=== PATIENT | female | born 1970 | race Caucasian/White ===

== ENCOUNTER 2023-09-24 12:16 | Inpatient (IN) | payer OTHER, SELFPAY ==
[2023-09-24] VITALS (39 sets, daily range): BP systolic 107–126; BP diastolic 52–81; PULSE 95–120; RESP 12–24; TEMP 36.4–36.8; O2SAT 95–100; BMI 33.3
--- NOTE | ~2023-09-24 | XR_ITS ---
EXAM: XR abdomen/kub 1V DATE: 10/03/2023 15:13 HISTORY: abdominal distention . COMPARISON: CT cap 09/25/2023. FINDINGS: Partially visualized posterior lumbar fusion hardware with interbody device. Bilateral tub al ligation. Left lower quadrant drainage catheter, tip terminating over the midline. Incompletely vi sualized shunt tubing terminating over the midline. Normal bowel gas pattern. Enlarged liver. Pelvic phleboliths. Degenerative changes in the spine and bilateral hips. IMPRESSION: No graphic evidence of obstruction or ileus. Reviewed, dictated and finalized at location K. CTOR OF RESERVATIONS
--- NOTE | ~2023-09-24 | CT_ITS ---
EXAMINATION: CT chest abdomen pelvis wo con DATE: 09/25/2023 20:42 CUSTOMER OPERATIONS INTERN INDICATION: Anemia. TECHNIQUE: Computed tomography (CT) of the chest, abdomen, and pelvis was performed without intraveno us contrast. The dose-length product was 1581.39 mGy-cm. Automated exposure control and iterative rec onstruction technique were employed. COMPARISON: None FINDINGS: CHEST CT: Elevated right diaphragm. Tracheostomy tube is present. There is fusiform ascending thoracic aortic a neurysm measuring 4.2 cm. Borderline heart size. No significant pleural or pericardial effusion. Ther e is bilateral lower lobe consolidation which may represent atelectasis or pneumonia. There are patch y groundglass opacities of the left upper lobe. ABDOMEN/PELVIS CT: There are changes of gastric bypass surgery. The liver, spleen, pancreas, adrenal glands are unremark able. Bladder wall is thickened. There is Neville catheter in the bladder. There is perivesical fatty i nfiltration. Findings suspicious for cystitis. There is bilateral hydronephrosis. Nonobstructive anna l pattern. There is a right ventriculoperitoneal shunt. There is a jejunal tube. Surgical spinal feng ges consistent with L4-5 fusion and discectomy. Moderate thoracic and lumbar spondylosis. IMPRESSION: 1. Bilateral airspace disease which may represent atelectasis and/or pneumonia. 2: Ascending thoracic fusiform aneurysm measuring 4.2 cm. 3: Moderate diffuse bladder wall thickening with perivesical fatty infiltration, consistent with cys titis. Moderate bilateral hydronephrosis. Reviewed, dictated and finalized at location A. OMER OPERATIONS INTERN IMPRESSION: 1. Bilateral airspace disease which may represent atelectasis and/or pneumonia. 2: Ascending thoracic fusiform aneurysm measuring 4.2 cm. 3: Moderate diffuse bladder wall thickening with perivesical fatty infiltratio n, consistent with cystitis. Moderate bilateral hydronephrosis.
--- NOTE | ~2023-09-24 | XR_ITS ---
EXAMINATION: XR chest 1V portable Exam Date/Time: 10/03/2023 15:05 FINANCIAL PLANNING ADVISER HISTORY: sob Comparison: 09/25/2023. RESULT: Lines, tubes, and devices: Tracheostomy tube in place. Shunt tubing traverses the right chest. Lungs and pleura: Low volumes with crowding. Streaky bibasilar opacities. Patchy increasing retrocar diac opacity. Cardiomediastinal silhouette: Stable. Other: No acute osseous or upper abdominal finding. IMPRESSION: Low volumes crowding and bibasilar atelectasis. Increased retrocardiac opacity may represent atelecta sis or infection, aspiration could also be considered. Reviewed, dictated and finalized at location K. NCIAL PLANNING ADVISER IMPRESSION: Low volumes crowding and bibasilar atelectasis. Increased retrocardiac opacity may represent atelectasis or infection, aspiration could also be considered.
--- NOTE | ~2023-09-24 | XR_ITS ---
EXAMINATION: XR abdomen gastric tube rechec DATE: 10/11/2023 13:58 INDICATION: Jejunostomy tube placement. TECHNIQUE: A semierect view of the abdomen was obtained. COMPARISON: CT abdomen and pelvis 09/25/2023 FINDINGS: The right lateral aspect of the abdomen is excluded. There are no dilated loops of bowel. T here is a jejunostomy tube in expected position. There is contrast in the tube and in bowel. There ar e changes of posterior fusion procedure in lumbar spine. There are inserts in the fallopian tubes. IMPRESSION: 1. Jejunostomy tube in expected position. Reviewed, dictated and finalized at location A. CIATE PASTOR
--- NOTE | ~2023-09-24 | US_ITS ---
US renal BI 09/26/2023 11:35 Procedure: Realtime transabdominal ultrasound of the kidneys and bladder. Indication: Elevated creatinine. Comparison: No prior studies for comparison. Findings: Renal echotexture is normal bilaterally without hydronephrosis, contour deforming mass or r enal calculus. The right kidney measures 11.6 cm and left kidney measures 12 cm. Bladder is decompre ssed by Neville catheter. Impression: 1: Unremarkable renal ultrasound. No stones, masses or hydronephrosis. Reviewed, dictated and finalized at location A. IC HEALTH TECHNICIAN Impression: 1: Unremarkable renal ultrasound. No stones, masses or hydronephrosis.
--- NOTE | ~2023-09-24 | XR_ITS ---
EXAMINATION: XR chest 1V portable INDICATION: Hypoxia TECHNIQUE: Portable AP chest at 1809 hours COMPARISON: 10/07/2023 FINDINGS: A tracheostomy is in place. There is mild atelectasis of the lung bases. No pleural effusio n or pneumothorax. The cardiomediastinal silhouette is stable. BUCKLE STRAP PUNCHER shunt catheter tubing courses over the right thorax. IMPRESSION: 1. Mild atelectasis of the lung bases. Reviewed, dictated and finalized at location F. OUND SALES CONSULTANT
--- NOTE | ~2023-09-24 | XR_ITS ---
Portable chest x-ray Comparison: 10/03/2023 Clinical History: Fever Findings: Tracheostomy cannula and PHOTOGRAPHIC ARTIST shunt are present. Lungs are clear, without focal consolidatio n or pleural effusion. Stable elevation right hemidiaphragm. Cardiomediastinal silhouette is stable. Bones and soft tissues are unremarkable. Impression: Clear lungs. Support tubes, as above. Reviewed, dictated and finalized at location . TER HELPER Impression: Clear lungs. Support tubes, as above.
--- NOTE | ~2023-09-24 | XR_ITS ---
XR chest 1V portable DATE: 09/25/2023 05:48 INDICATION: Tracheostomy secretions TECHNIQUE: Portable upright AP chest on 09/25/2023 at 0536 hours COMPARISON: None FINDINGS: Tracheostomy tube appears in satisfactory position. There are bibasilar pulmonary infiltrates and/or atelectasis. There is mild elevation of the right le af of the diaphragm. Heart size appears normal. No hilar or mediastinal enlargement is evident. No pneumothorax is detecte d. Right ventriculoperitoneal shunt catheter tubing is noted. IMPRESSION: Bibasilar infiltrate and/or atelectasis Tracheostomy tube Ventriculoperitoneal shunt catheter Reviewed, dictated and finalized at location A. NSED LAND SURVEYOR
--- NOTE | 2023-09-24 12:14 | ED.GENADULT ---
HPI - General Adult General Chief complaint: Recheck/Abnormal Lab/Rx Stated complaint: abn labs Source: family and EMS Mode of arrival: EMS History of Present Illness HPI narrative: 53 years old white female came from rehab by ambulance because of abnormal blood workup indicating does kidney is not working well. Patient got discharged from [facility] September 13, 2023 to rehab. Status post brain tumor resection with a lot of complication, currently patient have tracheostomy and feeding tube. Feeding tube probably clogged Sister at the bedside who is telling me that the last time so the patient was 3 days ago and was more lethargic and tired than today. Today looks much better. sister telling me that patient is bed ridden, Axel lift Related Data Allergies Allergy/AdvReac Type Severity Reaction Status Date / Time No Known Allergies Allergy Verified 09/24/23 12:27 Review of Systems Review of Systems: ROS unobtainable: Yes unobtainable due to medical condition Exam Narrative: General appearance: Well-developed, well-nourished , nonverbal, follow verbal commands Skin: Normal color Head: right cerebral shunt, status post surgery surgical scar dry and clean Eyes: Clear conjunctiva ENT: tracheostomy tube in place Chest and respiratory: Airway patent, no respiratory distress, no accessory muscle use Heart: Regular rate/rhythm Abdomen: Soft, nontender, no organomegaly, quiet bowel sounds, feeding tube in place Musculoskeletal: patient can wiggle his toes bilaterally, ankle and feet support cushion in place Neurologic: Alert , following verbal commands, nonverbal Course Consultations Consultation #1: Dr. Santizo Time: 19:27 Vital Signs Vital signs: Vital Signs Temperature 36.8 C 09/24/23 12:15 Pulse Rate 116 H 09/24/23 12:15 Respiratory Rate 24 H 09/24/23 12:15 Blood Pressure 112/70 09/24/23 12:15 Pulse Oximetry 99 09/24/23 12:15 Oxygen Delivery Trach Collar 09/24/23 12:15 Oxygen Flow Rate 3 09/24/23 12:15 Temperature 36.8 C 09/24/23 12:15 Pulse Rate 111 H 09/24/23 15:47 Respiratory Rate 20 09/24/23 15:47 Blood Pressure 119/79 09/24/23 15:46 Pulse Oximetry 99 09/24/23 15:47 Oxygen Delivery Trach Collar 09/24/23 12:15 Oxygen Flow Rate 3 09/24/23 12:15 Medical Decision Making MDM Narrative Medical decision making narrative: patient came from rehab in for elevated creatinine. Vital signs are stable, physical examination as above a, Differential diagnosis dehydration, electrolyte imbalance Blood workup showed hemoglobin of 6.8, according to the was 8.310 days ago. Creatinine today is 2.9, according to was 1.1 10 days ago. 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 Patient used to be on dialysis for few months, last 1 was 3 weeks ago . dialysis was stopped by her customer engagement analyst who requested to check blood test every week to monitor her creatinine. According to the that patient had brain tumor, surgery with a lot of complication including tracheostomy, feeding tube placement and kidney failure / on hemodialysis. Patient to be admitted to the hospitalist, Dr. alberts was notified, 2 units of packed RBCs ordered, 2 L of normal saline IV ordered Differential Diagnosis Differential Diagnosis: as above Medical Records Medical records reviewed: Yes I reviewed the external patient's medical records. Vital Signs Vital Signs: Vital Signs Temperature 36.8 C 09/24/23 12:15 Pulse Rate 116 H 09/24/23 12:15 Respiratory Rate 24 H 09/24/23 12:15 Blood Pressur
[2023-09-24 13:47] LABS: Basophils Percent Auto 0.2 % (0.2-1.2); Eosinophils Absolute Auto 0.3 K/mm3 (0-0.3); Eosinophils Percent Auto 2.5 % (0-4.4); Immature Granulocyte Absolute 0.08 K/mm3 (0.00-0.031); Immature Granulocyte Percent A 0.7 % (0-0.5); Lymphocytes Absolute Auto 2.02 K/mm3 (0.9-3.2); Lymphocytes Percent Auto 18.5 % (18.3-44.2); Mean Corpuscular HGB Conc 27.2 g/dl (32-36); Mean Corpuscular Hemoglobin 31.1 pg (26-34); Mean Corpuscular Volume 114.2 fl (80-100); Mean Platelet Volume 12.2 fl (7.4-10.4); Monocytes Absolute Auto 0.7 K/mm3 (0.1-0.6); Monocytes Percent Auto 6.4 % (2.6-8.5); Neutrophils Absolute Auto 7.8 K/mm3 (1.3-6.7); Neutrophils Percent Auto 71.7 % (45.5-73.1); Platelet Count Result 353 k/mm3 (150-375); Red Blood Count 2.19 M/mm3 (4.2-5.4); Red Cell Distribution Width 17.3 % (11.5-14.5); White Blood Count 10.9 K/mm3 (4.5-10.0)
[2023-09-24] MEDS: SODIUM CHLORIDE 0.9% IV 1,000 ML 999 ML IV CONT ×2 (13:48→19:16)
[2023-09-24 13:53] LABS: Alanine Aminotransferase 25 U/L (6-35); Albumin Level 3.4 g/dL (3.5-5.1); Alkaline Phosphatase 91 U/L (38-126); Anion Gap 8 mmol/L (8-16); Aspartate Amino Transferase 25 U/L (14-36); Bilirubin,Total 0.4 mg/dL (0.2-1.3); Blood Urea Nitrogen 103 mg/dL (7-17); Calcium 9.6 mg/dL (8.4-10.2); Carbon Dioxide 28 mmol/L (22-30); Chloride 123 mmol/L (98-107); Estimated CRCL calculation 22 ml/min; Estimated Glomerular Filt Rate 17; Glucose 102 mg/dL (65-110); Potassium 5.4 mmol/L (3.4-5.0); Sodium 159 mmol/L (137-145)
[2023-09-24 14:01] LABS: Hemoglobin 6.8 g/dL (12.0-15.0)
--- NOTE | 2023-09-24 20:32 | PM.IMHP ---
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 In emergency room patient was found to have a sodium to be 159, BUN of 103, creatinine of 2.9, potassium of 5.4, hemoglobin of 6.8 MCV of 114, patient tested negative for RSV, influenza type a, influenza type B and COVID-19. History has been obtained from who is at bedside. Review of Systems Review of Systems: ROS unobtainable: Yes unobtainable due to mental status (Encephalopathy, unresponsive) PMFSH Social History Social History Smoking status: Never smoker Alcohol intake: never Substance use: never Substance use type: does not use Spiritual care concerns: No Meds Home Medications and Allergies Home Medications Medication Instructions Recorded Confirmed Type Dakin's Solution 1 dose topical BID 09/24/23 09/24/23 History Jevity 1.2 Redd 75 ml feeding tube Q1H 09/24/23 09/24/23 History Miralax 17 g feeding tube Q12H PRN 09/24/23 09/24/23 History constipation. albuterol sulfate 2.5 mg/3 mL 2.5 mg inhalation Q4H PRN SOB 09/24/23 09/24/23 History (0.083 %) solution for nebulization amlodipine 5 tablet J-tube DAILY 09/24/23 09/24/23 History armodafinil 150 mg J-tube DAILY 09/24/23 09/24/23 History ascorbate calcium (vitamin C) 500 mg feeding tube DAILY 09/24/23 09/24/23 History famotidine 2.5 ml J-tube DAILY 09/24/23 09/24/23 History magnesium hydroxide 30 ml feeding tube Q24H PRN 09/24/23 09/24/23 History gastric secretions. scopolamine base 1 mg over 3 days 1 patch transdermal Q72H 09/24/23 09/24/23 History transdermal patch senna 5 ml J-tube QHS 09/24/23 09/24/23 History thiamine HCl (vitamin B1) 100 mg J-tube DAILY 09/24/23 09/24/23 History Allergies Allergy/AdvReac Type Severity Reaction Status Date / Time No Known Allergies Allergy Verified 09/24/23 12:27 Vital Signs Vital Signs - 24 hr 09/24/23 12:15 09/24/23 12:40 09/24/23 12:46 Temperature 98.2 F Pulse Rate 116 H 120 H 117 H Respiratory Rate 24 H 24 H 22 H Blood Pressure 112/70 122/79 Pulse Oximetry 99 99 95 Oxygen Delivery Trach Collar Oxygen Flow Rate 3 09/24/23 12:47 09/24/23 13:26 09/24/23 13:30 Temperature Pulse Rate 118 H 120 H 115 H Respiratory Rate 17 20 13 Blood Pressure Pulse Oximetry 98 99 Oxygen Delivery Oxygen Flow Rate 09/24/23 13:48 09/24/23 14:00 09/24/23 14:15 Temperature Pulse Rate 118 H 111 H 110 H Respiratory Rate 22 H 12 16 Blood Pressure Pulse Oximetry 97 97 99 Oxygen Delivery Oxygen Flow Rate 09/24/23 14:16 09/24/23 14:30 09/24/23 14:31 Temperature Pulse Rate 109 H 110 H 110 H Respiratory Rate 15 18 19 Blood Pressure 111/70 108/70 Pulse Oximetry 100 96 97 Oxygen Delivery Oxygen Flow Rate 09/24/23 14:47 09/24/23 15:00 09/24/23 15:01 Temperature Pulse Rate 111 H 111 H 114 H Respiratory Rate 20 15 20 Blood Pressure 124/80 Pulse Oximetry 100 99 100 Oxygen Delivery Oxygen Flow Rate 09/24/23 15:15 09/24/23 15:16 09/24/23 15:32 Temperature Pulse Rate 104 H 112 H 113 H Respiratory Rate 17 20 20 Blood Pressure 119/81 Pulse Oximetry 100 100 99 Oxygen Delivery Oxygen Flow Rate 09/24/23 15:46 09/24/23 15:47 09/24/23 16:15 Temperature Pulse Rate 115 H 111 H 113 H Respiratory Rate 22 H 20 18 Blood Pressure 119/79 Pulse Oximetry 96 99 98 Oxygen Delivery Oxygen Flow Rate 09/24/23 16:16 09/24/23 16:38 09/24/23 16:46 Temperature Pulse Rate 110 H 110 H Respiratory Rate 14 17 20 Blood Pressure 110/66 125/69 Pulse
[2023-09-24] MEDS: SODIUM CHLORIDE 0.9% IV 250 ML 30 ML IV CONT (20:58)
[2023-09-24] MEDS: TUBING, BLOOD SET 1 EACH XX (20:59)
--- NOTE | 2023-09-24 23:26 | PC.NURSE ---
This patient, Veronica Barragan, was admitted to 3 [facility] Surg Room 301-01. Patient/family oriented to hospital policies and general routines including ID bracelet, bed and alarms, visiting hours, pain management, procedures, bathroom and other care routines, personal items, smoking policy, room service/diet, and visiting hours. Information on how to activate the Rapid Response Team has been discussed. Patient/Family are encouraged to report perceived risks to care and to ask questions if they do not understand what they are told or what they should do.
[2023-09-25] VITALS (9 sets, daily range): BP systolic 107–136; BP diastolic 65–76; PULSE 92–108; RESP 18–20; TEMP 36.2–36.6; O2SAT 94–99; BMI 33.3
[2023-09-25] MEDS: SODIUM CHLORIDE 0.9% IV 1,000 ML 125 ML IV CONT (02:43)
[2023-09-25] MEDS: TUBING, BLOOD PLUM PUMP TUBING 1 EACH XX (03:45)
[2023-09-25 04:30] LABS: Influenza A QL RT-PCR Negative (Negative); Influenza B QL RT-PCR Negative (Negative); RSV RNA, RT-PCR Negative (Negative); SARS-CoV-2 RNA PCR Negative (Negative)
[2023-09-25 06:15] LABS: Hematocrit 31.2 % (37.0-47.0); Hemoglobin 8.9 g/dL (12.0-15.0); Mean Corpuscular HGB Conc 28.5 g/dl (32-36); Mean Corpuscular Hemoglobin 30.6 pg (26-34); Mean Corpuscular Volume 107.2 fl (80-100); Mean Platelet Volume 12.1 fl (7.4-10.4); Platelet Count Result 259 k/mm3 (150-375); Red Blood Count 2.91 M/mm3 (4.2-5.4); White Blood Count 8.6 K/mm3 (4.5-10.0)
[2023-09-25 06:34] LABS: Anion Gap 5 mmol/L (8-16); Blood Urea Nitrogen 98 mg/dL (7-17); Calcium 8.9 mg/dL (8.4-10.2); Carbon Dioxide 22 mmol/L (22-30); Chloride 130 mmol/L (98-107); Estimated CRCL calculation 25 ml/min; Estimated Glomerular Filt Rate 20; Glucose 77 mg/dL (65-110); Magnesium 2.9 mg/dL (1.6-2.3); Phosphorus 7.5 mg/dL (2.5-4.5); Potassium 5.1 mmol/L (3.4-5.0); Sodium 157 mmol/L (137-145)
[2023-09-25 10:14] LABS: Amorphous Sediment Urine Present; Appearance Urine Turbid (Clear); Bacteria Urine 4+ /hpf; Bilirubin Urine Negative (Negative); Blood Urine 3+ (Negative); Color Urine Yellow (Yellow); Glucose Urine UA Negative (Negative); Ketones Urine Negative (Negative); Leukocyte Esterase Ur 3+ LEU/UL (NEGATIVE); Mucus Urine Present /lpf; Need Manual Microscopic Reviewed; Nitrate Urine Negative (Negative); Non Pathogenic Casts >20; Protein Urine 3+ mg/dL (Negative); RBC Urine >100 /hpf (0-2); Specific Grav Ur 1.015 (1.001-1.035); Squamous Epithelial Cell Urine Moderate /hpf (Few); Urobilinogen Urine 0.2 mg/dL (<2.0); WBC Urine >100 /hpf (0-3); pH Urine 7.5 (5.0-9.0)
[2023-09-25 10:15] LABS: Add Urine Microscopic? YES
[2023-09-25] MEDS: amLODIPine BESYLATE 5 MG TABLET FEED TUBE (10:16)
[2023-09-25] MEDS: THIAMINE HCL 100 MG TABLET FEED TUBE (10:16)
[2023-09-25] MEDS: FAMOTIDINE 20 MG TABLET FEED TUBE (10:16)
[2023-09-25] MEDS: ASCORBIC ACID 500 MG TABLET FEED TUBE (10:16)
[2023-09-25] MEDS: DEXTROSE 5%/0.45% SOD CHL 1,000 ML 100 ML IV CONT (10:24)
[2023-09-25 10:25] LABS: Creatinine Urine 23.5 mg/dL
[2023-09-25 10:38] LABS: Sodium Urine Random 78 meq/L
--- NOTE | 2023-09-25 10:55 | PM.IMPN ---
Progress Note: A&P Assessment and Plan (1) Respiratory failure with hypoxia: Code(s): J96.91 - Respiratory failure, unspecified with hypoxia Status: Acute Assessment and Plan: Patient with chronic respiratory failure requiring trach. She normally on 5L O2 via trach collar. CXR showing bibasilar infiltrates and/or atelectasis Trach changed out over night. Routine trach care with suctioning as needed. (2) CONCEPCION (acute kidney injury): Code(s): N17.9 - Acute kidney failure, unspecified Status: Acute Assessment and Plan: BUN 103 and Cr 2.9 on admission. No old labs to establish baseline renal function. Likely to be pre renal and was started on IV fluids as NS. Repeat values better. Neville has been replaced and draining well so unlikely post-renal. Nephrology consulted. Decreased IV fluid rate and increase free water flushes. Renal US ordered. IV fluids adjusted. Continue to monitor BUN and creatinine Daily intake and output. Serial BMP (3) Hypernatremia: Code(s): E87.0 - Hyperosmolality and hypernatremia Status: Acute Assessment and Plan: Related to TF most likely. Benson 78 but could be higher if she had normal renal function. Advance water flushes Continue to monitor (4) Quadriplegia: Code(s): G82.50 - Quadriplegia, unspecified Status: Acute Assessment and Plan: Related to brain tumor and surgery Round the clock turning schedule Routine skin care (5) AMS (altered mental status): Code(s): R41.82 - Altered mental status, unspecified Status: Acute Assessment and Plan: Patient brought to the ED for alteed mental status. Probably metabolic encephalopathy related to above Continue current treatment as above Monitor for signs of improvement (6) Megaloblastic anemia: Code(s): D53.1 - Other megaloblastic anemias, not elsewhere classified Status: Acute Assessment and Plan: Hgb 6.8 on admission. No baseline Hgb to compare No evidence of acute blood loss but will perform further evaluation. Not on anticoagulation. No anemia evaluation performed prior to transfusion She was transfused on admission 2Units PRBC. Check stool guaiac. Check CT C/A/P Monitor HH (7) Dysphagia: Code(s): R13.10 - Dysphagia, unspecified Status: Acute Assessment and Plan: PEG tube in place. Resume tube feedings (8) Hyperkalemia: Code(s): E87.5 - Hyperkalemia Status: Acute Assessment and Plan: Potassium mildly elevated at 5.4 felt related to the CONCEPCION. Cortisol level elevated at 36 and TSH elevated at 6.9. Potassium better with IV fluids Monitor. (9) Brain tumor: Code(s): D49.6 - Neoplasm of unspecified behavior of brain Status: Acute Assessment and Plan: Status post resection Plan DVT Prophylaxis - SCDs Code status - full Subjective Date/time seen: 09/25/23 10:56 Interval history: 53yo female with hx of brain tumor s/p resection, ventriculoperitoneal shunt, tracheostomy, dysphagia with GTube and quadriplegia sent in from the [place] [facility] for altered mental status. Patient has eyes open but does not respond or shake her head to questions. Per RN, jennifer is able to nod when asked her name and able to give thumbs up. RN changed out the trach last night. Neville also was changed out. Review of Systems Review of Systems: ROS unobtainable: Yes unobtainable due to mental status Exam Narrative: AF 97.9 131/72 101 18 97% HFNC Gen - NARD lying semi-recumbent in bed HEENT - eyes open, dysconjugate gaze, pupils reactive, cruz not track. dry MM. well healed surgical scalp changes. right sided shunt noted neck - trach midline with gurgliing respirations Chest - coarse BS anteriroly. lone stitch noted left upper chest. CV - RRR S1/S2 Abd - Soft, ND, +BS, Gtube site clean and dry - Neville secured draining cloudy dark yellow urine Ext
--- NOTE | 2023-09-25 11:30 | PM.CNNEP ---
Assessment and Plan Assessment and plan (1) CONCEPCION (acute kidney injury): Code(s): N17.9 - Acute kidney failure, unspecified Status: Acute Assessment and Plan: the patient has acute kidney injury. She had this before and she even needed dialysis. That was a result of sepsis however. Her creatinine got down to about 1.1 according to the . That was the value on discharge from the LT[facility]. Now the creatinine is up to 2.5. I suspect that the patient is probably dehydrated. Will check a renal ultrasound and urine electrolytes as well as a CPK. She has received some IV fluids and will continue to receive IV fluids going forward. (2) Hypernatremia: Code(s): E87.0 - Hyperosmolality and hypernatremia Status: Acute Assessment and Plan: The patient's sodium level is high. She is free water depleted. She has increased insensible loss because of her tracheostomy. She was getting tube feed[facility] routinely [facility] the [facility] so she is probably behind in fluid. She might have DI because of the substantial amount of free water she was requiring to maintain her sodium. Will check urine osmolality and an ADH level. (3) AMS (altered mental status): Code(s): R41.82 - Altered mental status, unspecified Status: Acute Assessment and Plan: Most likely due to renal insufficiency plus the hypernatremia. I am not sure if a CT scan would be helpful. (4) Anemia: Code(s): D64.9 - Anemia, unspecified Status: Acute Assessment and Plan: Hemoglobin 8.9. She received some blood yesterday. Will check irons and vitamins. (5) Hyperkalemia: Code(s): E87.5 - Hyperkalemia Status: Acute Assessment and Plan: Potassium is down to 5.1. This should probably improved with fluids. (6) Quadriplegia: Code(s): G82.50 - Quadriplegia, unspecified Status: Acute Assessment and Plan: Status post brain surgery History of Present Illness Reason for Consult Consult date: 09/25/23 Chief Complaint Chief complaint: Anemia,CONCEPCION History of Present Illness Narrative: Veronica is an unfortunate 53-year-old lady who has had a brain tumor resection, ventricular peritoneal shunt, tracheostomy, and quadriplegia. The patient had her surgery done last fall. She had multiple complications from the surgery including sepsis, respiratory failure, severe hypotension, and renal failure. The patient required dialysis. She was on CRRT for a few weeks in early July and then was on intermittent hemodialysis for a few weeks after that and her kidney function improved such that she was off dialysis about 4-6 [address] ago[address] Along the way she had several other issues including the need for tube feedings. She was given standard tube feedings. She was given flushes at [facility] but her sodium levels betsy so she was given extra tube feeding flushes which eventually amounted [id number] every 2hours. After she was in the hospital she went to a long-term acute care. There she eventually Improved. She was a little more interactive, she was able to shrug her shoulders, will her toes, and give thumbs-up signs bilaterally. She was then transferred to an outpatient facility called [facility] as she was felt not to need long-term acute care any longer and this facility was closeest to her family. There she continued to receive tube feedings and she was getting physical therapy. She was not getting as much tube feeding flushes as she had been at long-term acute care. The patient developed changes in her in her mental status over the last few days. She was sent to the emergency room found to have a sodium of 159, BUN of 103, and creatinine of 2.9. She was given IV fluids and admitted to the floor. Currently the patient does not move much. Occasionally she tries to smile a little bit. She cannot give her review of syst
[2023-09-25 12:58] LABS: Creatine Kinase 73 U/L (30-135)
--- NOTE | 2023-09-25 13:03 | PC.NURSE ---
Patient resting comfortably. Family at bedside. Trio rounds with Dr. Santizo. Asked him about pain medication for patients sacral wound. Boots reapplied to patient feet. Skin intact.
[2023-09-25 13:11] LABS: Anion Gap 9 mmol/L (8-16); Blood Urea Nitrogen 89 mg/dL (7-17); Calcium 8.9 mg/dL (8.4-10.2); Carbon Dioxide 23 mmol/L (22-30); Chloride 129 mmol/L (98-107); Estimated CRCL calculation 26 ml/min; Estimated Glomerular Filt Rate 21; Glucose 134 mg/dL (65-110); Potassium 4.7 mmol/L (3.4-5.0); Sodium 161 mmol/L (137-145)
[2023-09-25 13:20] LABS: Iron 28 ug/dL (37-170)
[2023-09-25 13:30] LABS: Percent Iron Saturation 14 % (20-50)
[2023-09-25 14:03] LABS: Folic Acid 8.2 ng/mL (2.76->20)
[2023-09-25 14:42] LABS: Total Protein Urine Random > 600 mg/dL
[2023-09-25 18:48] LABS: Free T4 Free Thyroxine Reflex 1.06 ng/dL (0.78-2.19)
[2023-09-25 18:54] LABS: Anion Gap 12 mmol/L (8-16); Blood Urea Nitrogen 86 mg/dL (7-17); Calcium 8.5 mg/dL (8.4-10.2); Carbon Dioxide 19 mmol/L (22-30); Chloride 126 mmol/L (98-107); Estimated CRCL calculation 30 ml/min; Estimated Glomerular Filt Rate 25; Glucose 187 mg/dL (65-110); Potassium 4.2 mmol/L (3.4-5.0); Sodium 157 mmol/L (137-145)
[2023-09-25 23:02] LABS: Total Triiodothyronine (T3) 1.43 NG/ML (0.97-1.69)
[2023-09-26] VITALS (16 sets, daily range): BP systolic 111–132; BP diastolic 64–79; PULSE 6–107; RESP 18–22; TEMP 36.6–37.7; O2SAT 95–100
[2023-09-26 06:15] LABS: Basophils Percent Auto 0.1 % (0.2-1.2); Eosinophils Absolute Auto 0.3 K/mm3 (0-0.3); Eosinophils Percent Auto 3.4 % (0-4.4); Hematocrit 29.2 % (37.0-47.0); Hemoglobin 8.5 g/dL (12.0-15.0); Immature Granulocyte Absolute 0.05 K/mm3 (0.00-0.031); Immature Granulocyte Percent A 0.6 % (0-0.5); Lymphocytes Absolute Auto 1.55 K/mm3 (0.9-3.2); Lymphocytes Percent Auto 18.4 % (18.3-44.2); Mean Corpuscular HGB Conc 29.1 g/dl (32-36); Mean Corpuscular Hemoglobin 30.2 pg (26-34); Mean Corpuscular Volume 103.9 fl (80-100); Mean Platelet Volume 12.1 fl (7.4-10.4); Monocytes Absolute Auto 0.5 K/mm3 (0.1-0.6); Monocytes Percent Auto 6.4 % (2.6-8.5); Neutrophils Percent Auto 71.1 % (45.5-73.1); Platelet Count Result 253 k/mm3 (150-375); Red Blood Count 2.81 M/mm3 (4.2-5.4); Red Cell Distribution Width 18.3 % (11.5-14.5); White Blood Count 8.4 K/mm3 (4.5-10.0)
[2023-09-26] MEDS: WATER FOR IRRIGATION, STERILE 500 ML BOTTLE (06:15)
[2023-09-26 08:02] LABS: Anisocytosis 1+ (NORMAL); Hypochromasia 1+ (NORMAL); Platelet Estimate Adequate (Adequate); Schistocytes None Seen (NORMAL)
[2023-09-26 08:19] LABS: Alanine Aminotransferase 19 U/L (6-35); Albumin Level 2.8 g/dL (3.5-5.1); Alkaline Phosphatase 69 U/L (38-126); Anion Gap 12 mmol/L (8-16); Aspartate Amino Transferase 26 U/L (14-36); Bilirubin,Total 0.5 mg/dL (0.2-1.3); Blood Urea Nitrogen 78 mg/dL (7-17); Calcium 8.5 mg/dL (8.4-10.2); Carbon Dioxide 21 mmol/L (22-30); Chloride 123 mmol/L (98-107); Estimated CRCL calculation 33 ml/min; Estimated Glomerular Filt Rate 28; Glucose 124 mg/dL (65-110); Magnesium 2.5 mg/dL (1.6-2.3); Phosphorus 5.5 mg/dL (2.5-4.5); Potassium 4.1 mmol/L (3.4-5.0); Sodium 156 mmol/L (137-145)
[2023-09-26] MEDS: IPRATROPIUM BR 0.02% INH SOLN 0.5 MG/2.5 ML VIAL INHALATION ×3 (08:42→20:59)
[2023-09-26] MEDS: DORNASE ALFA INH SOLN 1 MG/ML 2.5 ML AMP 2.5 MG INHALATION ×2 (08:42→20:59)
[2023-09-26] MEDS: ALBUTEROL SULFATE NEB 2.5 MG/3 ML INH INHALATION ×3 (08:42→20:59)
[2023-09-26] MEDS: DEXTROSE 5%/0.45% SOD CHL 1,000 ML 100 ML IV CONT ×2 (08:51→20:38)
[2023-09-26 09:40] LABS: Creatinine Urine 23.3 mg/dL
[2023-09-26 09:45] LABS: Sodium Urine Random 72 meq/L
[2023-09-26] MEDS: SCOPOLAMINE 1 MG PATCH 1 PATCH TRANSDERM (09:47)
[2023-09-26] MEDS: THIAMINE HCL 100 MG TABLET FEED TUBE (09:52)
[2023-09-26] MEDS: SOD HYPOCHLORITE 1/4 STRENGTH 473 ML 1 APPLIC TOPICAL ×2 (09:52→20:40)
[2023-09-26] MEDS: amLODIPine BESYLATE 5 MG TABLET FEED TUBE (09:52)
[2023-09-26] MEDS: ASCORBIC ACID 500 MG TABLET FEED TUBE (09:53)
[2023-09-26] MEDS: FAMOTIDINE 20 MG TABLET FEED TUBE (09:53)
[2023-09-26 11:03] LABS: Total Protein Urine Random > 200 mg/dL
--- NOTE | 2023-09-26 11:26 | PM.IMPN ---
Progress Note: A&P Assessment and Plan (1) Respiratory failure with hypoxia: Code(s): J96.91 - Respiratory failure, unspecified with hypoxia Status: Acute Assessment and Plan: Patient with chronic respiratory failure requiring trach. She normally on 5L O2 via trach collar. CXR showing bibasilar infiltrates and/or atelectasis Trach changed out the other night Routine trach care with suctioning as needed. (2) CONCEPCION (acute kidney injury): Code(s): N17.9 - Acute kidney failure, unspecified Status: Acute Assessment and Plan: BUN 103 and Cr 2.9 on admission. No old labs to establish baseline renal function. Neville has been replaced and draining well CT scan showing bilateral hydronephrosis and moderate diffuse bladder wall thickening c/w cystitis UA concerning for infection. Prot/Cr ration 25g (and 8gm on repeat). TCK 73. Nephrology consulted and appreciate their input. Possibly pre-renal although has possibly ureteral obstruction from bladder wall thickening. Increased free water flushes. Repeat renal function values better. Renal US pending. IV fluids adjusted. Continue to monitor BUN and creatinine. Daily intake and output. (3) Hypernatremia: Code(s): E87.0 - Hyperosmolality and hypernatremia Status: Acute Assessment and Plan: Related to TF most likely and increased insensible losses. Benson 78 but could be higher if she had normal renal function. Advanced water flushes Continue to monitor (4) AMS (altered mental status): Code(s): R41.82 - Altered mental status, unspecified Status: Acute Assessment and Plan: Patient brought to the ED for alteed mental status. Probably metabolic encephalopathy related to above Continue current treatment as above Monitor for signs of improvement (5) Quadriplegia: Code(s): G82.50 - Quadriplegia, unspecified Status: Acute Assessment and Plan: Related to brain tumor and surgery Round the clock turning schedule Routine skin care (6) Megaloblastic anemia: Code(s): D53.1 - Other megaloblastic anemias, not elsewhere classified Status: Acute Assessment and Plan: Hgb 6.8 on admission. No baseline Hgb to compare but family states patient had an extensive workup and related to BM depression No evidence of acute blood loss CT Ch/A/P showing no etiology of blood loss. Not on anticoagulation. No anemia evaluation performed prior to transfusion but Iron studies consistent with anemia of chronic disease. B12/folate normal. She was transfused on admission 2Units PRBC. Check stool guaiac. Check CT C/A/P Monitor HH (7) Dysphagia: Code(s): R13.10 - Dysphagia, unspecified Status: Acute Assessment and Plan: PEG tube in place. Continue tube feedings (8) Hyperkalemia: Code(s): E87.5 - Hyperkalemia Status: Acute Assessment and Plan: Potassium mildly elevated at 5.4 felt related to the CONCEPCION. Cortisol level elevated at 36 and TSH elevated at 6.9. Potassium normal now Monitor. (9) Brain tumor: Code(s): D49.6 - Neoplasm of unspecified behavior of brain Status: Acute Assessment and Plan: Status post resection Take out stitch left upper chest Plan DVT Prophylaxis - SCDs Code status - full Subjective Date/time seen: 09/26/23 11:26 Interval history: 53yo female with hx of brain tumor s/p resection, ventriculoperitoneal shunt, tracheostomy, dysphagia with GTube and quadriplegia sent in from the [facility] for altered mental status. Patient has eyes open but poorly responsive. Family in the room and they were updated about plan of care. Stitch has been in place for permacath for 1 month Exam Narrative: AF 99.4 111/65 100 22 95% HF trach therapy Gen - NARD lying semi-recumbent in bed HEENT - eyes open, dysconjugate gaze neck - trach midline with gurgling respirations Chest - coarse
--- NOTE | 2023-09-26 13:01 | PM.PNNEP ---
Progress Note: A&P Assessment and Plan (1) CONCEPCION (acute kidney injury): Code(s): N17.9 - Acute kidney failure, unspecified Status: Acute Assessment and Plan: the patient has acute kidney injury. She had this before and she even needed dialysis. That was a result of sepsis however. Her creatinine got down to about 1.1 according to the . That was the value on discharge from the [facility]. Urine electrolytes are non pre renal. Urine has lots of protein. CK is normal Renal ultrasound not read yet but the images look like she has no hydro and good size kidneys with nice thick cortex. the creatinine is elevated. Unclear why possibly dehydrated? Will continue hypotonic IV fluids. (2) Hypernatremia: Code(s): E87.0 - Hyperosmolality and hypernatremia Status: Acute Assessment and Plan: The patient's sodium level is high. She is free water depleted. She has increased insensible loss because of her tracheostomy. She is getting tube feeding flushes plus hypotonic IV fluids. Sodium level has come down a little bit. Await urine osmolality and ADH. (3) AMS (altered mental status): Code(s): R41.82 - Altered mental status, unspecified Status: Acute Assessment and Plan: Most likely due to renal insufficiency plus the hypernatremia. (4) Anemia: Code(s): D64.9 - Anemia, unspecified Status: Acute Assessment and Plan: She received some blood Wednesday Hemoglobin 8.5. TSAT 14. Ferritin above 900. B12 and folate okay. (5) Hyperkalemia: Code(s): E87.5 - Hyperkalemia Status: Acute Assessment and Plan: Potassium is down to 4.1 (6) Quadriplegia: Code(s): G82.50 - Quadriplegia, unspecified Status: Acute Assessment and Plan: Status post brain surgery Subjective Date/time seen: 09/26/23 13:01 Interval history: Patient is not interactive. She does smile a little bit when I call her name. in the room we discussed the case. Exam Narrative: WDWN in NAD skin no rash head ncat lungs clear cor reg no rub abd BS+ nontender and soft ext Mild edema in the hands. Objective Data Vital Signs Vital Signs: Vital Signs - 24 hr 09/25/23 14:18 09/25/23 14:29 09/25/23 20:49 Temperature 97.4 F L Pulse Rate 108 H Respiratory Rate 18 Blood Pressure 123/76 Pulse Oximetry 94 96 95 Oxygen Delivery High Flow Therapy with Tr High Flow Therapy with Tr Oxygen Flow Rate 30 30 Fraction of Inspired Oxygen 45 45 09/25/23 20:00 09/26/23 01:29 09/26/23 00:00 Temperature 97.6 F 98.2 F Pulse Rate 108 H 107 H Respiratory Rate 20 18 Blood Pressure 136/74 124/68 Pulse Oximetry 97 96 96 Oxygen Delivery High Flow Therapy with Tr Oxygen Flow Rate 30 Fraction of Inspired Oxygen 45 09/26/23 04:40 09/25/23 20:00 09/26/23 04:00 Temperature 99.4 F Pulse Rate 105 H Respiratory Rate 20 Blood Pressure 111/65 Pulse Oximetry 96 96 97 Oxygen Delivery High Flow Therapy with Tr High Flow Therapy with Tr Oxygen Flow Rate 30 5 Fraction of Inspired Oxygen 45 45 09/26/23 08:42 09/26/23 08:42 09/26/23 09:11 Temperature Pulse Rate 96 100 Respiratory Rate 22 H 22 H Blood Pressure Pulse Oximetry 95 Oxygen Delivery High Flow Therapy with Tr Oxygen Flow Rate 30 Fraction of Inspired Oxygen 45 09/26/23 12:00 Temperature 98.5 F Pulse Rate 101 H Respiratory Rate 21 H Blood Pressure 124/64 Pulse Oximetry 99 Oxygen Delivery Oxygen Flow Rate Fraction of Inspired Oxygen Intake/Output Intake/Output: Intake & Output 09/23/23 09/24/23 09/25/23 09/26/23 23:59 23:59 23:59 23:59 Intake Total 2350 1350 3406 Output Total 2400 1000 Balance 2350 -1050 2406 Meds/Results Medications: Active Medications Generic Name Dose Route Start Last Admin Trade Name Freq PRN Reason Stop Dose Admin Albuterol 2.5
[2023-09-26] MEDS: SENNOSIDES 8.8 MG/5 ML SYRUP FEED TUBE (20:40)
[2023-09-27] VITALS (15 sets, daily range): BP systolic 94–118; BP diastolic 55–73; PULSE 73–94; RESP 13–20; TEMP 35.9–37.4; O2SAT 92–100
[2023-09-27] MEDS: ALBUTEROL SULFATE NEB 2.5 MG/3 ML INH INHALATION ×4 (01:56→20:54)
[2023-09-27] MEDS: IPRATROPIUM BR 0.02% INH SOLN 0.5 MG/2.5 ML VIAL INHALATION ×4 (01:56→20:54)
[2023-09-27 04:34] LABS: IFOB Positive Control Positive; Immunochemical Fecal Occult Bl Negative (N)
[2023-09-27] MEDS: DEXTROSE 5%/0.45% SOD CHL 1,000 ML 100 ML IV CONT ×2 (06:41→17:36)
[2023-09-27 06:51] LABS: Basophils Percent Auto 0.3 % (0.2-1.2); Eosinophils Absolute Auto 0.4 K/mm3 (0-0.3); Eosinophils Percent Auto 4.8 % (0-4.4); Hematocrit 27.8 % (37.0-47.0); Hemoglobin 7.9 g/dL (12.0-15.0); Immature Granulocyte Absolute 0.05 K/mm3 (0.00-0.031); Immature Granulocyte Percent A 0.6 % (0-0.5); Immature Platelet Fraction Pct 6.3 % (0.9-11.2); Lymphocytes Percent Auto 15.5 % (18.3-44.2); Mean Corpuscular HGB Conc 28.4 g/dl (32-36); Mean Corpuscular Volume 105.7 fl (80-100); Mean Platelet Volume 12.6 fl (7.4-10.4); Monocytes Absolute Auto 0.5 K/mm3 (0.1-0.6); Monocytes Percent Auto 6.1 % (2.6-8.5); Neutrophils Absolute Auto 5.6 K/mm3 (1.3-6.7); Neutrophils Percent Auto 72.7 % (45.5-73.1); Platelet Count Result 205 k/mm3 (150-375); Red Blood Count 2.63 M/mm3 (4.2-5.4); Red Cell Distribution Width 16.9 % (11.5-14.5); White Blood Count 7.7 K/mm3 (4.5-10.0)
[2023-09-27 07:09] LABS: Albumin Level 2.8 g/dL (3.5-5.1); Anion Gap 10 mmol/L (8-16); Blood Urea Nitrogen 68 mg/dL (7-17); Calcium 8.3 mg/dL (8.4-10.2); Carbon Dioxide 20 mmol/L (22-30); Chloride 121 mmol/L (98-107); Estimated CRCL calculation 39 ml/min; Estimated Glomerular Filt Rate 34; Glucose 115 mg/dL (65-110); Magnesium 2.4 mg/dL (1.6-2.3); Phosphorus 5.4 mg/dL (2.5-4.5); Potassium 4.5 mmol/L (3.4-5.0); Sodium 151 mmol/L (137-145)
[2023-09-27] MEDS: DORNASE ALFA INH SOLN 1 MG/ML 2.5 ML AMP 2.5 MG INHALATION ×2 (07:15→21:00)
[2023-09-27 08:30] LABS: Hypochromasia 1+ (NORMAL); Platelet Estimate Adequate (Adequate); Schistocytes None Seen (NORMAL)
[2023-09-27 08:31] LABS: Anisocytosis 1+ (NORMAL)
--- NOTE | 2023-09-27 09:51 | PM.PNNEP ---
Progress Note: A&P Assessment and Plan (1) CONCEPCION (acute kidney injury): Code(s): N17.9 - Acute kidney failure, unspecified Status: Acute Assessment and Plan: the patient has acute kidney injury. She had this before and she even needed dialysis. That was a result of sepsis however. Her creatinine got down to about 1.1 according to the . That was the value on discharge from the LT[facility]. Urine electrolytes are non pre renal. Urine has lots of protein. CK is normal Renal ultrasound not read yet but the images look like she has no hydro and good size kidneys with nice thick cortex. the creatinine is elevated. probably dehydrated. Creatinine has improved with IV fluids. Will continue hypotonic IV fluids. (2) Hypernatremia: Code(s): E87.0 - Hyperosmolality and hypernatremia Status: Acute Assessment and Plan: The patient's sodium level is high. She is free water depleted. She has increased insensible loss because of her tracheostomy. She is getting tube feeding flushes plus hypotonic IV fluids. Sodium level continues to improve. Will continue combination of hypotonic fluids plus the tube feeding flushes. Once the sodium is better we could stop the fluids and resume former tube feeding doses. (3) AMS (altered mental status): Code(s): R41.82 - Altered mental status, unspecified Status: Acute Assessment and Plan: Most likely due to renal insufficiency plus the hypernatremia. (4) Anemia: Code(s): D64.9 - Anemia, unspecified Status: Acute Assessment and Plan: She received some blood Wednesday Hemoglobin 7.9. TSAT 14. Ferritin above 900. B12 and folate okay. (5) Hyperkalemia: Code(s): E87.5 - Hyperkalemia Status: Acute Assessment and Plan: Potassium is down to 4.5 (6) Quadriplegia: Code(s): G82.50 - Quadriplegia, unspecified Status: Acute Assessment and Plan: Status post brain surgery Subjective Date/time seen: 09/27/23 09:51 Interval history: Veronica is lying comfortably in bed. Eyes open. she seemed to look at me when I called her name. Exam Narrative: WDWN in NAD skin no rash head ncat lungs A few upper airway sounds cor reg no rub no gallop abd BS+ nontender and soft ext Mild edema in the hands. Objective Data Vital Signs Vital Signs: Vital Signs - 24 hr 09/26/23 12:00 09/26/23 14:55 09/26/23 16:38 Temperature 98.5 F 99.8 F H Pulse Rate 101 H 100 Respiratory Rate 21 H 21 H Blood Pressure 124/64 132/76 Pulse Oximetry 99 99 97 Oxygen Delivery High Flow Therapy with Tr Oxygen Flow Rate 30 Fraction of Inspired Oxygen 45 09/26/23 16:38 09/26/23 16:51 09/26/23 19:44 Temperature 97.9 F Pulse Rate 98 97 89 Respiratory Rate 20 22 H 22 H Blood Pressure 118/79 Pulse Oximetry 99 Oxygen Delivery Oxygen Flow Rate Fraction of Inspired Oxygen 09/26/23 21:00 09/26/23 21:03 09/26/23 21:18 Temperature Pulse Rate 92 6 L Respiratory Rate 20 20 Blood Pressure Pulse Oximetry 96 Oxygen Delivery High Flow Therapy with Tr Oxygen Flow Rate 30 Fraction of Inspired Oxygen 45 09/27/23 00:00 09/26/23 20:00 09/27/23 01:56 Temperature 97.7 F Pulse Rate 88 88 94 Respiratory Rate 18 18 20 Blood Pressure 105/57 L Pulse Oximetry 100 100 Oxygen Delivery High Flow Therapy with Tr Oxygen Flow Rate 5 Fraction of Inspired Oxygen 45 09/27/23 02:09 09/27/23 04:00 09/27/23 07:15 Temperature 99.4 F Pulse Rate 73 91 89 Respiratory Rate 20 18 16 Blood Pressure 112/63 Pulse Oximetry 100 92 Oxygen Delivery High Flow Therapy with Tr Oxygen Flow Rate 30 Fraction of Inspired Oxygen 45 09/27/23 07:15 09/27/23 07:25 09/27/23 08:00 Temperature 97.9 F Pulse Rate 89 87 87 Respiratory Rate 16 18 18 Blood Pressure 113/67 Pulse Oximetry 100 Oxygen Delivery
[2023-09-27] MEDS: FAMOTIDINE 20 MG TABLET FEED TUBE (10:00)
[2023-09-27] MEDS: amLODIPine BESYLATE 5 MG TABLET FEED TUBE (10:00)
[2023-09-27] MEDS: ASCORBIC ACID 500 MG TABLET FEED TUBE (10:00)
[2023-09-27] MEDS: SOD HYPOCHLORITE 1/4 STRENGTH 473 ML 1 APPLIC TOPICAL (10:00)
[2023-09-27] MEDS: THIAMINE HCL 100 MG TABLET FEED TUBE (10:00)
--- NOTE | 2023-09-27 10:47 | PM.IMPN ---
Progress Note: A&P Assessment and Plan (1) Respiratory failure with hypoxia: Code(s): J96.91 - Respiratory failure, unspecified with hypoxia Status: Acute Assessment and Plan: Patient with chronic respiratory failure requiring trach. She normally on 5L O2 via trach collar. CXR showing bibasilar infiltrates and/or atelectasis Trach changed out here Routine trach care with suctioning as needed. (2) CONCEPCION (acute kidney injury): Code(s): N17.9 - Acute kidney failure, unspecified Status: Acute Assessment and Plan: BUN 103 and Cr 2.9 on admission. Per family, last Cr 1.13 Neville has been replaced and draining well CT scan showing bilateral hydronephrosis and moderate diffuse bladder wall thickening c/w cystitis UA concerning for infection. Prot/Cr ratio 25g (and 8gm on repeat). TCK 73. Nephrology consulted and appreciate their input. Possibly pre-renal although has possibly ureteral obstruction from bladder wall thickening. Increased free water flushes and in IVF Renal US showing no stones, masses or hydronephrosis Was Neville obstructed? Repeat renal function values better. Continue to monitor BUN and creatinine. Daily intake and output. (3) Hypernatremia: Code(s): E87.0 - Hyperosmolality and hypernatremia Status: Acute Assessment and Plan: Related to TF and increased insensible losses. Benson 78 but could be higher if she had normal renal function. Advanced water flushes Na level down to 151 Continue to monitor (4) AMS (altered mental status): Code(s): R41.82 - Altered mental status, unspecified Status: Acute Assessment and Plan: Patient brought to the ED for alteed mental status. Probably metabolic encephalopathy related to above Continue current treatment as above Monitor for signs of improvement (5) Quadriplegia: Code(s): G82.50 - Quadriplegia, unspecified Status: Acute Assessment and Plan: Related to brain tumor and surgery Round the clock turning schedule Has a decubitus present on admission. Wound care to see tomorrow Routine skin care (6) Megaloblastic anemia: Code(s): D53.1 - Other megaloblastic anemias, not elsewhere classified Status: Acute Assessment and Plan: Hgb 6.8 on admission. No baseline Hgb to compare but family states patient had an extensive workup and related to BM depression No evidence of acute blood loss CT Ch/A/P showing no etiology of blood loss. Stool guaiac negative. Not on anticoagulation. No anemia evaluation performed prior to transfusion but Iron studies consistent with anemia of chronic disease. B12/folate normal. She was transfused on admission 2Units PRBC. hgb climbed to 7-8 range Monitor HH (7) Dysphagia: Code(s): R13.10 - Dysphagia, unspecified Status: Acute Assessment and Plan: PEG tube in place. Order enzymatic treatment Continue tube feedings (8) Hyperkalemia: Code(s): E87.5 - Hyperkalemia Status: Acute Assessment and Plan: Potassium mildly elevated at 5.4 felt related to the CONCEPCION. Cortisol level elevated at 36 and TSH elevated at 6.9. Potassium normal now Monitor. (9) Brain tumor: Code(s): D49.6 - Neoplasm of unspecified behavior of brain Status: Acute Assessment and Plan: Status post resection Plan DVT Prophylaxis - SCDs Code status - full Subjective Date/time seen: 09/27/23 10:47 Interval history: 53yo female with hx of brain tumor s/p resection, ventriculoperitoneal shunt, tracheostomy, dysphagia with GTube and quadriplegia sent in from the [facility] for altered mental status. Patient has eyes open but poorly responsive. Family in the room and they were updated about plan of care. Family states the last Cr prior to discharge was 1.13. 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
--- NOTE | 2023-09-27 11:21 | PC.NURSE ---
unable to aspirate on Jtube, attempted flush, gave resistance, finally was able to flush,then give meds through tube. after meds, unable to flush again. myself and 2 other nurses attempted to flush, we changed to earlene valve, still unable to flush. made Dr Monreal aware, he ordered to have enzymes put in tube to see if that will help. We are unable to push any water into tube. Will attempt enzymes.
[2023-09-27] MEDS: ACETAMINOPHEN 325 MG TABLET 650 MG FEED TUBE (17:38)
[2023-09-27 23:26] LABS: Glucose Point of Care 110 mg/dl (65-105)
[2023-09-28] VITALS (16 sets, daily range): BP systolic 107–121; BP diastolic 56–73; PULSE 77–103; RESP 14–24; TEMP 36.4–37.8; O2SAT 94–100
[2023-09-28] MEDS: SENNOSIDES 8.8 MG/5 ML SYRUP FEED TUBE ×2 (00:19→21:10)
[2023-09-28] MEDS: SOD HYPOCHLORITE 1/4 STRENGTH 473 ML 1 APPLIC TOPICAL ×3 (00:21→21:10)
[2023-09-28] MEDS: ALBUTEROL SULFATE NEB 2.5 MG/3 ML INH INHALATION ×4 (02:54→19:18)
[2023-09-28] MEDS: IPRATROPIUM BR 0.02% INH SOLN 0.5 MG/2.5 ML VIAL INHALATION ×4 (02:54→19:17)
[2023-09-28 05:49] LABS: Glucose Point of Care 113 mg/dl (65-105)
[2023-09-28] MEDS: DORNASE ALFA INH SOLN 1 MG/ML 2.5 ML AMP 2.5 MG INHALATION ×2 (08:19→19:18)
[2023-09-28] MEDS: FAMOTIDINE 20 MG TABLET FEED TUBE (08:59)
[2023-09-28] MEDS: ASCORBIC ACID 500 MG TABLET FEED TUBE (08:59)
[2023-09-28] MEDS: DEXTROSE 5%/0.45% SOD CHL 1,000 ML 50 ML IV CONT ×2 (09:00→14:34)
[2023-09-28] MEDS: THIAMINE HCL 100 MG TABLET FEED TUBE (09:06)
[2023-09-28] MEDS: polyethylene glycoL 3350 17 GM POWD.PACK FEED TUBE (09:06)
[2023-09-28 09:36] LABS: Basophils Percent Auto 0.1 % (0.2-1.2); Eosinophils Absolute Auto 0.4 K/mm3 (0-0.3); Eosinophils Percent Auto 5.4 % (0-4.4); Hematocrit 27.1 % (37.0-47.0); Hemoglobin 7.8 g/dL (12.0-15.0); Immature Granulocyte Absolute 0.07 K/mm3 (0.00-0.031); Lymphocytes Absolute Auto 1.39 K/mm3 (0.9-3.2); Lymphocytes Percent Auto 19.4 % (18.3-44.2); Mean Corpuscular HGB Conc 28.8 g/dl (32-36); Mean Corpuscular Hemoglobin 30.1 pg (26-34); Mean Corpuscular Volume 104.6 fl (80-100); Mean Platelet Volume 11.8 fl (7.4-10.4); Monocytes Absolute Auto 0.4 K/mm3 (0.1-0.6); Monocytes Percent Auto 5.7 % (2.6-8.5); Neutrophils Absolute Auto 4.9 K/mm3 (1.3-6.7); Neutrophils Percent Auto 68.4 % (45.5-73.1); Platelet Count Result 212 k/mm3 (150-375); Red Blood Count 2.59 M/mm3 (4.2-5.4); Red Cell Distribution Width 15.9 % (11.5-14.5); White Blood Count 7.2 K/mm3 (4.5-10.0)
[2023-09-28 09:48] LABS: Alanine Aminotransferase 17 U/L (6-35); Albumin Level 2.9 g/dL (3.5-5.1); Alkaline Phosphatase 75 U/L (38-126); Anion Gap 11 mmol/L (8-16); Aspartate Amino Transferase 19 U/L (14-36); Bilirubin,Total 0.4 mg/dL (0.2-1.3); Blood Urea Nitrogen 60 mg/dL (7-17); Calcium 8.5 mg/dL (8.4-10.2); Carbon Dioxide 20 mmol/L (22-30); Chloride 115 mmol/L (98-107); Estimated CRCL calculation 39 ml/min; Estimated Glomerular Filt Rate 34; Glucose 120 mg/dL (65-110); Magnesium 2.2 mg/dL (1.6-2.3); Potassium 4.8 mmol/L (3.4-5.0); Sodium 146 mmol/L (137-145)
[2023-09-28 09:50] LABS: Albumin Level 2.9 g/dL (3.5-5.1); Anion Gap 10 mmol/L (8-16); Blood Urea Nitrogen 62 mg/dL (7-17); Calcium 8.5 mg/dL (8.4-10.2); Carbon Dioxide 20 mmol/L (22-30); Chloride 115 mmol/L (98-107); Estimated CRCL calculation 39 ml/min; Estimated Glomerular Filt Rate 34; Glucose 121 mg/dL (65-110); Phosphorus 5.5 mg/dL (2.5-4.5); Potassium 4.8 mmol/L (3.4-5.0); Sodium 145 mmol/L (137-145)
--- NOTE | 2023-09-28 10:22 | PCNFU ---
Nutrition Follow-Up Complete: Altered Nutrition Laboratory Values as related to hypernatremia as evidenced by Na 154. Goal:Na to correct WNL Pt is progressing towards goal. Continue with same goal. Pt current nutrition is Tube feeding: Jevity 1.2 @ 75ml/hr providing 1980 kcals/92 gms protein/1332 ml water. 100ml flush q 4 hrs. Nutrition recommendation: Continue with current plan of care. Consider increasing flushes to 180ml q 4 hrs. Last recorded weight is 88 kg. Bowel Motility: +BM 09/27 Labs Reviewed: Hgb:7.9, HCT:27.8, alb:2.8, Na:151, GFR:34, BUN:68, Cr:1.6 Meds Noted: Vitamin B 1, senokot, miralax Skin: no skin issues noted Additional Notes: Pt continues on same tube feeding. Tolerating well. Noted Na improved to 151 but still high. Consider increasing flushes to 180ml to better meet fluid needs and bring Na down. Will continue to monitor weight, labs, skin, tube feeding, meds every Wednesday and Wednesday.
[2023-09-28] MEDS: amLODIPine BESYLATE 5 MG TABLET FEED TUBE (10:29)
--- NOTE | 2023-09-28 11:11 | PC.NURSE ---
put in consult for wound RN to see coccyx wound, called and no answer
[2023-09-28 12:08] LABS: Glucose Point of Care 122 mg/dl (65-105)
--- NOTE | 2023-09-28 13:06 | PM.IMPN ---
Progress Note: A&P Assessment and Plan (1) CONCEPCION (acute kidney injury): Code(s): N17.9 - Acute kidney failure, unspecified Status: Acute Assessment and Plan: BUN 103 and Cr 2.9 on admission. Per family, baseline Cr 1.13 Neville has been replaced and draining well CT scan showing bilateral hydronephrosis and moderate diffuse bladder wall thickening c/w cystitis UA concerning for possible infection. Prot/Cr ratio 25g (and 8gm on repeat). TCK 73. Nephrology consulted and appreciate their input. Possibly pre-renal although has possibly ureteral obstruction from bladder wall thickening. Increased free water flushes and on IVF Renal US showing no stones, masses or hydronephrosis Was Neville obstructed? UCx growing Klebsiella 50-100K. Repeat renal function values better. Continue to monitor BUN and creatinine. Daily intake and output. Start Rocephin and adjust coverage when sensitivities are available. (2) Hypernatremia: Code(s): E87.0 - Hyperosmolality and hypernatremia Status: Acute Assessment and Plan: Related to TF and increased insensible losses. Benson 78 but could be higher if she had normal renal function. Advanced water flushes Na normal now at 145 Continue to monitor (3) Respiratory failure with hypoxia: Code(s): J96.91 - Respiratory failure, unspecified with hypoxia Status: Acute Assessment and Plan: Patient with chronic respiratory failure requiring trach. She normally on 5L O2 via trach collar. CXR showing bibasilar infiltrates and/or atelectasis Trach changed out here Routine trach care with suctioning as needed. (4) AMS (altered mental status): Code(s): R41.82 - Altered mental status, unspecified Status: Acute Assessment and Plan: Patient brought to the ED for alteed mental status. Probably metabolic encephalopathy related to above Continue current treatment as above Monitor for signs of improvement (5) Decubital ulcer: Code(s): L89.90 - Pressure ulcer of unspecified site, unspecified stage Status: Acute Assessment and Plan: Patient with decubitus ulcer present on admission. Discussed with wound care team. Strong odor and 80% necrotic. CT pelvis 09/25 showing no evidence of a deeper wound (6) Quadriplegia: Code(s): G82.50 - Quadriplegia, unspecified Status: Acute Assessment and Plan: Related to brain tumor and surgery Round the clock turning schedule Has a decubitus present on admission. Routine skin care As above (7) Megaloblastic anemia: Code(s): D53.1 - Other megaloblastic anemias, not elsewhere classified Status: Acute Assessment and Plan: Hgb 6.8 on admission. No baseline Hgb to compare but family states patient had an extensive workup and related to BM depression No evidence of acute blood loss CT Ch/A/P showing no etiology of blood loss. Stool guaiac negative. Not on anticoagulation. No anemia evaluation performed prior to transfusion but Iron studies consistent with anemia of chronic disease. B12/folate normal. She was transfused on admission 2Units PRBC. hgb climbed to 7-8 range Monitor HH (8) Dysphagia: Code(s): R13.10 - Dysphagia, unspecified Status: Acute Assessment and Plan: PEG tube in place. Order enzymatic treatment to keep tube patent Continue tube feedings (9) Hyperkalemia: Code(s): E87.5 - Hyperkalemia Status: Acute Assessment and Plan: Potassium mildly elevated at 5.4 felt related to the CONCEPCION. Cortisol level elevated at 36 and TSH elevated at 6.9. Potassium normal now Monitor. (10) Brain tumor: Code(s): D49.6 - Neoplasm of unspecified behavior of brain Status: Acute Assessment and Plan: Status post resection Family wants patient to go to another facility PT/OT ordered parts coordinator making arrangements. Plan DVT Prophylaxis - SCDs, add love
[2023-09-28] MEDS: ENOXAPARIN 40 MG/0.4 ML SYRINGE SUB-Q (14:35)
--- NOTE | 2023-09-28 15:30 | PM.PNNEP ---
Progress Note: A&P Assessment and Plan (1) CONCEPCION (acute kidney injury): Code(s): N17.9 - Acute kidney failure, unspecified Status: Acute Assessment and Plan: the patient has acute kidney injury. She had this before and she even needed dialysis. That was a result of sepsis however. Her creatinine got down to about 1.1 according to the . That was the value on discharge from the [facility]. Urine electrolytes are non pre renal. Urine has lots of protein. CK is normal Renal ultrasound not read yet but the images look like she has no hydro and good size kidneys with nice thick cortex. the creatinine is elevated. probably dehydrated. the creatinine seems to be dropping slowly. Today is 1.6 again. Will continue hypotonic IV fluids. (2) Hypernatremia: Code(s): E87.0 - Hyperosmolality and hypernatremia Status: Acute Assessment and Plan: The patient's sodium level is high. She is free water depleted. She has increased insensible loss because of her tracheostomy. She is getting tube feeding flushes plus hypotonic IV fluids. Sodium level continues to improve. Will continue combination of hypotonic fluids plus the tube feeding flushes. Once the sodium is at the upper limits of normal. (3) AMS (altered mental status): Code(s): R41.82 - Altered mental status, unspecified Status: Acute Assessment and Plan: Most likely due to renal insufficiency plus the hypernatremia. (4) Anemia: Code(s): D64.9 - Anemia, unspecified Status: Acute Assessment and Plan: She received some blood Wednesday Hemoglobin 7.8. This is stable. TSAT 14. Ferritin above 900. B12 and folate okay. (5) Hyperkalemia: Code(s): E87.5 - Hyperkalemia Status: Acute Assessment and Plan: Potassium is down to 4.5 (6) Quadriplegia: Code(s): G82.50 - Quadriplegia, unspecified Status: Acute Assessment and Plan: Status post brain surgery Subjective Date/time seen: 09/28/23 15:30 Interval history: Veronica is awake. Interaction is about the same as before sister is in the room Exam Narrative: WDWN in NAD skin no rash or subcu nodules head ncat lungs A few upper airway sounds cor reg no rub no gallop abd BS+ nontender and soft ext Mild edema in the hands. Objective Data Vital Signs Vital Signs: Vital Signs - 24 hr 09/27/23 16:00 09/27/23 20:00 09/27/23 21:00 Temperature 96.6 F L 96.9 F L Pulse Rate 92 91 Respiratory Rate 18 13 16 Blood Pressure 118/64 106/69 Pulse Oximetry 100 100 98 Oxygen Delivery High Flow Therapy with Tr Oxygen Flow Rate 30 Fraction of Inspired Oxygen 47 09/27/23 21:00 09/27/23 23:32 09/27/23 21:15 Temperature 98.2 F Pulse Rate 75 87 78 Respiratory Rate 18 13 18 Blood Pressure 94/55 L Pulse Oximetry 99 Oxygen Delivery Oxygen Flow Rate Fraction of Inspired Oxygen 09/28/23 02:55 09/28/23 03:01 09/28/23 04:00 Temperature 98.2 F Pulse Rate 77 78 88 Respiratory Rate 18 18 14 Blood Pressure 109/56 L Pulse Oximetry 100 Oxygen Delivery Oxygen Flow Rate Fraction of Inspired Oxygen 09/28/23 07:49 09/28/23 08:06 09/28/23 08:12 Temperature 97.6 F Pulse Rate 85 87 Respiratory Rate 20 24 H Blood Pressure 121/73 Pulse Oximetry 100 100 Oxygen Delivery High Flow Therapy with Tr Oxygen Flow Rate 30 Fraction of Inspired Oxygen 40 09/28/23 08:19 09/28/23 08:00 09/28/23 12:00 Temperature 98.2 F Pulse Rate 89 96 Respiratory Rate 24 H 22 H Blood Pressure 116/62 Pulse Oximetry 100 99 Oxygen Delivery High Flow Therapy with Tr Oxygen Flow Rate 5 Fraction of Inspired Oxygen 09/28/23 14:37 09/28/23 14:38 09/28/23 15:03 Temperature Pulse Rate 92 102 H Respiratory Rate 24 H 24 H Blood Pressure Pulse Oximetry 97 Oxygen Delivery High Flow Therapy with Tr Ox
[2023-09-28 18:05] LABS: Glucose Point of Care 111 mg/dl (65-105)
[2023-09-28 22:01] LABS: Osmolality, Urine 422 mOsm/kg (50-1200)
[2023-09-29] VITALS (15 sets, daily range): BP systolic 118–135; BP diastolic 62–80; PULSE 91–100; RESP 20; TEMP 36.6–38; O2SAT 95–100
[2023-09-29 00:20] LABS: Glucose Point of Care 97 mg/dl (65-105)
[2023-09-29] MEDS: ACETAMINOPHEN 325 MG TABLET 650 MG FEED TUBE (00:26)
[2023-09-29] MEDS: ALBUTEROL SULFATE NEB 2.5 MG/3 ML INH INHALATION ×3 (02:19→13:56)
[2023-09-29] MEDS: IPRATROPIUM BR 0.02% INH SOLN 0.5 MG/2.5 ML VIAL INHALATION ×3 (02:19→13:57)
[2023-09-29 06:24] LABS: Hematocrit 25.9 % (37.0-47.0); Hemoglobin 7.5 g/dL (12.0-15.0); Mean Corpuscular Hemoglobin 29.9 pg (26-34); Mean Corpuscular Volume 103.2 fl (80-100); Mean Platelet Volume 12.2 fl (7.4-10.4); Platelet Count Result 222 k/mm3 (150-375); Red Blood Count 2.51 M/mm3 (4.2-5.4); Red Cell Distribution Width 15.8 % (11.5-14.5); White Blood Count 6.4 K/mm3 (4.5-10.0)
[2023-09-29 06:34] LABS: Albumin Level 2.8 g/dL (3.5-5.1); Anion Gap 8 mmol/L (8-16); Blood Urea Nitrogen 57 mg/dL (7-17); Calcium 8.3 mg/dL (8.4-10.2); Carbon Dioxide 21 mmol/L (22-30); Chloride 114 mmol/L (98-107); Estimated CRCL calculation 41 ml/min; Estimated Glomerular Filt Rate 36; Glucose 107 mg/dL (65-110); Phosphorus 5.5 mg/dL (2.5-4.5); Potassium 4.6 mmol/L (3.4-5.0); Sodium 143 mmol/L (137-145)
[2023-09-29] MEDS: DORNASE ALFA INH SOLN 1 MG/ML 2.5 ML AMP 2.5 MG INHALATION (09:01)
[2023-09-29] MEDS: DEXTROSE 5%/0.45% SOD CHL 1,000 ML 50 ML IV CONT (10:33)
[2023-09-29] MEDS: SOD HYPOCHLORITE 1/4 STRENGTH 473 ML 1 APPLIC TOPICAL (10:34)
[2023-09-29] MEDS: THIAMINE HCL 100 MG TABLET FEED TUBE (10:34)
[2023-09-29] MEDS: ENOXAPARIN 40 MG/0.4 ML SYRINGE SUB-Q (10:34)
[2023-09-29] MEDS: SCOPOLAMINE 1 MG PATCH 1 PATCH TRANSDERM (10:34)
[2023-09-29] MEDS: amLODIPine BESYLATE 5 MG TABLET FEED TUBE (10:34)
[2023-09-29] MEDS: ASCORBIC ACID 500 MG TABLET FEED TUBE (10:34)
[2023-09-29] MEDS: FAMOTIDINE 20 MG TABLET FEED TUBE (10:34)
[2023-09-29 12:17] LABS: Glucose Point of Care 86 mg/dl (65-105)
--- NOTE | 2023-09-29 13:46 | PM.IMPN ---
Progress Note: A&P Assessment and Plan (1) CONCEPCION (acute kidney injury): Code(s): N17.9 - Acute kidney failure, unspecified Status: Acute Assessment and Plan: BUN 103 and Cr 2.9 on admission. Per family, baseline Cr 1.13 Neville has been replaced and draining well CT scan showing bilateral hydronephrosis and moderate diffuse bladder wall thickening c/w cystitis UA concerning for possible infection. Prot/Cr ratio 25g (and 8gm on repeat). TCK 73. Nephrology consulted and appreciate their input. Possibly pre-renal although has possibly ureteral obstruction from bladder wall thickening. Increased free water flushes and on IVF Renal US showing no stones, masses or hydronephrosis Was Neville obstructed? UCx growing Klebsiella 50-100K. Repeat renal function values better. Continue to monitor BUN and creatinine. Daily intake and output. 09/29: Urine culture positive for pansensitive Klebsiella, creatinine 1.5 today, almost at baseline, continue to monitor (2) Hypernatremia: Code(s): E87.0 - Hyperosmolality and hypernatremia Status: Acute Assessment and Plan: Related to TF and increased insensible losses. Benson 78 but could be higher if she had normal renal function. Advanced water flushes Na normal now at 145 Continue to monitor Resolved (3) Respiratory failure with hypoxia: Code(s): J96.91 - Respiratory failure, unspecified with hypoxia Status: Acute Assessment and Plan: Patient with chronic respiratory failure requiring trach. She normally on 5L O2 via trach collar. CXR showing bibasilar infiltrates and/or atelectasis Trach changed out here Routine trach care with suctioning as needed. (4) AMS (altered mental status): Code(s): R41.82 - Altered mental status, unspecified Status: Acute Assessment and Plan: Patient brought to the ED for alteed mental status. Probably metabolic encephalopathy related to above Continue current treatment as above Monitor for signs of improvement (5) Decubital ulcer: Code(s): L89.90 - Pressure ulcer of unspecified site, unspecified stage Status: Acute Assessment and Plan: Patient with decubitus ulcer present on admission. Discussed with wound care team. Strong odor and 80% necrotic. CT pelvis 09/25 showing no evidence of a deeper wound (6) Quadriplegia: Code(s): G82.50 - Quadriplegia, unspecified Status: Acute Assessment and Plan: Related to brain tumor and surgery Round the clock turning schedule Has a decubitus present on admission. Routine skin care As above (7) Megaloblastic anemia: Code(s): D53.1 - Other megaloblastic anemias, not elsewhere classified Status: Acute Assessment and Plan: Hgb 6.8 on admission. No baseline Hgb to compare but family states patient had an extensive workup and related to BM depression No evidence of acute blood loss CT Ch/A/P showing no etiology of blood loss. Stool guaiac negative. Not on anticoagulation. No anemia evaluation performed prior to transfusion but Iron studies consistent with anemia of chronic disease. B12/folate normal. She was transfused on admission 2Units PRBC. hgb climbed to 7-8 range Monitor 09/29: stable, continue to monitor (8) Dysphagia: Code(s): R13.10 - Dysphagia, unspecified Status: Acute Assessment and Plan: PEG tube in place. Order enzymatic treatment to keep tube patent Continue tube feedings (9) Hyperkalemia: Code(s): E87.5 - Hyperkalemia Status: Acute Assessment and Plan: Potassium mildly elevated at 5.4 felt related to the CONCEPCION. Cortisol level elevated at 36 and TSH elevated at 6.9. Potassium normal now Monitor. (10) Brain tumor: Code(s): D49.6 - Neoplasm of unspecified behavior of brain Status: Acute Assessment and Plan: Status post resection Family wants patient to go to another fa
--- NOTE | 2023-09-29 15:13 | PC.NURSE ---
Spoke to provider regarding PEG tube being unable to flush. Attempted to call business administration instructor x2 for further recommendations.
[2023-09-29] MEDS: SODIUM BICARBONATE TAB 650 MG TABLET XX (17:16)
[2023-09-29] MEDS: LIPASE/AMYLASE/PROTEASE 12,000 UNITS CAP 1 CAP XX (17:16)
[2023-09-29 18:42] LABS: Glucose Point of Care 75 mg/dl (65-105)
--- NOTE | 2023-09-29 21:29 | PM.PNNEP ---
Progress Note: A&P Assessment and Plan (1) CONCEPCION (acute kidney injury): Code(s): N17.9 - Acute kidney failure, unspecified Status: Acute Assessment and Plan: the patient has acute kidney injury. She had this before and she even needed dialysis. That was a result of sepsis however. Her creatinine got down to about 1.1 according to the . That was the value on discharge from the LTAC. Urine electrolytes are non pre renal. Urine has lots of protein. CK is normal Renal ultrasound not read yet but the images look like she has no hydro and good size kidneys with nice thick cortex. most likely dehydrated. may have a little ATN mixed in delaying recovery. creatinine down to 1.5 Will continue hypotonic IV fluids. (2) Hypernatremia: Code(s): E87.0 - Hyperosmolality and hypernatremia Status: Acute Assessment and Plan: The patient's sodium level is normal now. Urine osmo 422 so not DI. (3) AMS (altered mental status): Code(s): R41.82 - Altered mental status, unspecified Status: Acute Assessment and Plan: Most likely due to renal insufficiency plus the hypernatremia. (4) Anemia: Code(s): D64.9 - Anemia, unspecified Status: Acute Assessment and Plan: She received some blood Wednesday Hemoglobin 7.5 This is stable. TSAT 14. Ferritin above 900. B12 and folate okay. (5) Hyperkalemia: Code(s): E87.5 - Hyperkalemia Status: Acute Assessment and Plan: resolved (6) Quadriplegia: Code(s): G82.50 - Quadriplegia, unspecified Status: Acute Assessment and Plan: Status post brain surgery Subjective Date/time seen: 09/29/23 21:29 Interval history: comfortable. family in the room. Exam Narrative: WDWN female in NAD skin no rash or subcu nodules head ncat lungs A few upper airway sounds cor reg no rub no gallop abd BS+ nontender and soft ext trace edema Objective Data Vital Signs Vital Signs: Vital Signs - 24 hr 09/29/23 00:26 09/29/23 00:00 09/29/23 02:19 Temperature 100.0 F H 100.4 F H Pulse Rate 100 92 Respiratory Rate 20 20 Blood Pressure 118/62 Pulse Oximetry 98 Oxygen Delivery Oxygen Flow Rate Fraction of Inspired Oxygen 09/29/23 02:31 09/29/23 04:00 09/29/23 09:04 Temperature 98.0 F Pulse Rate 97 91 92 Respiratory Rate 20 20 Blood Pressure 122/64 Pulse Oximetry 97 98 Oxygen Delivery High Flow Therapy with Tr Oxygen Flow Rate 30 Fraction of Inspired Oxygen 40 09/29/23 09:04 09/29/23 09:25 09/29/23 08:00 Temperature Pulse Rate 92 96 96 Respiratory Rate 20 20 20 Blood Pressure Pulse Oximetry 98 Oxygen Delivery High Flow Therapy with Tr Oxygen Flow Rate 5 Fraction of Inspired Oxygen 40 09/29/23 12:00 09/29/23 14:01 09/29/23 14:01 Temperature 97.8 F Pulse Rate 100 91 91 Respiratory Rate 20 20 Blood Pressure 120/71 Pulse Oximetry 99 98 Oxygen Delivery High Flow Therapy with Tr Oxygen Flow Rate 30 Fraction of Inspired Oxygen 38 09/29/23 14:16 09/29/23 16:00 09/29/23 13:30 Temperature 98.4 F Pulse Rate 92 99 Respiratory Rate 20 20 Blood Pressure 135/80 Pulse Oximetry 99 99 Oxygen Delivery High Flow Therapy with Tr Oxygen Flow Rate 30 Fraction of Inspired Oxygen 38 Intake/Output Intake/Output: Intake & Output 09/26/23 09/27/23 09/28/23 09/29/23 23:59 23:59 23:59 23:59 Intake Total 5173 2000 2050 1000 Output Total 2200 1950 2400 1850 Balance 2979 52 -076 -213 Meds/Results Medications: Active Medications Generic Name Dose Route Start Last Admin Trade Name Galileoq PRN Reason Stop Dose Admin Acetaminophen 650 mg 09/27/23 13:47 09/29/23 00:26 Acetaminophen 325 Mg Tablet FEED TUBE 650 mg Q6H PRN Administration Mild Pain (1-3) or Fever Albuterol 2.5 mg 09/26/23 08:00 09/29/23 13:56 Albuterol Sulfate Neb 2.5 Mg/
--- NOTE | 2023-09-29 23:03 | PCRCNOTE ---
Window of time for administration has passed. See next scheduled administration.
[2023-09-29 23:23] LABS: Glucose Point of Care 84 mg/dl (65-105)
[2023-09-30] VITALS (15 sets, daily range): BP systolic 116–132; BP diastolic 67–75; PULSE 91–102; RESP 18–22; TEMP 36.1–37; O2SAT 95–100
[2023-09-30] MEDS: SOD HYPOCHLORITE 1/4 STRENGTH 473 ML 1 APPLIC TOPICAL ×3 (03:30→20:33)
[2023-09-30] MEDS: IPRATROPIUM BR 0.02% INH SOLN 0.5 MG/2.5 ML VIAL INHALATION ×4 (03:57→20:07)
[2023-09-30] MEDS: ALBUTEROL SULFATE NEB 2.5 MG/3 ML INH INHALATION ×4 (03:57→20:07)
[2023-09-30] MEDS: DEXTROSE 5%/0.45% SOD CHL 1,000 ML 50 ML IV CONT (06:37)
[2023-09-30 07:07] LABS: Basophils Percent Auto 0.2 % (0.2-1.2); Eosinophils Absolute Auto 0.3 K/mm3 (0-0.3); Eosinophils Percent Auto 4.7 % (0-4.4); Hematocrit 27.1 % (37.0-47.0); Immature Granulocyte Percent A 1.6 % (0-0.5); Lymphocytes Absolute Auto 1.01 K/mm3 (0.9-3.2); Lymphocytes Percent Auto 16.4 % (18.3-44.2); Mean Corpuscular HGB Conc 29.5 g/dl (32-36); Mean Corpuscular Hemoglobin 30.2 pg (26-34); Mean Corpuscular Volume 102.3 fl (80-100); Monocytes Absolute Auto 0.5 K/mm3 (0.1-0.6); Monocytes Percent Auto 7.3 % (2.6-8.5); Neutrophils Absolute Auto 4.3 K/mm3 (1.3-6.7); Neutrophils Percent Auto 69.8 % (45.5-73.1); Platelet Count Result 237 k/mm3 (150-375); Red Blood Count 2.65 M/mm3 (4.2-5.4); Red Cell Distribution Width 15.4 % (11.5-14.5); White Blood Count 6.2 K/mm3 (4.5-10.0)
[2023-09-30 07:27] LABS: Alanine Aminotransferase 14 U/L (6-35); Albumin Level 2.8 g/dL (3.5-5.1); Alkaline Phosphatase 76 U/L (38-126); Anion Gap 10 mmol/L (8-16); Aspartate Amino Transferase 22 U/L (14-36); Bilirubin,Total 0.4 mg/dL (0.2-1.3); Blood Urea Nitrogen 53 mg/dL (7-17); Carbon Dioxide 23 mmol/L (22-30); Chloride 114 mmol/L (98-107); Estimated CRCL calculation 41 ml/min; Estimated Glomerular Filt Rate 36; Glucose 89 mg/dL (65-110); Phosphorus 6.3 mg/dL (2.5-4.5); Potassium 4.4 mmol/L (3.4-5.0); Sodium 147 mmol/L (137-145)
[2023-09-30] MEDS: DORNASE ALFA INH SOLN 1 MG/ML 2.5 ML AMP 2.5 MG INHALATION ×2 (07:39→20:07)
[2023-09-30] MEDS: ENOXAPARIN 40 MG/0.4 ML SYRINGE SUB-Q (09:13)
--- NOTE | 2023-09-30 10:58 | PM.PNNEP ---
Progress Note: A&P Assessment and Plan (1) CONCEPCION (acute kidney injury): Code(s): N17.9 - Acute kidney failure, unspecified Status: Acute Assessment and Plan: the patient has acute kidney injury. She had this before and she even needed dialysis. That was a result of sepsis however. Her creatinine got down to about 1.1 according to the . That was the value on discharge from the LTAC. Urine electrolytes are non pre renal. Urine has lots of protein. CK is normal Renal ultrasound not read yet but the images look like she has no hydro and good size kidneys with nice thick cortex. Creatinine is 1.5 again today. Feeding tube is clogged. Will increase IV fluid [id number] an hour. because the sodium is high will change to D5W. Once the sodium is down we can change back to half-normal see depending on whether the PEG is unclogged. (2) Hypernatremia: Code(s): E87.0 - Hyperosmolality and hypernatremia Status: Acute Assessment and Plan: The patient's sodium level is back up. This is because she S flushes. Urine osmo 422 so not DI. (3) AMS (altered mental status): Code(s): R41.82 - Altered mental status, unspecified Status: Acute Assessment and Plan: Most likely due to renal insufficiency plus the hypernatremia. (4) Anemia: Code(s): D64.9 - Anemia, unspecified Status: Acute Assessment and Plan: She received some blood Wednesday Hemoglobin 8.0 now. TSAT 14. Ferritin above 900. B12 and folate okay. Consider Epogen tomorrow if the hemoglobin is isn't coming up and the creatinine is coming down. (5) Hyperkalemia: Code(s): E87.5 - Hyperkalemia Status: Acute Assessment and Plan: resolved (6) Quadriplegia: Code(s): G82.50 - Quadriplegia, unspecified Status: Acute Assessment and Plan: Status post brain surgery Subjective Date/time seen: 09/30/23 10:58 Interval history: Veronica is about the same today. in the room Peg is still clogged Exam Narrative: WDWN female in NAD skin no rash head ncat lungs A few upper airway sounds cor reg no rub abd BS+ nontender and soft ext trace edema presacrally and in hand Objective Data Vital Signs Vital Signs: Vital Signs - 24 hr 09/29/23 12:00 09/29/23 14:01 09/29/23 14:01 Temperature 97.8 F Pulse Rate 100 91 91 Respiratory Rate 20 20 Blood Pressure 120/71 Pulse Oximetry 99 98 Oxygen Delivery High Flow Therapy with Tr Oxygen Flow Rate 30 Fraction of Inspired Oxygen 38 09/29/23 14:16 09/29/23 16:00 09/29/23 13:30 Temperature 98.4 F Pulse Rate 92 99 Respiratory Rate 20 20 Blood Pressure 135/80 Pulse Oximetry 99 99 Oxygen Delivery High Flow Therapy with Tr Oxygen Flow Rate 30 Fraction of Inspired Oxygen 38 09/29/23 20:00 09/30/23 00:00 09/30/23 03:58 Temperature 98.1 F 98.6 F Pulse Rate 99 102 H 95 Respiratory Rate 20 18 20 Blood Pressure 125/76 120/67 Pulse Oximetry 100 95 Oxygen Delivery Oxygen Flow Rate Fraction of Inspired Oxygen 09/30/23 04:17 09/29/23 23:45 09/30/23 04:00 Temperature 97.8 F Pulse Rate 91 95 101 H Respiratory Rate 20 18 Blood Pressure 121/69 Pulse Oximetry 95 98 Oxygen Delivery High Flow Therapy with Tr Oxygen Flow Rate 30 Fraction of Inspired Oxygen 40 09/30/23 07:28 09/30/23 07:31 09/30/23 07:56 Temperature Pulse Rate 95 98 Respiratory Rate 20 20 Blood Pressure Pulse Oximetry 100 Oxygen Delivery High Flow Therapy with Tr Oxygen Flow Rate 30 Fraction of Inspired Oxygen 39 09/30/23 08:00 09/30/23 08:00 Temperature 97.3 F L Pulse Rate 99 Respiratory Rate 20 Blood Pressure 132/69 Pulse Oximetry 100 100 Oxygen Delivery High Flow Therapy with Tr Oxygen Flow Rate 30 Fraction of Inspired Oxygen 40 Intake/Output Intake/Output: Intake & Output 09/27/23 09/28/2309/04
[2023-09-30] MEDS: DEXTROSE 5% 1,000 ML 1,000 ML 100 ML IV CONT ×2 (11:16→20:33)
[2023-09-30 12:27] LABS: Glucose Point of Care 96 mg/dl (65-105)
--- NOTE | 2023-09-30 14:05 | PM.IMPN ---
Progress Note: A&P Assessment and Plan (1) CONCEPCION (acute kidney injury): Code(s): N17.9 - Acute kidney failure, unspecified Status: Acute Assessment and Plan: BUN 103 and Cr 2.9 on admission. Per family, baseline Cr 1.13 Neville has been replaced and draining well CT scan showing bilateral hydronephrosis and moderate diffuse bladder wall thickening c/w cystitis UA concerning for possible infection. Prot/Cr ratio 25g (and 8gm on repeat). TCK 73. Nephrology consulted and appreciate their input. Possibly pre-renal although has possibly ureteral obstruction from bladder wall thickening. Increased free water flushes and on IVF Renal US showing no stones, masses or hydronephrosis Was Neville obstructed? UCx growing Klebsiella 50-100K. Repeat renal function values better. Continue to monitor BUN and creatinine. Daily intake and output. 09/29: Urine culture positive for pansensitive Klebsiella, creatinine 1.5 today, almost at baseline, continue to monitor 09/30: Cont rocephin (2) Hypernatremia: Code(s): E87.0 - Hyperosmolality and hypernatremia Status: Acute Assessment and Plan: Related to TF and increased insensible losses. Benson 78 but could be higher if she had normal renal function. Advanced water flushes Na normal now at 145 Continue to monitor Resolved (3) Respiratory failure with hypoxia: Code(s): J96.91 - Respiratory failure, unspecified with hypoxia Status: Acute Assessment and Plan: Patient with chronic respiratory failure requiring trach. She normally on 5L O2 via trach collar. CXR showing bibasilar infiltrates and/or atelectasis Trach changed out here Routine trach care with suctioning as needed. (4) AMS (altered mental status): Code(s): R41.82 - Altered mental status, unspecified Status: Acute Assessment and Plan: Patient brought to the ED for alteed mental status. Probably metabolic encephalopathy related to above Continue current treatment as above Monitor for signs of improvement (5) Decubital ulcer: Code(s): L89.90 - Pressure ulcer of unspecified site, unspecified stage Status: Acute Assessment and Plan: Patient with decubitus ulcer present on admission. Discussed with wound care team. Strong odor and 80% necrotic. CT pelvis 09/25 showing no evidence of a deeper wound (6) Quadriplegia: Code(s): G82.50 - Quadriplegia, unspecified Status: Acute Assessment and Plan: Related to brain tumor and surgery Round the clock turning schedule Has a decubitus present on admission. Routine skin care As above (7) Megaloblastic anemia: Code(s): D53.1 - Other megaloblastic anemias, not elsewhere classified Status: Acute Assessment and Plan: Hgb 6.8 on admission. No baseline Hgb to compare but family states patient had an extensive workup and related to BM depression No evidence of acute blood loss CT Ch/A/P showing no etiology of blood loss. Stool guaiac negative. Not on anticoagulation. No anemia evaluation performed prior to transfusion but Iron studies consistent with anemia of chronic disease. B12/folate normal. She was transfused on admission 2Units PRBC. hgb climbed to 7-8 range Monitor HH 09/29: stable, continue to monitor (8) Dysphagia: Code(s): R13.10 - Dysphagia, unspecified Status: Acute Assessment and Plan: PEG tube in place. Order enzymatic treatment to keep tube patent Continue tube feedings 09/30: j-tube clogged, surg consult pending (9) Hyperkalemia: Code(s): E87.5 - Hyperkalemia Status: Acute Assessment and Plan: Potassium mildly elevated at 5.4 felt related to the CONCEPCION. Cortisol level elevated at 36 and TSH elevated at 6.9. Potassium normal now Monitor. (10) Brain tumor: Code(s): D49.6 - Neoplasm of unspecified behavior of brain Status: Acute Assessment and Rell
[2023-09-30] MEDS: fentaNYL CITRATE INJ (*CRX) 100 MCG/2 ML VIAL 12.5 MCG IV PUSH (14:26)
[2023-09-30 16:07] LABS: Anion Gap 8 mmol/L (8-16); Blood Urea Nitrogen 50 mg/dL (7-17); Calcium 8.9 mg/dL (8.4-10.2); Carbon Dioxide 22 mmol/L (22-30); Chloride 114 mmol/L (98-107); Estimated CRCL calculation 44 ml/min; Estimated Glomerular Filt Rate 39; Glucose 104 mg/dL (65-110); Potassium 4.3 mmol/L (3.4-5.0); Sodium 144 mmol/L (137-145)
[2023-09-30 18:22] LABS: Glucose Point of Care 86 mg/dl (65-105)
[2023-10-01] VITALS (15 sets, daily range): BP systolic 109–140; BP diastolic 58–76; PULSE 83–98; RESP 18–22; TEMP 35.8–36.7; O2SAT 97–100; BMI 11.0
[2023-10-01 00:53] LABS: Glucose Point of Care 84 mg/dl (65-105)
[2023-10-01] MEDS: ALBUTEROL SULFATE NEB 2.5 MG/3 ML INH INHALATION ×4 (02:26→22:20)
[2023-10-01] MEDS: IPRATROPIUM BR 0.02% INH SOLN 0.5 MG/2.5 ML VIAL INHALATION ×4 (02:26→22:20)
[2023-10-01 06:58] LABS: Basophils Percent Auto 0.2 % (0.2-1.2); Eosinophils Absolute Auto 0.2 K/mm3 (0-0.3); Hematocrit 24.8 % (37.0-47.0); Hemoglobin 7.4 g/dL (12.0-15.0); Immature Granulocyte Absolute 0.07 K/mm3 (0.00-0.031); Immature Granulocyte Percent A 1.3 % (0-0.5); Lymphocytes Absolute Auto 1.01 K/mm3 (0.9-3.2); Mean Corpuscular HGB Conc 29.8 g/dl (32-36); Mean Corpuscular Hemoglobin 30.6 pg (26-34); Mean Corpuscular Volume 102.5 fl (80-100); Mean Platelet Volume 11.7 fl (7.4-10.4); Monocytes Absolute Auto 0.4 K/mm3 (0.1-0.6); Monocytes Percent Auto 6.4 % (2.6-8.5); Neutrophils Percent Auto 71.1 % (45.5-73.1); Platelet Count Result 224 k/mm3 (150-375); Red Blood Count 2.42 M/mm3 (4.2-5.4); Red Cell Distribution Width 15.4 % (11.5-14.5); White Blood Count 5.6 K/mm3 (4.5-10.0)
[2023-10-01 07:15] LABS: Alanine Aminotransferase 14 U/L (6-35); Albumin Level 2.7 g/dL (3.5-5.1); Alkaline Phosphatase 73 U/L (38-126); Anion Gap 9 mmol/L (8-16); Aspartate Amino Transferase 23 U/L (14-36); Bilirubin,Total 0.3 mg/dL (0.2-1.3); Blood Urea Nitrogen 45 mg/dL (7-17); Calcium 8.9 mg/dL (8.4-10.2); Carbon Dioxide 23 mmol/L (22-30); Chloride 111 mmol/L (98-107); Estimated CRCL calculation 41 ml/min; Estimated Glomerular Filt Rate 36; Glucose 99 mg/dL (65-110); Phosphorus 6.6 mg/dL (2.5-4.5); Potassium 4.4 mmol/L (3.4-5.0); Sodium 143 mmol/L (137-145)
--- NOTE | 2023-10-01 08:26 | P.PNIM_ITS ---
Progress Note: A&P Assessment and Plan (1) CONCEPCION (acute kidney injury): Code(s): N17.9 - Acute kidney failure, unspecified Status: Acute Assessment and Plan: BUN 103 and Cr 2.9 on admission. Per family, baseline Cr 1.13 Neville has been replaced and draining well CT scan showing bilateral hydronephrosis and moderate diffuse bladder wall thickening c/w cystitis UA concerning for possible infection. Prot/Cr ratio 25g (and 8gm on repeat). TCK 73. Nephrology consulted and appreciate their input. Possibly pre-renal although has possibly ureteral obstruction from bladder wall thickening. Increased free water flushes and on IVF Renal US showing no stones, masses or hydronephrosis Was Neville obstructed? UCx growing Klebsiella 50-100K. Repeat renal function values better. Continue to monitor BUN and creatinine. Daily intake and output. 09/29: Urine culture positive for pansensitive Klebsiella, creatinine 1.5 today, almost at baseline, continue to monitor 09/30: Cont rocephin 10/01: D/c rocephin and monitor off abx, appears resolved (2) Hypernatremia: Code(s): E87.0 - Hyperosmolality and hypernatremia Status: Acute Assessment and Plan: Related to TF and increased insensible losses. Benson 78 but could be higher if she had normal renal function. Advanced water flushes Na normal now at 145 Continue to monitor Resolved (3) Respiratory failure with hypoxia: Code(s): J96.91 - Respiratory failure, unspecified with hypoxia Status: Acute Assessment and Plan: Patient with chronic respiratory failure requiring trach. She normally on 5L O2 via trach collar. CXR showing bibasilar infiltrates and/or atelectasis Trach changed out here Routine trach care with suctioning as needed. (4) AMS (altered mental status): Code(s): R41.82 - Altered mental status, unspecified Status: Acute Assessment and Plan: Patient brought to the ED for alteed mental status. Probably metabolic encephalopathy related to above Continue current treatment as above Monitor for signs of improvement (5) Decubital ulcer: Code(s): L89.90 - Pressure ulcer of unspecified site, unspecified stage Status: Acute Assessment and Plan: Patient with decubitus ulcer present on admission. Discussed with wound care tea m. Strong odor and 80% necrotic. CT pelvis 09/25 showing no evidence of a deeper wound Gen surgery consult placed for debridement eval (6) Quadriplegia: Code(s): G82.50 - Quadriplegia, unspecified Status: Acute Assessment and Plan: Related to brain tumor and surgery Round the clock turning schedule Has a decubitus present on admission. Routine skin care As above (7) Megaloblastic anemia: Code(s): D53.1 - Other megaloblastic anemias, not elsewhere classified Status: Acute Assessment and Plan: Hgb 6.8 on admission. No baseline Hgb to compare but family states patient had an extensive workup and related to BM depression No evidence of acute blood loss CT Ch/A/P showing no etiology of blood loss. Stool guaiac negative. Not on anticoagulation. No anemia evaluation performed prior to transfusion but Iron studies consistent with anemia of chronic disease. B12/folate normal. She was transfused on admission 2Units PRBC. hgb climbed to 7-8 range Monitor 09/29: stable, continue to monitor (8) Dysphagia: Code(s): R13.10 - Dysphagia, unspecified Status: Acute Assess
[2023-10-01] MEDS: DEXTROSE 5% 1,000 ML 1,000 ML 100 ML IV CONT (08:38)
[2023-10-01] MEDS: ENOXAPARIN 40 MG/0.4 ML SYRINGE SUB-Q (08:40)
[2023-10-01] MEDS: THIAMINE HCL 100 MG TABLET FEED TUBE (08:47)
[2023-10-01] MEDS: ASCORBIC ACID 500 MG TABLET FEED TUBE (08:47)
[2023-10-01] MEDS: amLODIPine BESYLATE 5 MG TABLET FEED TUBE (08:47)
[2023-10-01] MEDS: FAMOTIDINE 20 MG TABLET FEED TUBE (08:48)
[2023-10-01] MEDS: DORNASE ALFA INH SOLN 1 MG/ML 2.5 ML AMP 2.5 MG INHALATION ×2 (09:40→22:30)
[2023-10-01 10:03] LABS: Hypochromasia 1+ (NORMAL); Large Platelets Present; Microcytosis 1+ (NORMAL); Platelet Estimate Adequate (Adequate); Schistocytes None Seen (NORMAL)
--- NOTE | 2023-10-01 12:28 | PCNFU ---
Nutrition Follow-Up Complete: Altered Nutrition Laboratory Values as related to hypernatremia as evidenced by Na 154. Goal: Na to correct WNL - Resolved. New goal: Tolerate tube feeding at goal rate Pt current nutrition is Jevity 1.2 @ 75 ml/h: 1980 kcal, 92 g protein, 1332 ml free water. Meeting estimated nutrition needs ~100% Nutrition recommendation: Continue with current tube feeding and orders. Plan to address wounds with Simón flush at next follow up; currently tube feeding has been on hold and just started up Last recorded weight is 88 kg. Bowel Motility: +1 BM 10/01/23 Labs Reviewed: Hgb 7.4, Hct 24.8, Alb 2.7, BUN 45, Cre 1.5 Meds Noted: Senokot, miralax Skin:Unstageable to R buttock Additional Notes: Tube feeding has been on hold as tube was clogged. tube feeding not charted yet but RN verbally confirms that Jevity 1,2 is now running at 75 ml/h with flushes 100 ml q 4 hours. Will continue to monitor weight, labs, skin, tube feeding, meds every Wednesday and Wednesday.
[2023-10-01] MEDS: SOD HYPOCHLORITE 1/4 STRENGTH 473 ML 1 APPLIC TOPICAL ×2 (15:30→20:39)
--- NOTE | 2023-10-01 16:43 | P.PNNP_ITS ---
Progress Note: A&P Assessment and Plan (1) CONCEPCION (acute kidney injury): Code(s): N17.9 - Acute kidney failure, unspecified Status: Acute Assessment and Plan: * baseline creatinine ~ 1.1mg/dl (when last discharged from LT[facility]) * evaluation to date: * urine electrolytes are non pre renal * urine has lots of protein * CK is normal * renal ultrasound unremarkable * CT on admission with bilateral hydronephrosis * etiology likely volume depletion +/- solano obstruction * follow repeat labs and UOP (2) Hypernatremia: Code(s): E87.0 - Hyperosmolality and hypernatremia Status: Acute Assessment and Plan: * resolving * due to free water deficit and normal saline IVFs * better s/p D5W IVFs * restart free water flushes to compensate (3) AMS (altered mental status): Code(s): R41.82 - Altered mental status, unspecified Status: Acute Assessment and Plan: * resolved * presumably to CONCEPCION and hypernatremia * follow mentation (4) Anemia: Code(s): D64.9 - Anemia, unspecified Status: Acute Assessment and Plan: * possibly due to CONCEPCION and acute illness * iron studies noted * dose with Epogen today * follow H/H (5) Hyperkalemia: Code(s): E87.5 - Hyperkalemia Status: Acute Assessment and Plan: * resolved * due to #1 Will continue to follow. Subjective Date/time seen: 10/01/23 16:43 Interval history: Follow-up for acute kidney injury/acute renal failure. Per nursing and family members earlier today, patient's mental status is back to baseline; renal function continues to improve with current interventions/therapy; no apparent distress noted. Exam Narrative: General: middle aged female in NAD Heart: normal S1 and S2; no rub Lungs: clear anteriorly Abdomen: soft, nontender, nondistended, positive bowel sounds Extremities: no cyanosis or clubbing; trace edema Skin: warm and dry Objective Data Vital Signs Vital Signs: Vital Signs Temp Pulse Resp BP Pulse Ox O2 Del Method O2 Flow Rate 10/01/23 16:00 98.0 F 94 22 H 120/64 98 10/01/23 14:25 94 20 10/01/23 12:00 97.2 F L 83 20 125/62 100 10/01/23 08:00 95 20 99 High Flow Therapy with Tr 3 10/01/23 09:51 95 20 10/01/23 09:28 93 20 10/01/23 09:47 93 18 99 High Flow Therapy with Tr 30 10/01/23 08:00 97.1 F L 88 18 112/69 100 10/01/23 04:00 97.0 F L 87 18 120/76 100 10/01/23 02:32 96 22 H 10/01/23 02:31 97 High Flow Therapy with Tr 30 10/01/23 00:00 97.0 F L 86 18 109/68 100 09/30/23 20:00 96.9 F L 93 18 116/67 100 09/30/23 20:11 98 High Flow Therapy with Tr 30 09/30/23 20:11 94 20 Intake/Output Intake/Output: Intake & Output 09/28/23 09/29/23 09/30/23 10/01/23 23:59 23:59 23:59 23:59 Intake Total 2050 1050 2650 1000 Output Total 2400 1850 1750 850 Balance -350 -800 900 150 Meds/Results Medications: Active Medications Generic Name Dose Route Start Last Admin Trade Name Freq PRN Reason Stop Dose Admin Acetami
--- NOTE | 2023-10-01 16:43 | PM.PNNEP ---
Progress Note: A&P Assessment and Plan (1) CONCEPCION (acute kidney injury): Code(s): N17.9 - Acute kidney failure, unspecified Status: Acute Assessment and Plan: baseline creatinine ~ 1.1mg/dl (when last discharged from [facility]) evaluation to date: urine electrolytes are non pre renal urine has lots of protein CK is normal renal ultrasound unremarkable CT on admission with bilateral hydronephrosis etiology likely volume depletion +/- solano obstruction follow repeat labs and UOP (2) Hypernatremia: Code(s): E87.0 - Hyperosmolality and hypernatremia Status: Acute Assessment and Plan: resolving due to free water deficit and normal saline IVFs better s/p D5W IVFs restart free water flushes to compensate (3) AMS (altered mental status): Code(s): R41.82 - Altered mental status, unspecified Status: Acute Assessment and Plan: resolved presumably to CONCEPCION and hypernatremia follow mentation (4) Anemia: Code(s): D64.9 - Anemia, unspecified Status: Acute Assessment and Plan: possibly due to CONCEPCION and acute illness iron studies noted dose with Epogen today follow H/H (5) Hyperkalemia: Code(s): E87.5 - Hyperkalemia Status: Acute Assessment and Plan: resolved due to #1 Will continue to follow. Subjective Date/time seen: 10/01/23 16:43 Interval history: Follow-up for acute kidney injury/acute renal failure. Per nursing and family members earlier today, patient's mental status is back to baseline; renal function continues to improve with current interventions/therapy; no apparent distress noted. Exam Narrative: General: middle aged female in NAD Heart: normal S1 and S2; no rub Lungs: clear anteriorly Abdomen: soft, nontender, nondistended, positive bowel sounds Extremities: no cyanosis or clubbing; trace edema Skin: warm and dry Objective Data Vital Signs Vital Signs: Vital Signs Temp Pulse Resp BP Pulse Ox O2 Del Method O2 Flow Rate 10/01/23 16:00 98.0 F 94 22 H 120/64 98 10/01/23 14:25 94 20 10/01/23 12:00 97.2 F L 83 20 125/62 100 10/01/23 08:00 95 20 99 High Flow Therapy with Tr 3 10/01/23 09:51 95 20 10/01/23 09:28 93 20 10/01/23 09:47 93 18 99 High Flow Therapy with Tr 30 10/01/23 08:00 97.1 F L 88 18 112/69 100 10/01/23 04:00 97.0 F L 87 18 120/76 100 10/01/23 02:32 96 22 H 10/01/23 02:31 97 High Flow Therapy with Tr 30 10/01/23 00:00 97.0 F L 86 18 109/68 100 09/30/23 20:00 96.9 F L 93 18 116/67 100 09/30/23 20:11 98 High Flow Therapy with Tr 30 09/30/23 20:11 94 20 Intake/Output Intake/Output: Intake & Output 09/28/23 09/29/23 09/30/23 10/01/23 23:59 23:59 23:59 23:59 Intake Total 2050 1050 2650 1000 Output Total 2400 1850 1750 850 Balance -350 -800 900 150 Meds/Results Medications: Active Medications Generic Name Dose Route Start Last Admin Trade Name Freq PRN Reason Stop Dose Admin Acetaminophen 650 mg 09/27/23 13:47 09/29/23 00:26 Acetaminophen 325 Mg Tablet FEED TUBE 650 mg Q6H PRN Administration Mild Pain (1-3) or Fever Albuterol 2.5 mg 09/26/23 08:00 10/01/23 14:25 Albuterol Sulfate Neb 2.5 Mg/3 Ml Inh INHALATION 2.5 mg Q6HRT TOMA Administration Amlodipine Besylate 5 mg 09/25/23 09:00 10/01/23 08:47 Amlodipine Besylate 5 Mg Tablet FEED TUBE 10/25/23 08:59 5 mg DAILY TOMA Administration Ascorbic Acid 500 mg 09/25/23 09:00 10/01/23 08:47 Ascorbic Acid 500 Mg Tablet FEED TUBE 10/25/23 08:59 500 mg DAILY TOMA Administration Dornase Allan 2.5 mg 09/26/23 08:00 10/01/23 09:40 Dornase Allan Inh Soln 1 Mg/Ml 2.5 Ml Amp INHALATION 2.5 mg Q12HRT TOMA Administration Enoxaparin Sodium 40 mg 09/29/23 09:00 10/01/23 08:40 Enoxaparin 40 Mg/0.4 Ml Syringe SUB-Q 40 m
[2023-10-01] MEDS: EPOETIN ALFA-EPBX 10,000 UNITS/ML VIAL 10000 UNITS SUB-Q (17:50)
[2023-10-01 18:29] LABS: Glucose Point of Care 122 mg/dl (65-105)
[2023-10-01] MEDS: SENNOSIDES 8.8 MG/5 ML SYRUP FEED TUBE (20:39)
[2023-10-02] VITALS (15 sets, daily range): BP systolic 121–141; BP diastolic 65–81; PULSE 91–102; RESP 18–24; TEMP 35.7–37.2; O2SAT 95–100
[2023-10-02 00:42] LABS: Glucose Point of Care 148 mg/dl (65-105)
[2023-10-02] MEDS: ALBUTEROL SULFATE NEB 2.5 MG/3 ML INH INHALATION ×4 (03:53→21:56)
[2023-10-02] MEDS: IPRATROPIUM BR 0.02% INH SOLN 0.5 MG/2.5 ML VIAL INHALATION ×4 (03:53→21:56)
[2023-10-02 05:49] LABS: Glucose Point of Care 122 mg/dl (65-105)
[2023-10-02 06:27] LABS: Basophils Percent Auto 0.1 % (0.2-1.2); Eosinophils Absolute Auto 0.2 K/mm3 (0-0.3); Eosinophils Percent Auto 2.1 % (0-4.4); Hematocrit 25.2 % (37.0-47.0); Hemoglobin 7.9 g/dL (12.0-15.0); Immature Granulocyte Absolute 0.08 K/mm3 (0.00-0.031); Immature Granulocyte Percent A 1.1 % (0-0.5); Lymphocytes Absolute Auto 0.95 K/mm3 (0.9-3.2); Lymphocytes Percent Auto 13.3 % (18.3-44.2); Mean Corpuscular HGB Conc 31.3 g/dl (32-36); Mean Corpuscular Hemoglobin 30.6 pg (26-34); Mean Corpuscular Volume 97.7 fl (80-100); Mean Platelet Volume 11.4 fl (7.4-10.4); Monocytes Absolute Auto 0.4 K/mm3 (0.1-0.6); Monocytes Percent Auto 5.3 % (2.6-8.5); Neutrophils Absolute Auto 5.6 K/mm3 (1.3-6.7); Neutrophils Percent Auto 78.1 % (45.5-73.1); Platelet Count Result 252 k/mm3 (150-375); Red Blood Count 2.58 M/mm3 (4.2-5.4); Red Cell Distribution Width 15.3 % (11.5-14.5); White Blood Count 7.2 K/mm3 (4.5-10.0)
[2023-10-02 06:41] LABS: Alanine Aminotransferase 15 U/L (6-35); Albumin Level 2.8 g/dL (3.5-5.1); Alkaline Phosphatase 81 U/L (38-126); Anion Gap 7 mmol/L (8-16); Aspartate Amino Transferase 20 U/L (14-36); Bilirubin,Total 0.3 mg/dL (0.2-1.3); Blood Urea Nitrogen 38 mg/dL (7-17); Calcium 8.4 mg/dL (8.4-10.2); Carbon Dioxide 24 mmol/L (22-30); Chloride 107 mmol/L (98-107); Estimated CRCL calculation 51 ml/min; Estimated Glomerular Filt Rate 47; Glucose 126 mg/dL (65-110); Sodium 138 mmol/L (137-145)
[2023-10-02] MEDS: DORNASE ALFA INH SOLN 1 MG/ML 2.5 ML AMP 2.5 MG INHALATION ×2 (09:58→21:56)
[2023-10-02] MEDS: amLODIPine BESYLATE 5 MG TABLET FEED TUBE (10:13)
[2023-10-02] MEDS: ASCORBIC ACID 500 MG TABLET FEED TUBE (10:13)
[2023-10-02] MEDS: ENOXAPARIN 40 MG/0.4 ML SYRINGE SUB-Q (10:13)
[2023-10-02] MEDS: THIAMINE HCL 100 MG TABLET FEED TUBE (10:13)
[2023-10-02] MEDS: FAMOTIDINE 20 MG TABLET FEED TUBE (10:13)
[2023-10-02] MEDS: SCOPOLAMINE 1 MG PATCH 1 PATCH TRANSDERM (10:15)
--- NOTE | 2023-10-02 10:32 | PM.CNGS ---
Assessment and Plan Assessment and plan (1) Decubital ulcer: Code(s): L89.90 - Pressure ulcer of unspecified site, unspecified stage Status: Acute Assessment and Plan: Pressure offloading and turning, continue local wound care for now, will need surgical debridement and likely placement of VAC dressing, no signs or symptoms of active infection at this time (2) Quadriplegia: Code(s): G82.50 - Quadriplegia, unspecified Status: Acute Assessment and Plan: continue offloading of sacral region, skin care (3) AMS (altered mental status): Code(s): R41.82 - Altered mental status, unspecified Status: Acute Assessment and Plan: seems to be improved per family (4) Respiratory failure with hypoxia: Code(s): J96.91 - Respiratory failure, unspecified with hypoxia Status: Acute Assessment and Plan: patient with trach, continue settings per primary team History of Present Illness Consult details Consult date: 10/02/23 Reason for consult: wound care Requesting physician: Luciano Armas MD Narrative: The patient is a 53-year-old female with multiple medical issues including 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 The patient is noted to have a sacral ulcer that is chronic and has been debrided in the past. Per the patient's family, the ulcer has enlarged and worsened over the last few weeks. The patient's family reports that previously the wound had a VAC on it. Review of Systems Review of Systems: ROS unobtainable: Yes unobtainable due to medical condition and unobtainable due to mental status PMFSH Social History Social History Smoking status: Never smoker Alcohol intake: never Substance use: never Substance use type: does not use Spiritual care concerns: No Meds Home Medications and Allergies Home Medications Medication Instructions Recorded Confirmed Type Dakin's Solution 1 dose topical BID 09/24/23 09/24/23 History Jevity 1.2 Redd 75 ml feeding tube Q1H 09/24/23 09/24/23 History Miralax 17 g feeding tube Q12H PRN 09/24/23 09/24/23 History constipation. albuterol sulfate 2.5 mg/3 mL 2.5 mg inhalation Q4H PRN SOB 09/24/23 09/24/23 History (0.083 %) solution for nebulization amlodipine 5 tablet J-tube DAILY 09/24/23 09/24/23 History armodafinil 150 mg J-tube DAILY 09/24/23 09/24/23 History ascorbate calcium (vitamin C) 500 mg feeding tube DAILY 09/24/23 09/24/23 History famotidine 2.5 ml J-tube DAILY 09/24/23 09/24/23 History magnesium hydroxide 30 ml feeding tube Q24H PRN 09/24/23 09/24/23 History gastric secretions. scopolamine base 1 mg over 3 days 1 patch transdermal Q72H 09/24/23 09/24/23 History transdermal patch senna 5 ml J-tube QHS 09/24/23 09/24/23 History thiamine HCl (vitamin B1) 100 mg J-tube DAILY 09/24/23 09/24/23 History Allergies Allergy/AdvReac Type Severity Reaction Status Date / Time No Known Allergies Allergy Verified 09/24/23 12:27 Vital Signs Vital Signs - 24 hr 10/01/23 12:00 10/01/23 14:25 10/01/23 16:00 Temperature 36.2 C L 36.7 C Pulse Rate 83 94 94 Respiratory Rate 20 20 22 H Blood Pressure 125/62 120/64 Pulse Oximetry 100 98 Oxygen Delivery Oxygen Flow Rate Fraction of Inspired Oxygen 10/01/23 22:20 10/01/23 22:35 10/01/23 23:04 Temperature Pulse Rate 97 98 97 Respiratory Rate 22 H 22 H Blood Pressure Pulse Oximetry 97 Oxygen Delivery High Flow Therapy with Tr Oxygen Flow Rate 30 Fraction of Inspired Oxygen 38 10/01/23 20:00 10/02/23 00:00 10/02/23 03:53 Temperature 35.8 C L 35.8 C L Pulse Rate 95 94 92 Respiratory Rate 20 18 20 Blood Pressure 140/58 L 122/71 Pulse Oximetry 99 99 Oxygen Delivery Oxygen Flow Rate Fraction of Inspired Oxygen
--- NOTE | 2023-10-02 11:22 | P.PNNP_ITS ---
Progress Note: A&P Assessment and Plan (1) CONCEPCION (acute kidney injury): Code(s): N17.9 - Acute kidney failure, unspecified Status: Acute Assessment and Plan: * ongoing improvement noted * baseline creatinine ~ 1.1mg/dl (when last discharged from [facility]) * evaluation to date: * urine electrolytes are non pre renal * urine has lots of protein * CK is normal * renal ultrasound unremarkable * CT on admission with bilateral hydronephrosis * etiology likely volume depletion +/- solano obstruction * follow repeat labs and UOP (2) Hypernatremia: Code(s): E87.0 - Hyperosmolality and hypernatremia Status: Acute Assessment and Plan: * resolved * due to free water deficit and normal saline IVFs * better s/p D5W IVFs * restarted on free water flushes to compensate (3) AMS (altered mental status): Code(s): R41.82 - Altered mental status, unspecified Status: Acute Assessment and Plan: * resolved * presumably to CONCEPCION and hypernatremia * follow mentation (4) Anemia: Code(s): D64.9 - Anemia, unspecified Status: Acute Assessment and Plan: * possibly due to CONCEPCION and acute illness * iron studies noted * dose with Epogen x 1 yesterday * follow H/H (5) Hyperkalemia: Code(s): E87.5 - Hyperkalemia Status: Acute Assessment and Plan: * resolved * due to #1 No much else to add -- will continue to follow from a distance. Subjective Date/time seen: 10/02/23 11:22 Interval history: Follow-up for acute kidney injury/acute renal failure. Renal function/creatinine continues to improve in conjunction with good urine output; no other issues/events overnight or earlier this morning; no other concerns voiced/noted. Exam Narrative: General: middle aged female in NAD Heart: normal S1 and S2; no rub Lungs: clear anteriorly Abdomen: soft, nontender, nondistended, positive bowel sounds Extremities: no cyanosis or clubbing; trace edema Skin: warm and intact Objective Data Vital Signs Vital Signs: Vital Signs Temp Pulse Resp BP Pulse Ox O2 Del Method O2 Flow Rate 10/02/23 10:58 98 20 10/02/23 10:43 96 High Flow Therapy with Tr 30 10/02/23 08:00 97.6 F 96 20 141/81 H 100 10/02/23 10:40 95 20 10/02/23 04:00 96.2 F L 91 18 121/65 100 10/02/23 03:59 93 97 High Flow Therapy with Tr 30 10/02/23 03:53 92 20 10/02/23 00:00 96.4 F L 94 18 122/71 99 10/01/23 20:00 96.5 F L 95 20 140/58 L 99 10/01/23 23:04 97 97 High Flow Therapy with Tr 30 10/01/23 22:35 98 22 H 10/01/23 22:20 97 22 H 10/01/23 16:00 98.0 F 94 22 H 120/64 98 Intake/Output Intake/Output: Intake & Output 09/29/23 09/30/23 10/01/23 10/02/23 23:59 23:59 23:59 23:59 Intake Total 1050 2650 1050 Output Total 1850 1750 1850 1300 Balance -800 900 -800 -1300 Meds/Results Medications: Active Medications Generic Name Dose Route Start Last Admin Trade Name Freq PRN Reason Stop Dose Admin Acetaminophen 650 mg 09/27/23 13:47 09/29/23 00:26 Aceta
--- NOTE | 2023-10-02 11:22 | PM.PNNEP ---
Progress Note: A&P Assessment and Plan (1) CONCEPCION (acute kidney injury): Code(s): N17.9 - Acute kidney failure, unspecified Status: Acute Assessment and Plan: ongoing improvement noted baseline creatinine ~ 1.1mg/dl (when last discharged from [facility]) evaluation to date: urine electrolytes are non pre renal urine has lots of protein CK is normal renal ultrasound unremarkable CT on admission with bilateral hydronephrosis etiology likely volume depletion +/- solano obstruction follow repeat labs and UOP (2) Hypernatremia: Code(s): E87.0 - Hyperosmolality and hypernatremia Status: Acute Assessment and Plan: resolved due to free water deficit and normal saline IVFs better s/p D5W IVFs restarted on free water flushes to compensate (3) AMS (altered mental status): Code(s): R41.82 - Altered mental status, unspecified Status: Acute Assessment and Plan: resolved presumably to CONCEPCION and hypernatremia follow mentation (4) Anemia: Code(s): D64.9 - Anemia, unspecified Status: Acute Assessment and Plan: possibly due to CONCEPCION and acute illness iron studies noted dose with Epogen x 1 yesterday follow H/H (5) Hyperkalemia: Code(s): E87.5 - Hyperkalemia Status: Acute Assessment and Plan: resolved due to #1 No much else to add -- will continue to follow from a distance. Subjective Date/time seen: 10/02/23 11:22 Interval history: Follow-up for acute kidney injury/acute renal failure. Renal function/creatinine continues to improve in conjunction with good urine output; no other issues/events overnight or earlier this morning; no other concerns voiced/noted. Exam Narrative: General: middle aged female in NAD Heart: normal S1 and S2; no rub Lungs: clear anteriorly Abdomen: soft, nontender, nondistended, positive bowel sounds Extremities: no cyanosis or clubbing; trace edema Skin: warm and intact Objective Data Vital Signs Vital Signs: Vital Signs Temp Pulse Resp BP Pulse Ox O2 Del Method O2 Flow Rate 10/02/23 10:58 98 20 10/02/23 10:43 96 High Flow Therapy with Tr 30 10/02/23 08:00 97.6 F 96 20 141/81 H 100 10/02/23 10:40 95 20 12/30/23 04:00 96.2 F L 91 18 121/65 100 10/02/23 03:59 93 97 High Flow Therapy with Tr 30 10/02/23 03:53 92 20 10/02/23 00:00 96.4 F L 94 18 122/71 99 10/01/23 20:00 96.5 F L 95 20 140/58 L 99 10/01/23 23:04 97 97 High Flow Therapy with Tr 30 10/01/23 22:35 98 22 H 10/01/23 22:20 97 22 H 10/01/23 16:00 98.0 F 94 22 H 120/64 98 Intake/Output Intake/Output: Intake & Output 09/29/23 09/30/23 10/01/23 10/02/23 23:59 23:59 23:59 23:59 Intake Total 1050 2650 1050 Output Total 1850 1750 1850 1300 Balance -800 900 -800 -1300 Meds/Results Medications: Active Medications Generic Name Dose Route Start Last Admin Trade Name Freq PRN Reason Stop Dose Admin Acetaminophen 650 mg 09/27/23 13:47 09/29/23 00:26 Acetaminophen 325 Mg Tablet FEED TUBE 650 mg Q6H PRN Administration Mild Pain (1-3) or Fever Albuterol 2.5 mg 09/26/23 08:00 10/02/23 13:10 Albuterol Sulfate Neb 2.5 Mg/3 Ml Inh INHALATION 2.5 mg Q6HRT TOMA Administration Amlodipine Besylate 5 mg 09/25/23 09:00 10/02/23 10:13 Amlodipine Besylate 5 Mg Tablet FEED TUBE 10/25/23 08:59 5 mg DAILY TOMA Administration Ascorbic Acid 500 mg 09/25/23 09:00 10/02/23 10:13 Ascorbic Acid 500 Mg Tablet FEED TUBE 10/25/23 08:59 500 mg DAILY TOMA Administration Dornase Allan 2.5 mg 09/26/23 08:00 10/02/23 09:58 Dornase Allan Inh Soln 1 Mg/Ml 2.5 Ml Amp INHALATION 2.5 mg Q12HRT TOMA Administration Enoxaparin Sodium 40 mg 09/29/23 09:00 10/02/23 10:13 Enoxaparin 40 Mg/0.4 Ml Syringe SUB-Q 40 mg DAILY TOMA Administration Famotidine
--- NOTE | 2023-10-02 12:07 | PM.IMPN ---
Progress Note: A&P Assessment and Plan (1) CONCEPCION (acute kidney injury): Code(s): N17.9 - Acute kidney failure, unspecified Status: Acute Assessment and Plan: BUN 103 and Cr 2.9 on admission. Per family, baseline Cr 1.13 Neville has been replaced and draining well CT scan showing bilateral hydronephrosis and moderate diffuse bladder wall thickening c/w cystitis UA concerning for possible infection. Prot/Cr ratio 25g (and 8gm on repeat). TCK 73. Nephrology consulted and appreciate their input. Possibly pre-renal although has possibly ureteral obstruction from bladder wall thickening. Increased free water flushes and on IVF Renal US showing no stones, masses or hydronephrosis Was Neville obstructed? UCx growing Klebsiella 50-100K. Repeat renal function values better. Continue to monitor BUN and creatinine. Daily intake and output. 09/29: Urine culture positive for pansensitive Klebsiella, creatinine 1.5 today, almost at baseline, continue to monitor 09/30: Cont rocephin 10/01: D/c rocephin and monitor off abx, appears resolved 10/02: stable off abx (2) Hypernatremia: Code(s): E87.0 - Hyperosmolality and hypernatremia Status: Acute Assessment and Plan: Related to TF and increased insensible losses. Benson 78 but could be higher if she had normal renal function. Advanced water flushes Na normal now at 145 Continue to monitor Resolved (3) Respiratory failure with hypoxia: Code(s): J96.91 - Respiratory failure, unspecified with hypoxia Status: Acute Assessment and Plan: Patient with chronic respiratory failure requiring trach. She normally on 5L O2 via trach collar. CXR showing bibasilar infiltrates and/or atelectasis Trach changed out here Routine trach care with suctioning as needed. (4) AMS (altered mental status): Code(s): R41.82 - Altered mental status, unspecified Status: Acute Assessment and Plan: Patient brought to the ED for alteed mental status. Probably metabolic encephalopathy related to above Continue current treatment as above Monitor for signs of improvement (5) Decubital ulcer: Code(s): L89.90 - Pressure ulcer of unspecified site, unspecified stage Status: Acute Assessment and Plan: Patient with decubitus ulcer present on admission. Discussed with wound care team. Eric odor and 80% necrotic. CT pelvis 09/25 showing no evidence of a deeper wound Gen surgery consult placed for debridement eval (6) Quadriplegia: Code(s): G82.50 - Quadriplegia, unspecified Status: Acute Assessment and Plan: Related to brain tumor and surgery Round the clock turning schedule Has a decubitus present on admission. Routine skin care As above (7) Megaloblastic anemia: Code(s): D53.1 - Other megaloblastic anemias, not elsewhere classified Status: Acute Assessment and Plan: Hgb 6.8 on admission. No baseline Hgb to compare but family states patient had an extensive workup and related to BM depression No evidence of acute blood loss CT Ch/A/P showing no etiology of blood loss. Stool guaiac negative. Not on anticoagulation. No anemia evaluation performed prior to transfusion but Iron studies consistent with anemia of chronic disease. B12/folate normal. She was transfused on admission 2Units PRBC. hgb climbed to 7-8 range Monitor HH 09/29: stable, continue to monitor (8) Dysphagia: Code(s): R13.10 - Dysphagia, unspecified Status: Acute Assessment and Plan: j-tube in place. Order enzymatic treatment to keep tube patent Continue tube feedings 09/30: j-tube clogged, appreciate surg consult (9) Hyperkalemia: Code(s): E87.5 - Hyperkalemia Status: Acute Assessment and Plan: Potassium mildly elevated at 5.4 felt related to the CONCEPCION. Cortisol level elevated at 36 and TSH elevated at 6.9. Potassium normal now Monitor.
[2023-10-02 13:10] LABS: Glucose Point of Care 124 mg/dl (65-105)
[2023-10-02] MEDS: SOD HYPOCHLORITE 1/4 STRENGTH 473 ML 1 APPLIC TOPICAL ×2 (14:00→20:11)
[2023-10-02 18:28] LABS: Glucose Point of Care 97 mg/dl (65-105)
[2023-10-02] MEDS: SENNOSIDES 8.8 MG/5 ML SYRUP FEED TUBE (19:59)
[2023-10-03] VITALS (14 sets, daily range): BP systolic 122–130; BP diastolic 59–73; PULSE 95–108; RESP 20–26; TEMP 36.4–36.9; O2SAT 97–99
[2023-10-03 00:26] LABS: Glucose Point of Care 131 mg/dl (65-105)
[2023-10-03] MEDS: IPRATROPIUM BR 0.02% INH SOLN 0.5 MG/2.5 ML VIAL INHALATION ×4 (02:05→20:31)
[2023-10-03] MEDS: ALBUTEROL SULFATE NEB 2.5 MG/3 ML INH INHALATION ×4 (02:05→20:55)
[2023-10-03 06:48] LABS: Alanine Aminotransferase 15 U/L (6-35); Albumin Level 2.8 g/dL (3.5-5.1); Alkaline Phosphatase 61 U/L (38-126); Anion Gap 9 mmol/L (8-16); Aspartate Amino Transferase 34 U/L (14-36); Bilirubin,Total 0.8 mg/dL (0.2-1.3); Blood Urea Nitrogen 38 mg/dL (7-17); Carbon Dioxide 22 mmol/L (22-30); Chloride 107 mmol/L (98-107); Estimated CRCL calculation 67 ml/min; Estimated Glomerular Filt Rate > 60; Glucose 90 mg/dL (65-110); Potassium 4.8 mmol/L (3.4-5.0); Sodium 138 mmol/L (137-145)
[2023-10-03 07:45] LABS: Basophils Percent Auto 0.1 % (0.2-1.2); Eosinophils Absolute Auto 0.2 K/mm3 (0-0.3); Eosinophils Percent Auto 2.2 % (0-4.4); Hematocrit 24.5 % (37.0-47.0); Hemoglobin 7.6 g/dL (12.0-15.0); Immature Granulocyte Percent A 1.3 % (0-0.5); Lymphocytes Percent Auto 10.3 % (18.3-44.2); Mean Corpuscular Hemoglobin 31.1 pg (26-34); Mean Corpuscular Volume 100.4 fl (80-100); Mean Platelet Volume 11.1 fl (7.4-10.4); Monocytes Absolute Auto 0.4 K/mm3 (0.1-0.6); Monocytes Percent Auto 5.3 % (2.6-8.5); Neutrophils Absolute Auto 6.2 K/mm3 (1.3-6.7); Neutrophils Percent Auto 80.8 % (45.5-73.1); Platelet Count Result 273 k/mm3 (150-375); Red Blood Count 2.44 M/mm3 (4.2-5.4); Red Cell Distribution Width 15.8 % (11.5-14.5); White Blood Count 7.7 K/mm3 (4.5-10.0)
[2023-10-03] MEDS: DORNASE ALFA INH SOLN 1 MG/ML 2.5 ML AMP 2.5 MG INHALATION ×2 (09:12→20:31)
--- NOTE | 2023-10-03 09:24 | PM.PNGS ---
Progress Note: A&P Assessment and Plan (1) Decubital ulcer: Code(s): L89.90 - Pressure ulcer of unspecified site, unspecified stage Status: Acute Assessment and Plan: plan for OR early next week for debridement and likely vac placement, cont local wound care for now and off loading Subjective Subjective Date/Time Seen: 10/03/23 09:24 Interval history: no acute issues, discussed c family at bedside Review of Systems Review of Systems: ROS unobtainable: Yes unobtainable due to medical condition and unobtainable due to mental status Exam Const: General: ill appearing Other: trach, vented Resp: Auscultation: diminished lung sounds Cardio: Rate: regular rate Rhythm: regular rhythm GI: Inspection: normal to inspection Other: G tube - C/D/I Objective Data Vital Signs Vital Signs: Vital Signs - 24 hr 10/02/23 10:40 10/02/23 10:43 10/02/23 10:58 Temperature Pulse Rate 95 98 Respiratory Rate 20 20 Blood Pressure Pulse Oximetry 96 Oxygen Delivery High Flow Therapy with Tr Oxygen Flow Rate 30 Fraction of Inspired Oxygen 45 10/02/23 13:10 10/02/23 13:20 10/02/23 13:20 Temperature Pulse Rate 94 96 96 Respiratory Rate 20 20 20 Blood Pressure Pulse Oximetry 95 Oxygen Delivery High Flow Therapy with Tr Oxygen Flow Rate 30 Fraction of Inspired Oxygen 45 10/02/23 14:00 10/02/23 10:10 10/02/23 21:57 Temperature 36.9 C Pulse Rate 99 102 H Respiratory Rate 20 24 H Blood Pressure 121/72 Pulse Oximetry 100 100 Oxygen Delivery Nasal Cannula Oxygen Flow Rate 2 Fraction of Inspired Oxygen 10/02/23 22:02 10/02/23 22:18 10/02/23 22:00 Temperature 37.2 C Pulse Rate 102 H 98 96 Respiratory Rate 24 H 24 H Blood Pressure 124/68 Pulse Oximetry 95 97 Oxygen Delivery High Flow Therapy with Tr Oxygen Flow Rate 30 Fraction of Inspired Oxygen 45 10/03/23 02:05 10/03/23 02:05 10/03/23 02:15 Temperature Pulse Rate 97 97 95 Respiratory Rate 24 H 24 H Blood Pressure Pulse Oximetry 97 Oxygen Delivery High Flow Therapy with Tr Oxygen Flow Rate 30 Fraction of Inspired Oxygen 45 10/03/23 06:00 10/03/23 09:12 10/03/23 09:22 Temperature 36.6 C Pulse Rate 108 H 108 H 102 H Respiratory Rate 24 H 22 H 22 H Blood Pressure 127/73 Pulse Oximetry 99 99 Oxygen Delivery High Flow Therapy with Tr Oxygen Flow Rate 30 Fraction of Inspired Oxygen 40 Intake/Output Intake/Output: Intake & Output 09/30/23 10/01/23 10/02/23 10/03/23 23:59 23:59 23:59 23:59 Intake Total 2650 1050 50 Output Total 1750 1850 2500 875 Balance 075 -016 -6560 -875 Meds/Results Medications: Active Medications Generic Name Dose Route Start Last Admin Trade Name Freq PRN Reason Stop Dose Admin Acetaminophen 650 mg 09/27/23 13:47 09/29/23 00:26 Acetaminophen 325 Mg Tablet FEED TUBE 650 mg Q6H PRN Administration Mild Pain (1-3) or Fever Albuterol 2.5 mg 09/26/23 08:00 10/03/23 09:11 Albuterol Sulfate Neb 2.5 Mg/3 Ml Inh INHALATION 2.5 mg Q6HRT TOMA Administration Amlodipine Besylate 5 mg 09/25/23 09:00 10/02/23 10:13 Amlodipine Besylate 5 Mg Tablet FEED TUBE 10/25/23 08:59 5 mg DAILY TOMA Administration Ascorbic Acid 500 mg 09/25/23 09:00 10/02/23 10:13 Ascorbic Acid 500 Mg Tablet FEED TUBE 10/25/23 08:59 500 mg DAILY TOMA Administration Dornase Allan 2.5 mg 09/26/23 08:00 10/03/23 09:12 Dornase Allan Inh Soln 1 Mg/Ml 2.5 Ml Amp INHALATION 2.5 mg Q12HRT TOMA Administration Enoxaparin Sodium 40 mg 09/29/23 09:00 10/02/23 10:13 Enoxaparin 40 Mg/0.4 Ml Syringe SUB-Q 40 mg DAILY TOMA Administration Famotidine 20 mg 09/25/23 09:00 10/02/23 10:13 Famotidine 20 Mg Tablet FEED TUBE 10/25/23 08:59 20 mg DAILY TOMA Administration Fentanyl Citrate 12.5 mcg 09/30/23 14:04 09/30/23 14:26 Fentanyl Citrate Inj (*Crx) 100 Mcg/2 Ml Vial I
[2023-10-03] MEDS: amLODIPine BESYLATE 5 MG TABLET FEED TUBE (10:13)
[2023-10-03] MEDS: THIAMINE HCL 100 MG TABLET FEED TUBE (10:13)
[2023-10-03] MEDS: FAMOTIDINE 20 MG TABLET FEED TUBE (10:13)
[2023-10-03] MEDS: ASCORBIC ACID 500 MG TABLET FEED TUBE (10:13)
[2023-10-03] MEDS: ENOXAPARIN 40 MG/0.4 ML SYRINGE SUB-Q (10:13)
[2023-10-03] MEDS: polyethylene glycoL 3350 17 GM POWD.PACK FEED TUBE (10:28)
--- NOTE | 2023-10-03 13:05 | PM.IMPN ---
Progress Note: A&P Assessment and Plan (1) CONCEPCION (acute kidney injury): Code(s): N17.9 - Acute kidney failure, unspecified Status: Acute Assessment and Plan: BUN 103 and Cr 2.9 on admission. Per family, baseline Cr 1.13 Neville has been replaced and draining well CT scan showing bilateral hydronephrosis and moderate diffuse bladder wall thickening c/w cystitis UA concerning for possible infection. Prot/Cr ratio 25g (and 8gm on repeat). TCK 73. Nephrology consulted and appreciate their input. Possibly pre-renal although has possibly ureteral obstruction from bladder wall thickening. Increased free water flushes and on IVF Renal US showing no stones, masses or hydronephrosis Was Neville obstructed? UCx growing Klebsiella 50-100K. Repeat renal function values better. Continue to monitor BUN and creatinine. Daily intake and output. 09/29: Urine culture positive for pansensitive Klebsiella, creatinine 1.5 today, almost at baseline, continue to monitor 09/30: Cont rocephin 10/01: D/c rocephin and monitor off abx, appears resolved 10/02: stable off abx (2) Hypernatremia: Code(s): E87.0 - Hyperosmolality and hypernatremia Status: Acute Assessment and Plan: Related to TF and increased insensible losses. Benson 78 but could be higher if she had normal renal function. Advanced water flushes Na normal now at 145 Continue to monitor Resolved (3) Respiratory failure with hypoxia: Code(s): J96.91 - Respiratory failure, unspecified with hypoxia Status: Acute Assessment and Plan: Patient with chronic respiratory failure requiring trach. She normally on 5L O2 via trach collar. CXR showing bibasilar infiltrates and/or atelectasis Trach changed out here Routine trach care with suctioning as needed. (4) AMS (altered mental status): Code(s): R41.82 - Altered mental status, unspecified Status: Acute Assessment and Plan: Patient brought to the ED for alteed mental status. Probably metabolic encephalopathy related to above Continue current treatment as above Monitor for signs of improvement (5) Decubital ulcer: Code(s): L89.90 - Pressure ulcer of unspecified site, unspecified stage Status: Acute Assessment and Plan: Patient with decubitus ulcer present on admission. Discussed with wound care team. Eric odor and 80% necrotic. CT pelvis 09/25 showing no evidence of a deeper wound Gen surgery consult placed for debridement eval 10/03: plan for OR for debridement and wound vac placement early next week (6) Quadriplegia: Code(s): G82.50 - Quadriplegia, unspecified Status: Acute Assessment and Plan: Related to brain tumor and surgery Round the clock turning schedule Has a decubitus present on admission. Routine skin care As above (7) Megaloblastic anemia: Code(s): D53.1 - Other megaloblastic anemias, not elsewhere classified Status: Acute Assessment and Plan: Hgb 6.8 on admission. No baseline Hgb to compare but family states patient had an extensive workup and related to BM depression No evidence of acute blood loss CT Ch/A/P showing no etiology of blood loss. Stool guaiac negative. Not on anticoagulation. No anemia evaluation performed prior to transfusion but Iron studies consistent with anemia of chronic disease. B12/folate normal. She was transfused on admission 2Units PRBC. hgb climbed to 7-8 range Monitor HH 09/29: stable, continue to monitor (8) Dysphagia: Code(s): R13.10 - Dysphagia, unspecified Status: Acute Assessment and Plan: j-tube in place. Order enzymatic treatment to keep tube patent Continue tube feedings (9) Hyperkalemia: Code(s): E87.5 - Hyperkalemia Status: Acute Assessment and Plan: Potassium mildly elevated at 5.4 felt related to the CONCEPCION. Cortisol level elevated at 36 and TSH elevated at 6.9. Potassium
[2023-10-03] MEDS: SOD HYPOCHLORITE 1/4 STRENGTH 473 ML 1 APPLIC TOPICAL ×2 (15:14→20:36)
[2023-10-03 16:00] LABS: Glucose Point of Care 96 mg/dl (65-105)
--- NOTE | 2023-10-03 18:36 | PC.NURSE ---
Emili Figueroa LPN provided care for this patient on 10/03/23. I have reviewed her assessment and agree with her charting.
[2023-10-03] MEDS: SENNOSIDES 8.8 MG/5 ML SYRUP FEED TUBE (20:36)
[2023-10-04] VITALS (14 sets, daily range): BP systolic 123–134; BP diastolic 57–77; PULSE 95–109; RESP 20–26; TEMP 36.3–37.2; O2SAT 97–100
[2023-10-04] MEDS: IPRATROPIUM BR 0.02% INH SOLN 0.5 MG/2.5 ML VIAL INHALATION ×4 (02:40→20:32)
[2023-10-04] MEDS: ALBUTEROL SULFATE NEB 2.5 MG/3 ML INH INHALATION ×4 (02:40→20:32)
[2023-10-04 06:43] LABS: Alanine Aminotransferase 14 U/L (6-35); Albumin Level 2.6 g/dL (3.5-5.1); Alkaline Phosphatase 71 U/L (38-126); Anion Gap 8 mmol/L (8-16); Aspartate Amino Transferase 25 U/L (14-36); Bilirubin,Total 0.4 mg/dL (0.2-1.3); Blood Urea Nitrogen 34 mg/dL (7-17); Calcium 8.5 mg/dL (8.4-10.2); Carbon Dioxide 21 mmol/L (22-30); Chloride 109 mmol/L (98-107); Estimated CRCL calculation 67 ml/min; Estimated Glomerular Filt Rate > 60; Glucose 105 mg/dL (65-110); Potassium 4.8 mmol/L (3.4-5.0); Sodium 138 mmol/L (137-145)
[2023-10-04 06:55] LABS: Basophils Percent Auto 0.3 % (0.2-1.2); Eosinophils Absolute Auto 0.2 K/mm3 (0-0.3); Eosinophils Percent Auto 2.7 % (0-4.4); Hematocrit 26.3 % (37.0-47.0); Hemoglobin 7.5 g/dL (12.0-15.0); Immature Granulocyte Absolute 0.13 K/mm3 (0.00-0.031); Immature Granulocyte Percent A 1.7 % (0-0.5); Lymphocytes Absolute Auto 1.07 K/mm3 (0.9-3.2); Lymphocytes Percent Auto 13.8 % (18.3-44.2); Mean Corpuscular HGB Conc 28.5 g/dl (32-36); Mean Corpuscular Hemoglobin 30.6 pg (26-34); Mean Corpuscular Volume 107.3 fl (80-100); Mean Platelet Volume 11.1 fl (7.4-10.4); Monocytes Absolute Auto 0.5 K/mm3 (0.1-0.6); Monocytes Percent Auto 6.2 % (2.6-8.5); Neutrophils Absolute Auto 5.9 K/mm3 (1.3-6.7); Neutrophils Percent Auto 75.3 % (45.5-73.1); Red Blood Count 2.45 M/mm3 (4.2-5.4); Red Cell Distribution Width 15.7 % (11.5-14.5); White Blood Count 7.8 K/mm3 (4.5-10.0)
[2023-10-04 07:32] LABS: Platelet Count Result 281 k/mm3 (150-375)
[2023-10-04] MEDS: DORNASE ALFA INH SOLN 1 MG/ML 2.5 ML AMP 2.5 MG INHALATION ×2 (07:40→20:32)
[2023-10-04] MEDS: amLODIPine BESYLATE 5 MG TABLET FEED TUBE (10:54)
[2023-10-04] MEDS: FAMOTIDINE 20 MG TABLET FEED TUBE (10:54)
[2023-10-04] MEDS: THIAMINE HCL 100 MG TABLET FEED TUBE (10:54)
[2023-10-04] MEDS: ENOXAPARIN 40 MG/0.4 ML SYRINGE SUB-Q (10:54)
[2023-10-04] MEDS: ASCORBIC ACID 500 MG TABLET FEED TUBE (10:54)
--- NOTE | 2023-10-04 11:03 | PM.PNGS ---
Progress Note: A&P Assessment and Plan (1) Decubital ulcer: Code(s): L89.90 - Pressure ulcer of unspecified site, unspecified stage Status: Acute Assessment and Plan: will setup for debridement in OR c likely VAC placement, will hold TF after MN, recheck labs in AM as H/H a little low Subjective Subjective Date/Time Seen: 10/04/23 11:03 Interval history: no acute issues, no one present at bedside during rounds today Review of Systems Review of Systems: ROS unobtainable: Yes unobtainable due to medical condition and unobtainable due to mental status Exam Const: General: cooperative, comfortable and no acute distress Resp: Auscultation: diminished lung sounds Cardio: Rate: regular rate Rhythm: regular rhythm GI: Inspection: normal to inspection Objective Data Vital Signs Vital Signs: Vital Signs - 24 hr 10/03/23 13:59 10/03/23 14:57 10/03/23 15:03 Temperature 36.9 C Pulse Rate 102 H 100 100 Respiratory Rate 20 24 H 20 Blood Pressure 122/72 Pulse Oximetry 98 98 Oxygen Delivery High Flow Therapy with Tr Oxygen Flow Rate 30 Fraction of Inspired Oxygen 38 10/03/23 15:15 10/03/23 20:26 10/03/23 20:31 Temperature Pulse Rate 104 H 106 H Respiratory Rate 24 H 22 H Blood Pressure Pulse Oximetry 99 Oxygen Delivery High Flow Therapy with Tr Oxygen Flow Rate 30 Fraction of Inspired Oxygen 40 10/03/23 20:55 10/03/23 22:00 10/04/23 02:40 Temperature 36.4 C L Pulse Rate 106 H 106 H 100 Respiratory Rate 20 26 H 20 Blood Pressure 130/59 L Pulse Oximetry 99 Oxygen Delivery Oxygen Flow Rate Fraction of Inspired Oxygen 10/04/23 02:54 10/04/23 06:00 10/04/23 07:39 Temperature 36.3 C L Pulse Rate 102 H 95 97 Respiratory Rate 20 22 H 20 Blood Pressure 128/57 L Pulse Oximetry 98 Oxygen Delivery Oxygen Flow Rate Fraction of Inspired Oxygen 10/04/23 07:39 10/04/23 08:59 Temperature Pulse Rate 102 H Respiratory Rate 20 Blood Pressure Pulse Oximetry 100 Oxygen Delivery High Flow Therapy with Tr Oxygen Flow Rate 30 Fraction of Inspired Oxygen 40 Intake/Output Intake/Output: Intake & Output 10/01/23 10/02/23 10/03/23 10/04/23 23:59 23:59 23:59 23:59 Intake Total 1050 1270 573 Output Total 2809 4368 5463 1000 Rolzlzs -800 -1230 -902 -1000 Meds/Results Medications: Active Medications Generic Name Dose Route Start Last Admin Trade Name Freq PRN Reason Stop Dose Admin Acetaminophen 650 mg 09/27/23 13:47 09/29/23 00:26 Acetaminophen 325 Mg Tablet FEED TUBE 650 mg Q6H PRN Administration Mild Pain (1-3) or Fever Albuterol 2.5 mg 09/26/23 08:00 10/04/23 07:39 Albuterol Sulfate Neb 2.5 Mg/3 Ml Inh INHALATION 2.5 mg Q6HRT TOMA Administration Amlodipine Besylate 5 mg 09/25/23 09:00 10/04/23 10:54 Amlodipine Besylate 5 Mg Tablet FEED TUBE 10/25/23 08:59 5 mg DAILY TOMA Administration Ascorbic Acid 500 mg 09/25/23 09:00 10/04/23 10:54 Ascorbic Acid 500 Mg Tablet FEED TUBE 10/25/23 08:59 500 mg DAILY TOMA Administration Dornase Allan 2.5 mg 09/26/23 08:00 10/04/23 07:40 Dornase Allan Inh Soln 1 Mg/Ml 2.5 Ml Amp INHALATION 2.5 mg Q12HRT TOMA Administration Enoxaparin Sodium 40 mg 09/29/23 09:00 10/04/23 10:54 Enoxaparin 40 Mg/0.4 Ml Syringe SUB-Q 40 mg DAILY TOMA Administration Famotidine 20 mg 09/25/23 09:00 10/04/23 10:54 Famotidine 20 Mg Tablet FEED TUBE 10/25/23 08:59 20 mg DAILY TOMA Administration Fentanyl Citrate 12.5 mcg 09/30/23 14:04 09/30/23 14:26 Fentanyl Citrate Inj (*Crx) 100 Mcg/2 Ml Vial IV PUSH 12.5 mcg Q4H PRN Administration Pain Rated 7-10 Ceftriaxone Sodium 1 gm in 50 mls @ 100 mls/hr 09/28/23 10:00 10/04/23 10:54 Rocephin 1 Gm/Ns 50 Ml IVPB 100 mls/hr Q24H TOMA Administration Ipratropium [place] 0.5 mg 09/26/23 08:00 10/04/23 07:39 Ipratropium Br 0.02% Inh Soln 0.5 Mg/2
[2023-10-04 12:00] LABS: Glucose Point of Care 106 mg/dl (65-105)
[2023-10-04] MEDS: SOD HYPOCHLORITE 1/4 STRENGTH 473 ML 1 APPLIC TOPICAL ×2 (15:00→21:25)
--- NOTE | 2023-10-04 17:33 | PM.IMPN ---
Progress Note: A&P Assessment and Plan (1) Decubital ulcer: Code(s): L89.90 - Pressure ulcer of unspecified site, unspecified stage Status: Acute Assessment and Plan: Patient with decubitus ulcer present on admission. Discussed with wound care team. Strong odor and 80% necrotic. CT pelvis 09/25 showing no evidence of a deeper wound Gen surgery consult placed for debridement eval 10/04: plan for OR for debridement and wound vac placement early next week (2) CONCEPCION (acute kidney injury): Code(s): N17.9 - Acute kidney failure, unspecified Status: Acute Assessment and Plan: BUN 103 and Cr 2.9 on admission. Per family, baseline Cr 1.13 Neville has been replaced and draining well CT scan showing bilateral hydronephrosis and moderate diffuse bladder wall thickening c/w cystitis UA concerning for possible infection. Prot/Cr ratio 25g (and 8gm on repeat). TCK 73. Nephrology consulted and appreciate their input. Possibly pre-renal although has possibly ureteral obstruction from bladder wall thickening. Increased free water flushes and on IVF Renal US showing no stones, masses or hydronephrosis Was Neville obstructed? UCx growing Klebsiella 50-100K. Repeat renal function values better. Continue to monitor BUN and creatinine. Daily intake and output. resolved (3) Hypernatremia: Code(s): E87.0 - Hyperosmolality and hypernatremia Status: Acute Assessment and Plan: Related to TF and increased insensible losses. Benson 78 but could be higher if she had normal renal function. Advanced water flushes Na normal now at 145 Continue to monitor Resolved (4) Respiratory failure with hypoxia: Code(s): J96.91 - Respiratory failure, unspecified with hypoxia Status: Acute Assessment and Plan: Patient with chronic respiratory failure requiring trach. She normally on 5L O2 via trach collar. CXR showing bibasilar infiltrates and/or atelectasis Trach changed out here Routine trach care with suctioning as needed. (5) AMS (altered mental status): Code(s): R41.82 - Altered mental status, unspecified Status: Acute Assessment and Plan: Patient brought to the ED for alteed mental status. Probably metabolic encephalopathy related to above Continue current treatment as above resolved (6) Quadriplegia: Code(s): G82.50 - Quadriplegia, unspecified Status: Acute Assessment and Plan: Related to brain tumor and surgery Round the clock turning schedule Has a decubitus present on admission. Routine skin care As above (7) Megaloblastic anemia: Code(s): D53.1 - Other megaloblastic anemias, not elsewhere classified Status: Acute Assessment and Plan: Hgb 6.8 on admission. No baseline Hgb to compare but family states patient had an extensive workup and related to BM depression No evidence of acute blood loss CT Ch/A/P showing no etiology of blood loss. Stool guaiac negative. Not on anticoagulation. No anemia evaluation performed prior to transfusion but Iron studies consistent with anemia of chronic disease. B12/folate normal. She was transfused on admission 2Units PRBC. hgb climbed to 7-8 range Monitor HH, stable (8) Dysphagia: Code(s): R13.10 - Dysphagia, unspecified Status: Acute Assessment and Plan: j-tube in place. Order enzymatic treatment to keep tube patent Continue tube feedings (9) Hyperkalemia: Code(s): E87.5 - Hyperkalemia Status: Acute Assessment and Plan: Potassium mildly elevated at 5.4 felt related to the CONCEPCION. Cortisol level elevated at 36 and TSH elevated at 6.9. Potassium normal now resolved (10) Brain tumor: Code(s): D49.6 - Neoplasm of unspecified behavior of brain Status: Acute Assessment and Plan: Status post resection Family wants patient to go to another facility PT/OT ordered appeals coordinator ron
[2023-10-04] MEDS: SENNOSIDES 8.8 MG/5 ML SYRUP FEED TUBE (21:25)
[2023-10-05] VITALS (14 sets, daily range): BP systolic 123–149; BP diastolic 69–82; PULSE 90–115; RESP 20–24; TEMP 36.5–37.2; O2SAT 94–98
[2023-10-05 00:16] LABS: Glucose Point of Care 141 mg/dl (65-105)
[2023-10-05] MEDS: IPRATROPIUM BR 0.02% INH SOLN 0.5 MG/2.5 ML VIAL INHALATION ×4 (01:15→21:52)
[2023-10-05] MEDS: ALBUTEROL SULFATE NEB 2.5 MG/3 ML INH INHALATION ×4 (01:15→21:52)
[2023-10-05 06:36] LABS: Basophils Percent Auto 0.2 % (0.2-1.2); Eosinophils Absolute Auto 0.2 K/mm3 (0-0.3); Eosinophils Percent Auto 1.7 % (0-4.4); Hematocrit 25.8 % (37.0-47.0); Hemoglobin 7.7 g/dL (12.0-15.0); Immature Granulocyte Absolute 0.14 K/mm3 (0.00-0.031); Immature Granulocyte Percent A 1.6 % (0-0.5); Lymphocytes Absolute Auto 0.97 K/mm3 (0.9-3.2); Lymphocytes Percent Auto 10.9 % (18.3-44.2); Mean Corpuscular HGB Conc 29.8 g/dl (32-36); Mean Corpuscular Hemoglobin 30.2 pg (26-34); Mean Corpuscular Volume 101.2 fl (80-100); Mean Platelet Volume 10.8 fl (7.4-10.4); Monocytes Absolute Auto 0.5 K/mm3 (0.1-0.6); Neutrophils Absolute Auto 7.1 K/mm3 (1.3-6.7); Neutrophils Percent Auto 79.6 % (45.5-73.1); Platelet Count Result 327 k/mm3 (150-375); Red Blood Count 2.55 M/mm3 (4.2-5.4); Red Cell Distribution Width 15.9 % (11.5-14.5); White Blood Count 8.9 K/mm3 (4.5-10.0)
[2023-10-05 06:49] LABS: Alanine Aminotransferase 14 U/L (6-35); Alkaline Phosphatase 79 U/L (38-126); Anion Gap 8 mmol/L (8-16); Aspartate Amino Transferase 19 U/L (14-36); Bilirubin,Total 0.4 mg/dL (0.2-1.3); Blood Urea Nitrogen 32 mg/dL (7-17); Calcium 8.6 mg/dL (8.4-10.2); Carbon Dioxide 29 mmol/L (22-30); Chloride 104 mmol/L (98-107); Estimated CRCL calculation 75 ml/min; Estimated Glomerular Filt Rate > 60; Glucose 92 mg/dL (65-110); Potassium 4.5 mmol/L (3.4-5.0); Sodium 141 mmol/L (137-145)
[2023-10-05 07:37] LABS: Glucose Point of Care 78 mg/dl (65-105)
[2023-10-05] MEDS: ASCORBIC ACID 500 MG TABLET FEED TUBE (08:59)
[2023-10-05] MEDS: THIAMINE HCL 100 MG TABLET FEED TUBE (08:59)
[2023-10-05] MEDS: amLODIPine BESYLATE 5 MG TABLET FEED TUBE (08:59)
[2023-10-05] MEDS: FAMOTIDINE 20 MG TABLET FEED TUBE (09:00)
[2023-10-05] MEDS: DORNASE ALFA INH SOLN 1 MG/ML 2.5 ML AMP 2.5 MG INHALATION ×2 (10:05→21:52)
--- NOTE | 2023-10-05 11:09 | PCNFU ---
Nutrition Follow-Up Complete: Altered Nutrition Laboratory Values as related to hypernatremia as evidenced by Na 154. Goal:Na to correct WNL Pt current nutrition is Jevity 1.2 @ 75 ml/h: 1980 kcal, 92 g protein, 1332 ml free water. Meeting estimated nutrition needs ~100%. Nutrition recommendation: continue with current plan of care Last recorded weight is 88 kg. Bowel Motility: +BM 10/04 Labs Reviewed:Hgb:7.7, HCT:25.8, Alb:3.0, BUN:32 Meds Noted: miralox, lovenox Skin:unstageable wound to buttocks Additional Notes: Tube feeding continues as before, pt has been tolerating well. On hold today for wound debridement. Resume post procedure. Will continue to monitor weight, labs, skin, tube feeding, meds every Wednesday and Wednesday.
[2023-10-05 11:41] LABS: Glucose Point of Care 95 mg/dl (65-105)
[2023-10-05] MEDS: SCOPOLAMINE 1 MG PATCH 1 PATCH TRANSDERM (13:13)
[2023-10-05] MEDS: ENOXAPARIN 40 MG/0.4 ML SYRINGE SUB-Q (13:14)
--- NOTE | 2023-10-05 13:51 | PM.IMPN ---
Progress Note: A&P Assessment and Plan (1) Decubital ulcer: Code(s): L89.90 - Pressure ulcer of unspecified site, unspecified stage Status: Acute Assessment and Plan: Patient with decubitus ulcer present on admission. Discussed with wound care team. Strong odor and 80% necrotic. CT pelvis 09/25 showing no evidence of a deeper wound Gen surgery consult placed for debridement eval plan for OR for debridement and wound vac placement early next week (2) CONCEPCION (acute kidney injury): Code(s): N17.9 - Acute kidney failure, unspecified Status: Acute Assessment and Plan: BUN 103 and Cr 2.9 on admission. Per family, baseline Cr 1.13 Neville has been replaced and draining well CT scan showing bilateral hydronephrosis and moderate diffuse bladder wall thickening c/w cystitis UA concerning for possible infection. Prot/Cr ratio 25g (and 8gm on repeat). TCK 73. Nephrology consulted and appreciate their input. Possibly pre-renal although has possibly ureteral obstruction from bladder wall thickening. Increased free water flushes and on IVF Renal US showing no stones, masses or hydronephrosis Was Neville obstructed? UCx growing Klebsiella 50-100K. Repeat renal function values better. Continue to monitor BUN and creatinine. Daily intake and output. resolved (3) Hypernatremia: Code(s): E87.0 - Hyperosmolality and hypernatremia Status: Acute Assessment and Plan: Related to TF and increased insensible losses. Benson 78 but could be higher if she had normal renal function. Advanced water flushes Na normal now at 145 Continue to monitor Resolved (4) Respiratory failure with hypoxia: Code(s): J96.91 - Respiratory failure, unspecified with hypoxia Status: Acute Assessment and Plan: Patient with chronic respiratory failure requiring trach. She normally on 5L O2 via trach collar. CXR showing bibasilar infiltrates and/or atelectasis Trach changed out here Routine trach care with suctioning as needed. (5) AMS (altered mental status): Code(s): R41.82 - Altered mental status, unspecified Status: Acute Assessment and Plan: Patient brought to the ED for alteed mental status. Probably metabolic encephalopathy related to above Continue current treatment as above resolved (6) Quadriplegia: Code(s): G82.50 - Quadriplegia, unspecified Status: Acute Assessment and Plan: Related to brain tumor and surgery Round the clock turning schedule Has a decubitus present on admission. Routine skin care As above (7) Megaloblastic anemia: Code(s): D53.1 - Other megaloblastic anemias, not elsewhere classified Status: Acute Assessment and Plan: Hgb 6.8 on admission. No baseline Hgb to compare but family states patient had an extensive workup and related to BM depression No evidence of acute blood loss CT Ch/A/P showing no etiology of blood loss. Stool guaiac negative. Not on anticoagulation. No anemia evaluation performed prior to transfusion but Iron studies consistent with anemia of chronic disease. B12/folate normal. She was transfused on admission 2Units PRBC. hgb climbed to 7-8 range Monitor HH, stable (8) Dysphagia: Code(s): R13.10 - Dysphagia, unspecified Status: Acute Assessment and Plan: j-tube in place. Order enzymatic treatment to keep tube patent Continue tube feedings 1/2: j-tube clogged again, surgery c/s for possible replacement? (9) Hyperkalemia: Code(s): E87.5 - Hyperkalemia Status: Acute Assessment and Plan: Potassium mildly elevated at 5.4 felt related to the CONCEPCION. Cortisol level elevated at 36 and TSH elevated at 6.9. Potassium normal now resolved (10) Brain tumor: Code(s): D49.6 - Neoplasm of unspecified behavior of brain Status: Acute Assessment and Plan: Status post resection Family wants patient to
--- NOTE | 2023-10-05 13:54 | PM.PNGS ---
Progress Note: A&P Assessment and Plan (1) Decubital ulcer: Code(s): L89.90 - Pressure ulcer of unspecified site, unspecified stage Status: Acute Assessment and Plan: Plan for surgical debridement in OR tomorrow with likely wound VAC placement. Tube feeding on hold as J-tube is clogged. Will have an order to hold at midnight if they are able to unclog it today. (2) Malfunctioning jejunostomy tube: Code(s): K94.13 - Enterostomy malfunction Status: Acute Assessment and Plan: J-tube has had issues with clogging multiple times since admission. If this needs to be replaced, then we would defer to GI or the other option is having it replaced by IR that would require transfer to another facility capable of this procedure in IR. Would recommend attempting these less invasive options prior to considering an open laparotomy for replacement of the jejunostomy tube. Plan I have discussed the patient's case and plan of care with Dr. Mendes. Subjective Subjective Date/Time Seen: 10/05/23 13:54 Interval history: 53yo female with hx of brain tumor s/p resection, ventriculoperitoneal shunt, tracheostomy, dysphagia with Jejunostomy-tube and quadriplegia [facility]. She has a sacral decubitus ulcer that we have been consulted for and planning to take to the OR tomorrow for debridement. She is seen today with a friend at the bedside. She is nonverbal. Per nursing, her J-tube has clogged this morning. This has happened multiple times since her hospitalization. Her has tried to unclog with soda in the past successfully as this has happened previously when [facility] was at the [facility]. Review of Systems Review of Systems: ROS unobtainable: Yes unobtainable due to medical condition Exam Const: General: no acute distress HENMT: Head: other (tracheostomy) GI: Inspection: non-distended and other (J-tube clamped) GI Palp: Yes Soft to palpation and No Tenderness to palpation present (GI) Auscultation: normal bowel sounds Skin: Other: Sacral wound unable to be assessed as patient is in the chair Objective Data Vital Signs Vital Signs: Vital Signs - 24 hr 10/04/23 14:02 10/04/23 14:06 10/04/23 14:24 Temperature Pulse Rate 98 109 H Respiratory Rate 22 H 20 Blood Pressure Pulse Oximetry 98 Oxygen Delivery High Flow Therapy with Tr Oxygen Flow Rate 30 Fraction of Inspired Oxygen 40 10/04/23 14:00 10/04/23 20:33 10/04/23 21:26 Temperature 98.9 F 99.0 F Pulse Rate 105 H 96 105 H Respiratory Rate 20 20 26 H Blood Pressure 123/71 134/77 Pulse Oximetry 100 97 Oxygen Delivery Oxygen Flow Rate Fraction of Inspired Oxygen 10/04/23 21:00 10/04/23 22:03 10/05/23 01:15 Temperature Pulse Rate 101 H 92 Respiratory Rate 20 20 Blood Pressure Pulse Oximetry 100 Oxygen Delivery High Flow Therapy with Tr Oxygen Flow Rate 30 Fraction of Inspired Oxygen 40 10/05/23 01:41 10/05/23 06:00 10/05/23 09:56 Temperature 98.4 F Pulse Rate 95 107 H 90 Respiratory Rate 20 24 H 22 H Blood Pressure 136/69 Pulse Oximetry 98 Oxygen Delivery Oxygen Flow Rate Fraction of Inspired Oxygen 10/05/23 10:06 10/05/23 08:45 Temperature Pulse Rate 92 Respiratory Rate 22 H Blood Pressure Pulse Oximetry 94 Oxygen Delivery High Flow Therapy with Tr Oxygen Flow Rate 5 Fraction of Inspired Oxygen 40 Intake/Output Intake/Output: Intake & Output 10/02/23 10/03/23 10/04/23 10/05/23 23:59 23:59 23:59 23:59 Intake Total 1270 573 884 0 Output Total 2500 1475 1650 750 [facility] -1230 -902 -766 -750 Meds/Results Medications: Active Medications Generic Name Dose Route Start Last Admin Trade Name Freq PRN Reason Stop Dose Admin Acetaminophen 650 mg 09/27/23 13:47 09/29/23 00:26 Acetaminophen 325 Mg Tablet FEED TUBE 650 mg Q6H PRN Administration Mild Pain (1-3) or Fe
[2023-10-05] MEDS: SOD HYPOCHLORITE 1/4 STRENGTH 473 ML 1 APPLIC TOPICAL (17:00)
[2023-10-05 18:21] LABS: Glucose Point of Care 94 mg/dl (65-105)
--- NOTE | 2023-10-05 20:04 | PC.NURSE ---
Pt j-tube clogged on 0900 medication pass, despite adequate crushing and flushing. Contacted surgery as originally they had been contacted late last week regarding possible j tube replacement as frequent clogging this admission and at previous facility noted. Surgery initially recommended flushing with cola. This RN informed surgery TAPER AND FLOATER that policy does not permit us to flush. She requested that I contact bianca sup to see if it would be permissable with MD order, as Vaughn has requested. Bianca saavedra communicated with GI. GI states they do not replace j-tubes and they do not feel that cola flushing would be beneficial. Bianca sup states that this RN is not permitted to flush j-tube with cola, despite MD request. Notified surgery TAPER AND FLOATER, who stated that surgery MD said they do not replace j-tubes and that he feels that it should be done in IR. Contacted IR. IR MD states that he has never done a J-tube procedure here and does not feel that IR does them. Notified surgery TAPER AND FLOATER, house sup, hospitalist, and relief charge nurse that at this time, uncertain who swaps J-tubes, as well as pt remains off of feedings and unable to receive PO meds. Surgery TAPER AND FLOATER to bedside to flush with cola. Two attempts made. J tube remains clogged at end of shift. states that there are clog blusters in her closet. Advised I would share with night RN to pass along to hospitalist/day RN to consider.
[2023-10-05 23:56] LABS: Glucose Point of Care 96 mg/dl (65-105)
[2023-10-06] VITALS (23 sets, daily range): BP systolic 113–134; BP diastolic 68–87; PULSE 91–111; RESP 14–26; TEMP 35.7–38; O2SAT 92–100
[2023-10-06] MEDS: ALBUTEROL SULFATE NEB 2.5 MG/3 ML INH INHALATION ×4 (02:30→21:40)
[2023-10-06] MEDS: IPRATROPIUM BR 0.02% INH SOLN 0.5 MG/2.5 ML VIAL INHALATION ×4 (02:30→21:40)
[2023-10-06 06:52] LABS: Basophils Percent Auto 0.1 % (0.2-1.2); Eosinophils Absolute Auto 0.1 K/mm3 (0-0.3); Eosinophils Percent Auto 1.3 % (0-4.4); Hematocrit 23.2 % (37.0-47.0); Immature Granulocyte Absolute 0.11 K/mm3 (0.00-0.031); Immature Granulocyte Percent A 1.3 % (0-0.5); Lymphocytes Absolute Auto 1.17 K/mm3 (0.9-3.2); Lymphocytes Percent Auto 13.8 % (18.3-44.2); Mean Corpuscular HGB Conc 30.2 g/dl (32-36); Mean Corpuscular Hemoglobin 30.6 pg (26-34); Mean Corpuscular Volume 101.3 fl (80-100); Mean Platelet Volume 10.6 fl (7.4-10.4); Monocytes Absolute Auto 0.5 K/mm3 (0.1-0.6); Monocytes Percent Auto 6.4 % (2.6-8.5); Neutrophils Absolute Auto 6.6 K/mm3 (1.3-6.7); Neutrophils Percent Auto 77.1 % (45.5-73.1); Platelet Count Result 308 k/mm3 (150-375); Red Blood Count 2.29 M/mm3 (4.2-5.4); Red Cell Distribution Width 15.9 % (11.5-14.5); White Blood Count 8.5 K/mm3 (4.5-10.0)
[2023-10-06 07:18] LABS: Alanine Aminotransferase 12 U/L (6-35); Albumin Level 2.9 g/dL (3.5-5.1); Alkaline Phosphatase 60 U/L (38-126); Anion Gap 13 mmol/L (8-16); Aspartate Amino Transferase 22 U/L (14-36); Bilirubin,Total 0.5 mg/dL (0.2-1.3); Blood Urea Nitrogen 29 mg/dL (7-17); Calcium 8.1 mg/dL (8.4-10.2); Carbon Dioxide 23 mmol/L (22-30); Chloride 105 mmol/L (98-107); Estimated CRCL calculation 67 ml/min; Estimated Glomerular Filt Rate > 60; Glucose 75 mg/dL (65-110); Potassium 4.3 mmol/L (3.4-5.0); Sodium 141 mmol/L (137-145)
[2023-10-06 07:37] LABS: Glucose Point of Care 79 mg/dl (65-105)
[2023-10-06 07:37] LABS: Glucose Point of Care 72 mg/dl (65-105)
--- NOTE | 2023-10-06 08:22 | WPDHPUPDATE1 ---
History and Physical Update Update Date/Time: 10/06/23 08:22 History and Physical has been reviewed, including an updated exam of the patient. There are NO changes in the patient's condition. Risks, benefits, and alternatives have been discussed and questions answered. Patient agrees to proceed with procedure.
--- NOTE | 2023-10-06 08:24 | ECG_ITS ---
Measurements Intervals [place] Rate: 94 P: 32 NV: 142 QRS: 15 QRSD: 79 T: 58 QT: 341 QTc: 427 Interpretive Statements SINUS RHYTHM DELAYED PRECORDIAL R/S TRANSITION NONSPECIFIC T-WAVE ABNORMALITY- HIGH LATERAL LEADS BORDERLINE ECG NO PREVIOUS ECG AVAILABLE FOR COMPARISON Electronically Signed On 10-06-2023 8:39:11 STEAMER OPERATOR by Tha Hayward D.O.
[2023-10-06] MEDS: LACTATED RINGERS 1,000 ML 30 ML IV CONT (08:30)
--- NOTE | 2023-10-06 08:35 | WPDANESEPPF ---
Anes - Initial Pre Proc Eval Procedure: Operation Date: 10/06/23 08:30 Proposed Procedures p Incision and Debridement Right Buttock with Wound Vac Placement(Right) - Reina Mendes MD Date/Time: 10/06/23 08:35 Surgeon: Luciano Armas MD Pre Op Diagnosis: Anemia,CONCEPCION Patient Data Age: 53 Gender: F Height: 1.63 m Weight: 88 kg Last Vital Signs Temp 98.8 F 10/06/23 06:00 Pulse 102 H 10/06/23 06:00 Resp 24 H 10/06/23 06:00 BP 125/77 10/06/23 06:00 Pulse Ox 99 10/06/23 06:00 O2 Del Method High Flow Therapy with Trach Collar 10/06/23 02:30 O2 Flow Rate 30 10/06/23 02:30 FiO2 40 10/06/23 02:30 Allergies Allergy/AdvReac Type Severity Reaction Status Date / Time No Known Allergies Allergy Verified 09/24/23 12:27 Home Medications Medication Instructions Recorded Confirmed Type Dakin's Solution 1 dose topical BID 09/24/23 09/24/23 History Jevity 1.2 Redd 75 ml feeding tube Q1H 09/24/23 09/24/23 History Miralax 17 g feeding tube Q12H PRN 09/24/23 09/24/23 History constipation. albuterol sulfate 2.5 mg/3 mL 2.5 mg inhalation Q4H PRN SOB 09/24/23 09/24/23 History (0.083 %) solution for nebulization amlodipine 5 tablet J-tube DAILY 09/24/23 09/24/23 History armodafinil 150 mg J-tube DAILY 09/24/23 09/24/23 History ascorbate calcium (vitamin C) 500 mg feeding tube DAILY 09/24/23 09/24/23 History famotidine 2.5 ml J-tube DAILY 09/24/23 09/24/23 History magnesium hydroxide 30 ml feeding tube Q24H PRN 09/24/23 09/24/23 History gastric secretions. scopolamine base 1 mg over 3 days 1 patch transdermal Q72H 09/24/23 09/24/23 History transdermal patch senna 5 ml J-tube QHS 09/24/23 09/24/23 History thiamine HCl (vitamin B1) 100 mg J-tube DAILY 09/24/23 09/24/23 History Laboratory Tests 10/05/23 10/05/23 10/05/23 05:53 11:38 18:19 WBC 8.9 K/mm3 (4.5-10.0) RBC 2.55 L M/mm3 (4.2-5.4) Hgb 7.7 L g/dL (12.0-15.0) Hct 25.8 L % (37.0-47.0) MCV 101.2 H D fl (80-100) MCH 30.2 pg (26-34) MCHC 29.8 L g/dl (32-36) RDW 15.9 H % (11.5-14.5) Plt Count 327 k/mm3 (150-375) MPV 10.8 H fl (7.4-10.4) Immature Gran % (Auto) 1.6 H % (0-0.5) Neut % (Auto) 79.6 H % (45.5-73.1) Lymph % (Auto) 10.9 L % (18.3-44.2) [place] % (Auto) 6.0 % (2.6-8.5) Eos % (Auto) 1.7 % (0-4.4) Baso % (Auto) 0.2 % (0.2-1.2) Lymph # (Auto) 0.97 K/mm3 (0.9-3.2) [place] # (Auto) 0.5 K/mm3 (0.1-0.6) Eos # (Auto) 0.2 K/mm3 (0-0.3) Baso # (Auto) 0.0 K/mm3 (0.0-0.1) Abs Immat Gran (auto) 0.14 H K/mm3 (0.00-0.031) Absolute Neuts (auto) 7.1 H K/mm3 (1.3-6.7) Absolute Nucleated RBC 0.0 K/mm3 (0.0-0.012) Nucleated RBC % 0.0 % (0.0-0.2) Sodium Potassium Chloride Carbon Dioxide Anion Gap BUN Creatinine Estim Creat Clear Calc Estimated GFR Glucose POC Capillary Glucose 95 mg/dl 94 mg/dl (65-105) (65-105) Calcium Total Bilirubin AST ALT Alkaline Phosphatase Total Protein Albumin 10/05/23 10/06/23 10/06/23 23:48 06:07 06:39 WBC 8.5 K/mm3 (4.5-10.0) RBC 2.29 L M/mm3 (4.2-5.4) Hgb 7.0 L g/dL (12.0-15.0) Hct 23.2 L % (37.0-47.0) MCV 101.3 H fl (80-100) MCH 30.6 pg (26-34) MCHC 30.2 L g/dl (32-36) RDW 15.9 H % (11.5-14.5) Plt Count 308 k/mm3 (150-375) MPV 10.6 H fl (7.4-10.4) Immature Gran % (Auto) 1.3 H % (0-0.5) Neut % (Auto) 77.1 H % (45.5-73.1) Lymph % (Auto) 13.8 L % (18.3-44.
--- NOTE | 2023-10-06 09:56 | W.PM.PROC2 ---
Procedure Note - Detailed Date of Procedure 10/06/23 Pre-op Diagnosis Stage IV sacral decubitus ulcer Post-op Diagnosis Same Procedure Performed debridement of stage IV sacral decubitus ulcer measuring 10 x 5 x 3.5 cm, washout, placement of VAC greater than 50 sq cm Surgeon Reina Mendes MD Anesthesia General Indications 53-year-old female with quadriplegia presenting with worsening stage IV sacral decubitus ulcer Findings 10 x 5 x 3.5 stage IV sacral decubitus ulcer Description of Procedure The patient was taken the operating room and placed in the lateral position. After adequate induction of general anesthesia, the patient was prepped and draped in the normal sterile fashion. A time-out was then done to verify the patient's identity, as well as the procedure being performed. I began by debriding away the necrotic tissue from the stage IV sacral ulcer. The necrotic tissue was noted to be confined to the dermis and subcutaneous tissue. The base of the wound did have some overlying fascia the looked to be healthy and viable. There was no signs or symptoms of active infection within the wound itself. The wound was debrided back to healthy bleeding tissue. Measuring of the wound status post debridement was 10 x 5 x 3.5 cm. I then gained hemostasis with the Bovie cautery. The wound was then extensively washed out. I then placed a VAC dressing in the wound. The patient tolerated the procedure well and will be sent to recovery room in stable condition. Estimated Blood Loss 25 Pathology None sent Complications No immediate complications Condition Stable Disposition PACU [facility] Billing Surgery - Charge Forward: Surgery Billing
[2023-10-06] MEDS: DORNASE ALFA INH SOLN 1 MG/ML 2.5 ML AMP 2.5 MG INHALATION ×2 (10:05→21:40)
--- NOTE | 2023-10-06 10:07 | PCRCNOTE ---
Patient was not given her 0800 neb treatment due to pt being in procedure at this time. RN informed. Will try to give pt neb treatment when she returns to the floor.
[2023-10-06 10:20] LABS: Glucose Point of Care 75 mg/dl (65-105)
--- NOTE | 2023-10-06 11:09 | PM.IMPN ---
Progress Note: A&P Assessment and Plan (1) Decubital ulcer: Code(s): L89.90 - Pressure ulcer of unspecified site, unspecified stage Status: Acute Assessment and Plan: Patient with decubitus ulcer present on admission. Discussed with wound care team. Strong odor and 80% necrotic. CT pelvis 09/25 showing no evidence of a deeper wound Gen surgery consult placed for debridement eval To the OR earlier today for debridement and wound vac placement (2) Dysphagia: Code(s): R13.10 - Dysphagia, unspecified Status: Acute Assessment and Plan: j-tube in place. Order enzymatic treatment to keep tube patent JTube remains clogged. Will discussed with surgery about options. She may need surgical replacement or may need to be transferred to have this replaced if unable to open. (3) CONCEPCION (acute kidney injury): Code(s): N17.9 - Acute kidney failure, unspecified Status: Acute Assessment and Plan: BUN 103 and Cr 2.9 on admission. Per family, baseline Cr 1.13 Neville has been replaced and draining well CT scan showing bilateral hydronephrosis and moderate diffuse bladder wall thickening c/w cystitis UA concerning for possible infection. Prot/Cr ratio 25g (and 8gm on repeat). TCK 73. Nephrology consulted and appreciate their input. Possibly pre-renal although has possibly ureteral obstruction from bladder wall thickening. Increased free water flushes and was on IVF Renal US showing no stones, masses or hydronephrosis Was Neville obstructed? UCx growing Klebsiella 50-100K. Repeat renal function has normalized Resolved. Continue to monitor (4) Hypernatremia: Code(s): E87.0 - Hyperosmolality and hypernatremia Status: Acute Assessment and Plan: Related to TF and increased insensible losses. Benson 78 but could be higher if she had normal renal function. Advanced water flushes Na normal now Resolved. Continue to monitor (5) Respiratory failure with hypoxia: Code(s): J96.91 - Respiratory failure, unspecified with hypoxia Status: Acute Assessment and Plan: Patient with chronic respiratory failure requiring trach. She normally on 5L O2 via trach collar. CXR showing bibasilar airspace disease Chest CT showing elevated right diaphragm and bilateral airspace disease felt to be atelectasis Trach changed out here Routine trach care with suctioning as needed. (6) AMS (altered mental status): Code(s): R41.82 - Altered mental status, unspecified Status: Acute Assessment and Plan: Patient brought to the ED for altered mental status. Probably metabolic encephalopathy related to above Resolved. Back to baseline Continue current treatment as above (7) Quadriplegia: Code(s): G82.50 - Quadriplegia, unspecified Status: Acute Assessment and Plan: Related to brain tumor and surgery Round the clock turning schedule Has a decubitus present on admission. Routine skin care As above (8) Megaloblastic anemia: Code(s): D53.1 - Other megaloblastic anemias, not elsewhere classified Status: Acute Assessment and Plan: Hgb 6.8 on admission. No baseline Hgb to compare but family states patient had an extensive workup and related to BM depression No evidence of acute blood loss CT Ch/A/P showing no etiology of blood loss. Stool guaiac negative. Not on anticoagulation on admission. No anemia evaluation performed prior to transfusion but Iron studies consistent with anemia of chronic disease. B12/folate normal. She was transfused on admission 2Units PRBC. hgb climbed to 7-8 range Monitor HH and transfuse as needed. (9) Hyperkalemia: Code(s): E87.5 - Hyperkalemia Status: Acute Assessment and Plan: Potassium mildly elevated at 5.4 felt related to the CONCEPCION. Cortisol level elevated at 36 and TSH elevated at 6.9. Potassium normal now Resolved. Continue to monitor.
[2023-10-06 11:32] LABS: Glucose Point of Care 66 mg/dl (65-105)
--- NOTE | 2023-10-06 11:32 | PC.NURSE ---
Pt's glucose in recovery was 75, rechecked on floor - result 66. Dr Monreal notified, to order hypoglycemic protocol & IV fluids. Awaiting final plan from general surgery regarding transfer to another facility for clogged Jtube. Tube is still clogged at this time.
[2023-10-06] MEDS: KCL 20 MEQ/D5/0.9% SOD CHL 1,000 ML 70 ML IV CONT (12:39)
[2023-10-06 14:16] LABS: Glucose Point of Care 78 mg/dl (65-105)
[2023-10-06 20:17] LABS: Glucose Point of Care 89 mg/dl (65-105)
[2023-10-06] MEDS: SOD HYPOCHLORITE 1/4 STRENGTH 473 ML 1 APPLIC TOPICAL (21:00)
[2023-10-06 21:17] LABS: Glucose Point of Care 73 mg/dl (65-105)
[2023-10-06] MEDS: ACETAMINOPHEN 650 MG SUPPOSITORY RECTAL (21:26)
[2023-10-06 23:58] LABS: Glucose Point of Care 119 mg/dl (65-105)
[2023-10-07] VITALS (14 sets, daily range): BP systolic 116–131; BP diastolic 61–64; PULSE 95–111; RESP 20–28; TEMP 36.8–38.2; O2SAT 93–100
[2023-10-07] MEDS: IPRATROPIUM BR 0.02% INH SOLN 0.5 MG/2.5 ML VIAL INHALATION ×4 (02:56→20:32)
[2023-10-07] MEDS: ALBUTEROL SULFATE NEB 2.5 MG/3 ML INH INHALATION ×4 (02:56→20:32)
[2023-10-07] MEDS: KCL 20 MEQ/D5/0.9% SOD CHL 1,000 ML 70 ML IV CONT (04:23)
[2023-10-07] MEDS: ACETAMINOPHEN 650 MG SUPPOSITORY RECTAL (05:33)
[2023-10-07 05:59] LABS: Glucose Point of Care 119 mg/dl (65-105)
[2023-10-07 07:30] LABS: Basophils Percent Auto 0.2 % (0.2-1.2); Eosinophils Absolute Auto 0.2 K/mm3 (0-0.3); Eosinophils Percent Auto 1.7 % (0-4.4); Hematocrit 23.9 % (37.0-47.0); Immature Granulocyte Absolute 0.17 K/mm3 (0.00-0.031); Lymphocytes Absolute Auto 1.23 K/mm3 (0.9-3.2); Lymphocytes Percent Auto 14.2 % (18.3-44.2); Mean Corpuscular HGB Conc 29.3 g/dl (32-36); Mean Corpuscular Hemoglobin 30.4 pg (26-34); Mean Corpuscular Volume 103.9 fl (80-100); Mean Platelet Volume 10.6 fl (7.4-10.4); Monocytes Absolute Auto 0.7 K/mm3 (0.1-0.6); Monocytes Percent Auto 7.7 % (2.6-8.5); Neutrophils Absolute Auto 6.4 K/mm3 (1.3-6.7); Neutrophils Percent Auto 74.2 % (45.5-73.1); Platelet Count Result 335 k/mm3 (150-375); White Blood Count 8.7 K/mm3 (4.5-10.0)
[2023-10-07 07:55] LABS: Lactic Acid Reflex 0.5 mmol/L (0.7-2.0)
[2023-10-07 07:57] LABS: Platelet Estimate Adequate (Adequate)
[2023-10-07 07:58] LABS: Hypochromasia 1+ (NORMAL); Schistocytes None Seen (NORMAL)
[2023-10-07 08:00] LABS: Alanine Aminotransferase 10 U/L (6-35); Albumin Level 2.7 g/dL (3.5-5.1); Alkaline Phosphatase 74 U/L (38-126); Anion Gap 4 mmol/L (8-16); Aspartate Amino Transferase 17 U/L (14-36); Bilirubin,Total 0.3 mg/dL (0.2-1.3); Blood Urea Nitrogen 22 mg/dL (7-17); Calcium 8.7 mg/dL (8.4-10.2); Carbon Dioxide 28 mmol/L (22-30); Chloride 110 mmol/L (98-107); Estimated CRCL calculation 67 ml/min; Estimated Glomerular Filt Rate > 60; Glucose 98 mg/dL (65-110); Potassium 4.5 mmol/L (3.4-5.0); Sodium 142 mmol/L (137-145)
[2023-10-07] MEDS: DORNASE ALFA INH SOLN 1 MG/ML 2.5 ML AMP 2.5 MG INHALATION ×2 (08:40→21:04)
[2023-10-07] MEDS: THIAMINE HCL 100 MG TABLET FEED TUBE (09:12)
[2023-10-07] MEDS: amLODIPine BESYLATE 5 MG TABLET FEED TUBE (09:12)
[2023-10-07] MEDS: ASCORBIC ACID 500 MG TABLET FEED TUBE (09:12)
[2023-10-07] MEDS: ENOXAPARIN 40 MG/0.4 ML SYRINGE SUB-Q (09:12)
[2023-10-07] MEDS: FAMOTIDINE 20 MG TABLET FEED TUBE (09:12)
[2023-10-07 10:08] LABS: Appearance Urine Cloudy (Clear); Bacteria Urine None Seen /hpf; Bilirubin Urine Negative (Negative); Blood Urine 2+ (Negative); Color Urine Yellow (Yellow); Glucose Urine UA Negative (Negative); Ketones Urine Negative (Negative); Leukocyte Esterase Ur Trace LEU/UL (Negative); Need Manual Microscopic Reviewed; Nitrate Urine Negative (Negative); Protein Urine 1+ mg/dL (Negative); Specific Grav Ur 1.014 (1.001-1.035); Squamous Epithelial Cell Urine None seen /hpf (Few); Urobilinogen Urine 0.2 mg/dL (<2.0); WBC Urine 21-50 /hpf; pH Urine 6.5 (5.0-9.0)
[2023-10-07 10:12] LABS: Add Urine Microscopic? YES
--- NOTE | 2023-10-07 10:35 | PCOTNOTE ---
Per RN, Patient had a wound vac placed yesterday for her sacral ulcer. Not to be disturbed. Patient also may be being transferred out to another facility this date.
--- NOTE | 2023-10-07 10:58 | WPDANESPN ---
Anes - Prog Note Post-Op Date/Time: 10/07/23 10:58 Vital Signs: Last Vital Signs Temp 38.2 C H 10/07/23 06:00 Pulse 110 H 10/07/23 09:09 Resp 20 10/07/23 09:09 BP 131/61 10/07/23 06:00 Pulse Ox 93 10/07/23 09:08 O2 Del Method High Flow Therapy with Trach Collar 10/07/23 09:08 O2 Flow Rate 30 10/07/23 09:08 FiO2 45 10/07/23 09:08 Pain Score (VAS): unable to assess-non verbal I/O: Intake & Output 10/06/23 10/07/23 10/07/23 23:59 07:59 15:59 Intake Total 1000 Output Total 600 600 Balance -600 400 Laboratory Tests 10/07/23 06:37 10/07/23 06:37 10/06/23 10/06/23 10/06/23 11:29 14:13 18:16 WBC RBC Hgb Hct MCV MCH MCHC RDW Plt Count MPV Immature Gran % (Auto) Neut % (Auto) Lymph % (Auto) [place] % (Auto) Eos % (Auto) Baso % (Auto) Lymph # (Auto) [place] # (Auto) Eos # (Auto) Baso # (Auto) Abs Immat Gran (auto) Absolute Neuts (auto) Absolute Nucleated RBC Nucleated RBC % Platelet Estimate Hypochromasia Schistocytes Sodium Potassium Chloride Carbon Dioxide Anion Gap BUN Creatinine Estim Creat Clear Calc Estimated GFR Glucose POC Capillary Glucose 66 78 73 Lactic Acid Calcium Total Bilirubin AST ALT Alkaline Phosphatase Total Protein Albumin Urine Color Urine Appearance Urine pH Ur Specific [place] Urine Protein Urine Glucose (UA) Urine Ketones Ur Blood (Man) Urine Nitrate Urine Bilirubin Urine Urobilinogen Add Ur Microanalysis Leukocyte Esterase Rfl Urine RBC Urine WBC Ur Squamous Epith Cells Urine Bacteria Urine Casts 10/06/23 10/06/23 10/07/23 19:48 23:54 04:52 WBC RBC Hgb Hct MCV MCH MCHC RDW Plt Count MPV Immature Gran % (Auto) Neut % (Auto) Lymph % (Auto) [place] % (Auto) Eos % (Auto) Baso % (Auto) Lymph # (Auto) [place] # (Auto) Eos # (Auto) Baso # (Auto) Abs Immat Gran (auto) Absolute Neuts (auto) Absolute Nucleated RBC Nucleated RBC % Platelet Estimate Hypochromasia Schistocytes Sodium Potassium Chloride Carbon Dioxide Anion Gap BUN Creatinine Estim Creat Clear Calc Estimated GFR Glucose POC Capillary Glucose 89 119 H 119 H Lactic Acid Calcium Total Bilirubin AST ALT Alkaline Phosphatase Total Protein Albumin Urine Color Urine Appearance Urine pH Ur Specific [place] Urine Protein Urine Glucose (UA) Urine Ketones Ur Blood (Man) Urine Nitrate Urine Bilirubin Urine Urobilinogen Add Ur Microanalysis Leukocyte Esterase Rfl Urine RBC Urine WBC Ur Squamous Epith Cells Urine Bacteria Urine Casts 10/07/23 10/07/23 06:37 09:43 WBC 8.7 RBC 2.30 L Hgb 7.0 L Hct 23.9 L MCV 103.9 H MCH 30.4 MCHC 29.3 L RDW 16.0 H Plt Count 335 MPV 10.6 H Immature Gran % (Auto) 2.0 H Neut % (Auto) 74.2 H Lymph % (Auto) 14.2 L [place] % (Auto) 7.7 Eos % (Auto) 1.7 Baso % (Auto) 0.2 Lymph # (Auto) 1.23 [place] # (Auto) 0.7 H Eos # (Auto) 0.2 Baso # (Auto) 0.0 Abs Immat Gran (auto) 0.17 H Absolute Neuts (auto) 6.4 Absolute Nucleated RBC 0.0 Nucleated RBC % 0.0 Platelet Estimate Adequate Hypochromasia 1+ Schistocytes None seen Sodium 142 Potassium 4.5 Chloride 110 H Carbon Dioxide 28 Anion Gap 4 L BUN 22 H Creatinine 0.90 Estim Creat Clear Calc 67 Estimated GFR > 60 Glucose 98 POC Capillary Glucose Lactic Acid 0.5 L Calcium 8.7 Total Bilirubin 0.3 AST 17 ALT 10 Alkaline Phosphatase 74 Total Protein 6.0 L Albumin 2.7 L Urine Color Yellow Urine Appearance Cloudy H Urine pH 6.5 Ur Specific [place] 1.014 Urine Protein 1+ H Ur
[2023-10-07 11:12] LABS: Glucose Point of Care 112 mg/dl (65-105)
--- NOTE | 2023-10-07 13:03 | PM.PNGS ---
Progress Note: A&P Assessment and Plan (1) Decubital ulcer: Code(s): L89.90 - Pressure ulcer of unspecified site, unspecified stage Status: Acute Assessment and Plan: S/p excisional debridement in the OR yesterday. Continue wound vac therapy. Frequent turning. Will plan to change the wound vac tomorrow. (2) Malfunctioning jejunostomy tube: Code(s): K94.13 - Enterostomy malfunction Status: Acute Assessment and Plan: J-tube now functioning and no longer clogged. Continue tube feeding per dietitian's recommendations. Plan I have discussed the patient's case and plan of care with Dr. Mendes. Subjective Subjective Date/Time Seen: 10/07/23 13:03 Post Op day: 1 (debridement of stage IV sacral decubitus ulcer measuring 10 x 5 x 3.5 cm, washout, placement of wound VAC) Interval history: Patient seen today with no family at the bedside. J-tube is unclogged and she currently has tube feedings resumed. No acute events per nursing. Noted that she had a temp of 100.4-100.8 last night and into this morning. Review of Systems Review of Systems: ROS unobtainable: Yes unobtainable due to medical condition Exam Const: General: comfortable, no acute distress and other (nonverbal at baseline) Limitations: physical limitations and other limitations Neck: Neck: tracheostomy present GI: Inspection: non-distended and other (Jejunostomy tube with tube feeding running) GI Palp: Yes Soft to palpation and No Guarding due to palpation present (GI) Auscultation: normal bowel sounds Other: sacral wound with wound vac in place and functioning well Objective Data Vital Signs Vital Signs: Vital Signs - 24 hr 10/06/23 14:30 10/06/23 14:37 10/06/23 16:00 Temperature 97.2 F L Pulse Rate 96 94 103 H Respiratory Rate 20 20 16 Blood Pressure 132/69 Pulse Oximetry 95 92 Oxygen Delivery High Flow Therapy with Tr Oxygen Flow Rate 30 Fraction of Inspired Oxygen 40 10/06/23 21:26 10/06/23 21:40 10/06/23 21:55 Temperature 100.4 F H Pulse Rate 108 H 103 H Respiratory Rate 20 20 Blood Pressure Pulse Oximetry Oxygen Delivery Oxygen Flow Rate Fraction of Inspired Oxygen 10/06/23 22:11 10/06/23 21:59 10/06/23 23:57 Temperature 100.4 F H 100.0 F H Pulse Rate 106 H 111 H Respiratory Rate 20 26 H Blood Pressure 129/68 Pulse Oximetry 95 93 Oxygen Delivery High Flow Therapy with Tr Oxygen Flow Rate 30 Fraction of Inspired Oxygen 40 10/07/23 02:54 10/07/23 03:08 10/07/23 05:00 Temperature 100.8 F H Pulse Rate 100 106 H 111 H Respiratory Rate 20 20 Blood Pressure Pulse Oximetry Oxygen Delivery Oxygen Flow Rate Fraction of Inspired Oxygen 10/07/23 05:33 10/07/23 06:00 10/07/23 09:08 Temperature 100.8 F H 100.8 F H Pulse Rate 111 H Respiratory Rate 28 H Blood Pressure 131/61 Pulse Oximetry 93 93 Oxygen Delivery High Flow Therapy with Tr Oxygen Flow Rate 30 Fraction of Inspired Oxygen 45 10/07/23 08:40 10/07/23 09:09 Temperature Pulse Rate 111 H 110 H Respiratory Rate 20 20 Blood Pressure Pulse Oximetry Oxygen Delivery Oxygen Flow Rate Fraction of Inspired Oxygen Intake/Output Intake/Output: Intake & Output 10/04/23 10/05/23 10/06/23 10/07/23 23:59 23:59 23:59 23:59 Intake Total 884 50 200 1050 Output Total 1650 1400 1100 600 Balance -766 -1350 -900 450 Meds/Results Medications: Active Medications Generic Name Dose Route Start Last Admin Trade Name Freq PRN Reason Stop Dose Admin Acetaminophen 650 mg 09/27/23 13:47 09/29/23 00:26 Acetaminophen 325 Mg Tablet FEED TUBE 650 mg Q6H PRN Administration Mild Pain (1-3) or Fever Acetaminophen 650 mg 10/06/23 20:51 10/07/23 05:33 Acetaminophen 650 Mg Suppository RECTAL 650 mg Q6H PRN Administration Mild Pain (1-3) or Fever Albuterol 2.5 mg 09/26/23 08:00 10/07/23 08:40 Albuterol Sulfate
--- NOTE | 2023-10-07 13:31 | PM.IMPN ---
Progress Note: A&P Assessment and Plan (1) Fever: Code(s): R50.9 - Fever, unspecified Status: Acute Assessment and Plan: Patient developed low grade fever overnight. BCx collected and started on Rocephin. Just finished 8 day course of Rocephin on 10/05/23 CXR clear Check UA. Follow up on cultures (2) Decubital ulcer: Code(s): L89.90 - Pressure ulcer of unspecified site, unspecified stage Status: Acute Assessment and Plan: Patient with decubitus ulcer present on admission. Discussed with wound care team. Strong odor and 80% necrotic. CT pelvis 09/25 showing no evidence of a deeper wound Gen surgery consult placed for debridement eval To the OR 10/07 for debridement and wound vac placement (3) Dysphagia: Code(s): R13.10 - Dysphagia, unspecified Status: Acute Assessment and Plan: Jtube in place. Order enzymatic treatment to keep tube patent JTube able to be unclogged. TF resumed (4) CONCEPCION (acute kidney injury): Code(s): N17.9 - Acute kidney failure, unspecified Status: Acute Assessment and Plan: BUN 103 and Cr 2.9 on admission. Per family, baseline Cr 1.13 Neville has been replaced and draining well CT scan showing bilateral hydronephrosis and moderate diffuse bladder wall thickening c/w cystitis UA concerning for possible infection. Prot/Cr ratio 25g (and 8gm on repeat). TCK 73. Nephrology consulted and appreciate their input. Possibly pre-renal although has possibly ureteral obstruction from bladder wall thickening. Increased free water flushes and was on IVF Renal US showing no stones, masses or hydronephrosis Was Neville obstructed? UCx growing Klebsiella 50-100K treated appropriately Repeat renal function has normalized Resolved. Continue to monitor (5) Hypernatremia: Code(s): E87.0 - Hyperosmolality and hypernatremia Status: Acute Assessment and Plan: Related to TF and increased insensible losses. Benson 78 but could be higher if she had normal renal function. Na normal now Resolved. Continue free water flushes at higher rate. Continue to monitor (6) Respiratory failure with hypoxia: Code(s): J96.91 - Respiratory failure, unspecified with hypoxia Status: Acute Assessment and Plan: Patient with chronic respiratory failure requiring trach. She normally on 5L O2 via trach collar. CXR showing bibasilar airspace disease Chest CT showing elevated right diaphragm and bilateral airspace disease felt to be atelectasis Trach changed out here Routine trach care with suctioning as needed. (7) AMS (altered mental status): Code(s): R41.82 - Altered mental status, unspecified Status: Acute Assessment and Plan: Patient brought to the ED for altered mental status. Probably metabolic encephalopathy related to above Resolved. Back to baseline Continue current treatment as above (8) Quadriplegia: Code(s): G82.50 - Quadriplegia, unspecified Status: Acute Assessment and Plan: Related to brain tumor and surgery Round the clock turning schedule Has a decubitus present on admission. Routine skin care As above (9) Megaloblastic anemia: Code(s): D53.1 - Other megaloblastic anemias, not elsewhere classified Status: Acute Assessment and Plan: Hgb 6.8 on admission. No baseline Hgb to compare but family states patient had an extensive workup and related to BM depression No evidence of acute blood loss CT Ch/A/P showing no etiology of blood loss. Stool guaiac negative. Not on anticoagulation on admission. No anemia evaluation performed prior to transfusion but Iron studies consistent with anemia of chronic disease. B12/folate normal. She was transfused on admission 2Units PRBC. hgb climbed to 7-8 range Monitor HH and transfuse as needed. (10) Hyperkalemia: Code(s): E87.5 - Hyperkalemia Status: Acute Asse
[2023-10-07 17:25] LABS: Glucose Point of Care 83 mg/dl (65-105)
[2023-10-07] MEDS: SENNOSIDES 8.8 MG/5 ML SYRUP FEED TUBE (21:05)
[2023-10-08] VITALS (17 sets, daily range): BP systolic 127–134; BP diastolic 55–72; PULSE 98–116; RESP 18–24; TEMP 36.6–37; O2SAT 87–99; BMI 11.0
[2023-10-08] MEDS: ALBUTEROL SULFATE NEB 2.5 MG/3 ML INH INHALATION ×4 (01:55→20:18)
[2023-10-08] MEDS: IPRATROPIUM BR 0.02% INH SOLN 0.5 MG/2.5 ML VIAL INHALATION ×4 (01:55→20:18)
[2023-10-08 05:44] LABS: Basophils Percent Auto 0.2 % (0.2-1.2); Eosinophils Absolute Auto 0.2 K/mm3 (0-0.3); Eosinophils Percent Auto 2.2 % (0-4.4); Hematocrit 24.6 % (37.0-47.0); Hemoglobin 7.2 g/dL (12.0-15.0); Immature Granulocyte Absolute 0.13 K/mm3 (0.00-0.031); Immature Granulocyte Percent A 1.3 % (0-0.5); Lymphocytes Absolute Auto 1.34 K/mm3 (0.9-3.2); Lymphocytes Percent Auto 13.4 % (18.3-44.2); Mean Corpuscular HGB Conc 29.3 g/dl (32-36); Mean Corpuscular Hemoglobin 29.8 pg (26-34); Mean Corpuscular Volume 101.7 fl (80-100); Mean Platelet Volume 10.2 fl (7.4-10.4); Monocytes Absolute Auto 0.7 K/mm3 (0.1-0.6); Monocytes Percent Auto 7.2 % (2.6-8.5); Neutrophils Absolute Auto 7.6 K/mm3 (1.3-6.7); Neutrophils Percent Auto 75.7 % (45.5-73.1); Platelet Count Result 337 k/mm3 (150-375); Red Blood Count 2.42 M/mm3 (4.2-5.4); Red Cell Distribution Width 15.7 % (11.5-14.5)
[2023-10-08 06:08] LABS: Alanine Aminotransferase 11 U/L (6-35); Albumin Level 2.8 g/dL (3.5-5.1); Alkaline Phosphatase 82 U/L (38-126); Anion Gap 5 mmol/L (8-16); Aspartate Amino Transferase 16 U/L (14-36); Bilirubin,Total 0.3 mg/dL (0.2-1.3); Blood Urea Nitrogen 23 mg/dL (7-17); Calcium 8.6 mg/dL (8.4-10.2); Carbon Dioxide 31 mmol/L (22-30); Chloride 107 mmol/L (98-107); Estimated CRCL calculation 61 ml/min; Estimated Glomerular Filt Rate 58; Glucose 106 mg/dL (65-110); Potassium 4.5 mmol/L (3.4-5.0); Sodium 143 mmol/L (137-145)
[2023-10-08 06:43] LABS: Anisocytosis 2+ (NORMAL); Hypochromasia 2+ (NORMAL); Schistocytes None Seen (NORMAL)
[2023-10-08] MEDS: DORNASE ALFA INH SOLN 1 MG/ML 2.5 ML AMP 2.5 MG INHALATION ×2 (07:33→20:20)
[2023-10-08] MEDS: FAMOTIDINE 20 MG TABLET FEED TUBE (08:18)
[2023-10-08] MEDS: ASCORBIC ACID 500 MG TABLET FEED TUBE (08:18)
[2023-10-08] MEDS: amLODIPine BESYLATE 5 MG TABLET FEED TUBE (08:18)
[2023-10-08] MEDS: THIAMINE HCL 100 MG TABLET FEED TUBE (08:18)
[2023-10-08] MEDS: SCOPOLAMINE 1 MG PATCH 1 PATCH TRANSDERM (08:38)
[2023-10-08] MEDS: ENOXAPARIN 40 MG/0.4 ML SYRINGE SUB-Q (08:38)
--- NOTE | 2023-10-08 09:19 | PM.IMPN ---
Progress Note: A&P Assessment and Plan (1) Fever: Code(s): R50.9 - Fever, unspecified Status: Acute Assessment and Plan: Patient developed low grade fever overnight after her debridement 10/06. BCx collected and started on Rocephin. Just finished 8 day course of Rocephin on 10/05/23 CXR clear but now having increasing secretions - trachitis? UA noted. UCx pending. BCx NGTD Check Sputum Cx from trach and RSV/Influenza/Covid PCR Follow up on cultures (2) Decubital ulcer: Code(s): L89.90 - Pressure ulcer of unspecified site, unspecified stage Status: Acute Assessment and Plan: Patient with decubitus ulcer present on admission that has strong odor and is 80% necrotic. CT pelvis 09/25 showing no evidence of a deeper wound Gen surgery consulted and patient taken to OR 10/06 for debridement and wound vac placement Appreciate GenSurgery input (3) Dysphagia: Code(s): R13.10 - Dysphagia, unspecified Status: Acute Assessment and Plan: Chronic dysphagia with Jtube in place. Enzymatic treatment available as needed to keep tube patent JTube able to be unclogged. TF resumed and advanced. Follow (4) CONCEPCION (acute kidney injury): Code(s): N17.9 - Acute kidney failure, unspecified Status: Acute Assessment and Plan: BUN 103 and Cr 2.9 on admission. Per family, baseline Cr 1.13 Neville has been replaced and draining well CT scan showing bilateral hydronephrosis and moderate diffuse bladder wall thickening c/w cystitis UA concerning for possible infection. Prot/Cr ratio 25g (and 8gm on repeat). TCK 73. Nephrology consulted and appreciate their input. Possibly pre-renal although has possibly ureteral obstruction from bladder wall thickening. Increased free water flushes and was on IVF Renal US showing no stones, masses or hydronephrosis Was Neville obstructed? UCx growing Klebsiella 50-100K treated appropriately Repeat renal function has normalized Resolved. Continue to monitor (5) Hypernatremia: Code(s): E87.0 - Hyperosmolality and hypernatremia Status: Acute Assessment and Plan: Related to TF and increased insensible losses. Benson 78 but could be higher if she had normal renal function. Na normal now Resolved. Continue free water flushes at higher rate. Continue to monitor (6) Respiratory failure with hypoxia: Code(s): J96.91 - Respiratory failure, unspecified with hypoxia Status: Acute Assessment and Plan: Patient with chronic respiratory failure requiring trach. She normally on 5L O2 via trach collar. CXR showing bibasilar airspace disease Chest CT showing elevated right diaphragm and bilateral airspace disease felt to be atelectasis Trach changed out here Repeat CXR was clear Routine trach care with suctioning as needed. (7) AMS (altered mental status): Code(s): R41.82 - Altered mental status, unspecified Status: Acute Assessment and Plan: Patient brought to the ED for altered mental status. Probably metabolic encephalopathy related to above Resolved. Back to baseline Continue current treatment as above (8) Quadriplegia: Code(s): G82.50 - Quadriplegia, unspecified Status: Acute Assessment and Plan: Related to brain tumor and surgery Round the clock turning schedule Has a decubitus present on admission. Routine skin care As above (9) Megaloblastic anemia: Code(s): D53.1 - Other megaloblastic anemias, not elsewhere classified Status: Acute Assessment and Plan: Hgb 6.8 on admission. No baseline Hgb to compare but family states patient had an extensive workup and related to BM depression No evidence of acute blood loss CT Ch/A/P showing no etiology of blood loss. Stool guaiac negative. Not on anticoagulation on admission. No anemia evaluation performed prior to transfusion but Iron studies consistent with anemia of chronic diseas
--- NOTE | 2023-10-08 09:59 | PC.NURSE ---
wound vac changed per epic ambulatory analysts's, pt tolerated well.
[2023-10-08 10:21] LABS: Influenza A QL RT-PCR Negative (Negative); Influenza B QL RT-PCR Negative (Negative); RSV RNA, RT-PCR Negative (Negative); SARS-CoV-2 RNA PCR Negative (Negative)
--- NOTE | 2023-10-08 10:41 | PCNFU ---
Nutrition Follow-Up Complete: Altered Nutrition Laboratory Values as related to hypernatremia as evidenced by Na 154. Goal: Na to correct WNL goal has been met. No new goal. Pt current nutrition is Jevity 1.2 at 75 ml/hr. Last recorded weight is 88 kg, no new weight to report. Recommend reweigh. Bowel Motility: +Bm reported 10/07 Labs Reviewed:BUN 23, Alb 2.8, Hgb 7.2,Hgb 24.6 Meds Noted:Lovenox, Senokot, Atrovent, Vit C, Thiamine, Pepcid Skin: Stage IV pressure ulcer-sacrum. Additional Notes: Tube had been clogged. Per nursing tube has been working and tube feedings of Jevity 1.2 are running at 75 ml/hr. Total nutrition: 1980 kcals/92 gms protein/1332 ml water. Flush 100 ml q 4 hours. Recommend adding Simón BID for wound healing due to stage IV pressure ulcer. Will continue to monitor weight, labs, skin, tube feeding, meds every Wednesday and Wednesday.
[2023-10-08 12:04] LABS: Glucose Point of Care 133 mg/dl (65-105)
[2023-10-08 18:29] LABS: Glucose Point of Care 125 mg/dl (65-105)
[2023-10-09] VITALS (26 sets, daily range): BP systolic 118–133; BP diastolic 62–75; PULSE 95–106; RESP 16–22; TEMP 36.4–37.4; O2SAT 95–100
[2023-10-09] MEDS: IPRATROPIUM BR 0.02% INH SOLN 0.5 MG/2.5 ML VIAL INHALATION ×4 (02:34→20:34)
[2023-10-09] MEDS: ALBUTEROL SULFATE NEB 2.5 MG/3 ML INH INHALATION ×4 (02:35→20:34)
[2023-10-09 02:55] LABS: Glucose Point of Care 128 mg/dl (65-105)
[2023-10-09 06:28] LABS: Basophils Percent Auto 0.1 % (0.2-1.2); Eosinophils Absolute Auto 0.3 K/mm3 (0-0.3); Eosinophils Percent Auto 2.7 % (0-4.4); Hematocrit 22.1 % (37.0-47.0); Immature Granulocyte Absolute 0.21 K/mm3 (0.00-0.031); Immature Granulocyte Percent A 2.3 % (0-0.5); Lymphocytes Absolute Auto 1.79 K/mm3 (0.9-3.2); Lymphocytes Percent Auto 19.3 % (18.3-44.2); Mean Corpuscular HGB Conc 29.4 g/dl (32-36); Mean Corpuscular Hemoglobin 30.2 pg (26-34); Mean Corpuscular Volume 102.8 fl (80-100); Monocytes Absolute Auto 0.7 K/mm3 (0.1-0.6); Neutrophils Absolute Auto 6.3 K/mm3 (1.3-6.7); Neutrophils Percent Auto 67.6 % (45.5-73.1); Platelet Count Result 320 k/mm3 (150-375); Red Blood Count 2.15 M/mm3 (4.2-5.4); Red Cell Distribution Width 15.8 % (11.5-14.5); White Blood Count 9.3 K/mm3 (4.5-10.0)
[2023-10-09 06:44] LABS: Alanine Aminotransferase 10 U/L (6-35); Albumin Level 2.6 g/dL (3.5-5.1); Alkaline Phosphatase 68 U/L (38-126); Anion Gap 5 mmol/L (8-16); Aspartate Amino Transferase 15 U/L (14-36); Bilirubin,Total 0.1 mg/dL (0.2-1.3); Blood Urea Nitrogen 25 mg/dL (7-17); Calcium 8.1 mg/dL (8.4-10.2); Carbon Dioxide 30 mmol/L (22-30); Chloride 108 mmol/L (98-107); Estimated CRCL calculation 75 ml/min; Estimated Glomerular Filt Rate > 60; Glucose 112 mg/dL (65-110); Potassium 4.2 mmol/L (3.4-5.0); Sodium 143 mmol/L (137-145)
[2023-10-09] MEDS: DORNASE ALFA INH SOLN 1 MG/ML 2.5 ML AMP 2.5 MG INHALATION ×2 (08:41→20:34)
[2023-10-09 08:42] LABS: Hemoglobin 6.5 g/dL (12.0-15.0)
[2023-10-09] MEDS: THIAMINE HCL 100 MG TABLET FEED TUBE (10:01)
[2023-10-09] MEDS: ENOXAPARIN 40 MG/0.4 ML SYRINGE SUB-Q (10:01)
[2023-10-09] MEDS: VANCOMYCIN 1,000 MG/NS 250 ML 1,000 MG/250 ML BAG 250 MG IVPB (10:02)
[2023-10-09] MEDS: VANCOMYCIN 1,250 MG/NS 250 ML 1,250 MG/250 ML BAG 166.67 MG IVPB (10:02)
[2023-10-09] MEDS: FAMOTIDINE 20 MG TABLET FEED TUBE (10:02)
[2023-10-09] MEDS: amLODIPine BESYLATE 5 MG TABLET FEED TUBE (10:02)
[2023-10-09] MEDS: ASCORBIC ACID 500 MG TABLET FEED TUBE (10:02)
[2023-10-09 11:20] LABS: Glucose Point of Care 114 mg/dl (65-105)
[2023-10-09] MEDS: SODIUM CHLORIDE 0.9% IV 250 ML 30 ML IV CONT (13:19)
--- NOTE | 2023-10-09 16:06 | PM.IMPN ---
Progress Note: A&P Assessment and Plan (1) Fever: Code(s): R50.9 - Fever, unspecified Status: Acute Assessment and Plan: Patient developed low grade fever overnight after her debridement 10/06. BCx collected and started on Rocephin. Just finished 8 day course of Rocephin on 10/05/23 CXR clear but now having increasing secretions - trachitis? RSV/Influenza/Covid PCR negative UA noted. UCx growing 100K Enterococcus BCx NGTD Sputum Cx not performed Follow up on urine culture results. Add Vanco (2) Decubital ulcer: Code(s): L89.90 - Pressure ulcer of unspecified site, unspecified stage Status: Acute Assessment and Plan: Patient with decubitus ulcer present on admission that has strong odor and is 80% necrotic. CT pelvis 09/25 showing no evidence of a deeper wound Gen surgery consulted and patient taken to OR 10/06 for debridement and wound vac placement Appreciate GenSurgery input (3) Dysphagia: Code(s): R13.10 - Dysphagia, unspecified Status: Acute Assessment and Plan: Chronic dysphagia with Jtube in place. Enzymatic treatment available as needed to keep tube patent JTube able to be unclogged. TF resumed and advanced. Follow (4) CONCEPCION (acute kidney injury): Code(s): N17.9 - Acute kidney failure, unspecified Status: Acute Assessment and Plan: BUN 103 and Cr 2.9 on admission. Per family, baseline Cr 1.13 Neville has been replaced and draining well CT scan showing bilateral hydronephrosis and moderate diffuse bladder wall thickening c/w cystitis UA concerning for possible infection. Prot/Cr ratio 25g (and 8gm on repeat). TCK 73. Nephrology consulted and appreciate their input. Possibly pre-renal although has possibly ureteral obstruction from bladder wall thickening. Increased free water flushes and was on IVF Renal US showing no stones, masses or hydronephrosis Was Neville obstructed? UCx growing Klebsiella 50-100K treated appropriately Repeat renal function has normalized Resolved. Continue to monitor (5) Hypernatremia: Code(s): E87.0 - Hyperosmolality and hypernatremia Status: Acute Assessment and Plan: Related to TF and increased insensible losses. Benson 78 but could be higher if she had normal renal function. Na normal now Resolved. Continue free water flushes at higher rate. Continue to monitor (6) Respiratory failure with hypoxia: Code(s): J96.91 - Respiratory failure, unspecified with hypoxia Status: Acute Assessment and Plan: Patient with chronic respiratory failure requiring trach. She normally on 5L O2 via trach collar. CXR showing bibasilar airspace disease Chest CT showing elevated right diaphragm and bilateral airspace disease felt to be atelectasis Trach changed out here Repeat CXR was clear Routine trach care with suctioning as needed. (7) AMS (altered mental status): Code(s): R41.82 - Altered mental status, unspecified Status: Acute Assessment and Plan: Patient brought to the ED for altered mental status. Probably metabolic encephalopathy related to above Resolved. Back to baseline Continue current treatment as above (8) Quadriplegia: Code(s): G82.50 - Quadriplegia, unspecified Status: Acute Assessment and Plan: Related to brain tumor and surgery Round the clock turning schedule Has a decubitus present on admission. Routine skin care As above (9) Megaloblastic anemia: Code(s): D53.1 - Other megaloblastic anemias, not elsewhere classified Status: Acute Assessment and Plan: Hgb 6.8 on admission. No baseline Hgb to compare but family states patient had an extensive workup and related to BM depression No evidence of acute blood loss CT Ch/A/P showing no etiology of blood loss. Stool guaiac negative. Not on anticoagulation on admission. No anemia evaluation performed prior to transfusion but Iron studi
[2023-10-09 17:43] LABS: Glucose Point of Care 110 mg/dl (65-105)
[2023-10-09] MEDS: CYANOCOBALAMIN INJ 1,000 MCG/ML VIAL 1000 MCG IM (17:52)
[2023-10-09] MEDS: EPOETIN ALFA-EPBX 2,000 UNITS/ML VIAL 2000 UNITS SUB-Q (17:52)
[2023-10-09] MEDS: FERROUS SULFATE LIQUID 325 MG/7.4 ML ELIXIR 220 MG FEED TUBE (18:04)
--- NOTE | 2023-10-09 21:32 | PC.NURSE ---
per propellant charge loader James, respiratory therapist changed patient trach cannula this shift.
[2023-10-10] VITALS (18 sets, daily range): BP systolic 126–130; BP diastolic 69–71; PULSE 66–110; RESP 18–24; TEMP 36.3–37; O2SAT 97–100
[2023-10-10 00:28] LABS: Glucose Point of Care 119 mg/dl (65-105)
[2023-10-10] MEDS: VANCOMYCIN 1,250 MG/NS 250 ML 1,250 MG/250 ML BAG 166.67 MG IVPB (02:02)
[2023-10-10] MEDS: ALBUTEROL SULFATE NEB 2.5 MG/3 ML INH INHALATION ×4 (02:10→21:30)
[2023-10-10] MEDS: IPRATROPIUM BR 0.02% INH SOLN 0.5 MG/2.5 ML VIAL INHALATION ×4 (02:10→21:30)
[2023-10-10 06:06] LABS: Glucose Point of Care 124 mg/dl (65-105)
[2023-10-10 07:22] LABS: Alanine Aminotransferase 14 U/L (6-35); Albumin Level 3.2 g/dL (3.5-5.1); Alkaline Phosphatase 83 U/L (38-126); Anion Gap 8 mmol/L (8-16); Aspartate Amino Transferase 22 U/L (14-36); Bilirubin,Total 0.4 mg/dL (0.2-1.3); Blood Urea Nitrogen 27 mg/dL (7-17); Calcium 8.8 mg/dL (8.4-10.2); Carbon Dioxide 29 mmol/L (22-30); Chloride 106 mmol/L (98-107); Estimated CRCL calculation 85 ml/min; Estimated Glomerular Filt Rate > 60; Glucose 128 mg/dL (65-110); Potassium 4.7 mmol/L (3.4-5.0); Sodium 143 mmol/L (137-145)
[2023-10-10] MEDS: FAMOTIDINE 20 MG TABLET FEED TUBE (08:29)
[2023-10-10] MEDS: amLODIPine BESYLATE 5 MG TABLET FEED TUBE (08:29)
[2023-10-10] MEDS: ASCORBIC ACID 500 MG TABLET FEED TUBE (08:29)
[2023-10-10] MEDS: THIAMINE HCL 100 MG TABLET FEED TUBE (08:29)
[2023-10-10] MEDS: FERROUS SULFATE LIQUID 325 MG/7.4 ML ELIXIR 220 MG FEED TUBE ×2 (08:30→16:54)
[2023-10-10] MEDS: ENOXAPARIN 40 MG/0.4 ML SYRINGE SUB-Q (08:30)
[2023-10-10] MEDS: DORNASE ALFA INH SOLN 1 MG/ML 2.5 ML AMP 2.5 MG INHALATION ×2 (08:45→21:30)
[2023-10-10 09:06] LABS: Basophils Absolute Auto 0.1 K/mm3 (0.0-0.1); Basophils Percent Auto 0.5 % (0.2-1.2); Eosinophils Absolute Auto 0.3 K/mm3 (0-0.3); Eosinophils Percent Auto 2.9 % (0-4.4); Hematocrit 25.9 % (37.0-47.0); Hemoglobin 7.9 g/dL (12.0-15.0); Immature Granulocyte Absolute 0.46 K/mm3 (0.00-0.031); Immature Granulocyte Percent A 4.1 % (0-0.5); Lymphocytes Absolute Auto 1.37 K/mm3 (0.9-3.2); Lymphocytes Percent Auto 12.2 % (18.3-44.2); Mean Corpuscular HGB Conc 30.5 g/dl (32-36); Mean Corpuscular Hemoglobin 29.8 pg (26-34); Mean Corpuscular Volume 97.7 fl (80-100); Mean Platelet Volume 9.9 fl (7.4-10.4); Monocytes Absolute Auto 0.7 K/mm3 (0.1-0.6); Monocytes Percent Auto 5.9 % (2.6-8.5); Neutrophils Absolute Auto 8.3 K/mm3 (1.3-6.7); Neutrophils Percent Auto 74.4 % (45.5-73.1); Platelet Count Result 309 k/mm3 (150-375); Red Blood Count 2.65 M/mm3 (4.2-5.4); Red Cell Distribution Width 16.6 % (11.5-14.5); White Blood Count 11.2 K/mm3 (4.5-10.0)
[2023-10-10 11:57] LABS: Glucose Point of Care 142 mg/dl (65-105)
--- NOTE | 2023-10-10 18:00 | PM.IMPN ---
Progress Note: A&P Assessment and Plan (1) Fever: Code(s): R50.9 - Fever, unspecified Status: Acute Assessment and Plan: Patient developed low grade fever overnight after her debridement 10/06. BCx collected and started on Rocephin. Just finished 8 day course of Rocephin on 10/05/23 CXR clear 10/07 but now having increasing secretions. RSV/Influenza/Covid PCR negative UA noted. UCx growing 100K Enterococcus senstive to Ampicillin. BCx NGTD Sputum Cx not performed WBC higher today. Change to Augmentin. Follow WBC (2) Respiratory failure with hypoxia: Code(s): J96.91 - Respiratory failure, unspecified with hypoxia Status: Acute Assessment and Plan: Patient with chronic respiratory failure requiring trach. She normally on 5L O2 via trach collar. CXR showing bibasilar airspace disease Chest CT showing elevated right diaphragm and bilateral airspace disease felt to be atelectasis Trach changed out here Repeat CXR 10/07 was clear Having more secretions. Continue suction. Check CXR given the hypoxia. Routine trach care with suctioning as needed. (3) Decubital ulcer: Code(s): L89.90 - Pressure ulcer of unspecified site, unspecified stage Status: Acute Assessment and Plan: Patient with decubitus ulcer present on admission that has strong odor and is 80% necrotic. CT pelvis 09/25 showing no evidence of a deeper wound Gen surgery consulted and patient taken to OR 10/06 for debridement and wound vac placement Continue current wound care Appreciate GenSurgery input (4) Dysphagia: Code(s): R13.10 - Dysphagia, unspecified Status: Acute Assessment and Plan: Chronic dysphagia with Jtube in place. Enzymatic treatment available as needed to keep tube patent JTube able to be unclogged. TF resumed and advanced. Follow (5) CONCEPCION (acute kidney injury): Code(s): N17.9 - Acute kidney failure, unspecified Status: Acute Assessment and Plan: BUN 103 and Cr 2.9 on admission. Per family, baseline Cr 1.13 Neville has been replaced and draining well CT scan showing bilateral hydronephrosis and moderate diffuse bladder wall thickening c/w cystitis UA concerning for possible infection. Prot/Cr ratio 25g (and 8gm on repeat). TCK 73. Nephrology consulted and appreciate their input. Possibly pre-renal although has possibly ureteral obstruction from bladder wall thickening. Increased free water flushes and was on IVF Renal US showing no stones, masses or hydronephrosis Was Neville obstructed? UCx growing Klebsiella 50-100K treated appropriately Repeat renal function has normalized Resolved. Continue to monitor (6) Hypernatremia: Code(s): E87.0 - Hyperosmolality and hypernatremia Status: Acute Assessment and Plan: Related to TF and increased insensible losses. Benson 78 but could be higher if she had normal renal function. Na normal now Resolved. Continue free water flushes at higher rate. Continue to monitor (7) AMS (altered mental status): Code(s): R41.82 - Altered mental status, unspecified Status: Acute Assessment and Plan: Patient brought to the ED for altered mental status. Probably metabolic encephalopathy related to above Resolved. Back to baseline Continue current treatment as above (8) Quadriplegia: Code(s): G82.50 - Quadriplegia, unspecified Status: Acute Assessment and Plan: Related to brain tumor and surgery Round the clock turning schedule Has a decubitus present on admission. Routine skin care As above (9) Megaloblastic anemia: Code(s): D53.1 - Other megaloblastic anemias, not elsewhere classified Status: Acute Assessment and Plan: Hgb 6.8 on admission. No baseline Hgb to compare but family states patient had an extensive workup and related to BM depression No evidence of acute blood loss CT Ch/A/P showing no etiology of blood los
[2023-10-10 18:08] LABS: Glucose Point of Care 103 mg/dl (65-105)
[2023-10-10] MEDS: SENNOSIDES 8.8 MG/5 ML SYRUP FEED TUBE (21:14)
[2023-10-10] MEDS: AMOXICILLIN/CLAVULANATE K 875-125 MG TAB 1 TABLET PO (21:14)
[2023-10-11] VITALS (20 sets, daily range): BP systolic 128–136; BP diastolic 73–75; PULSE 91–112; RESP 20–24; TEMP 36.6–37.7; O2SAT 99–100
[2023-10-11 00:17] LABS: Glucose Point of Care 109 mg/dl (65-105)
[2023-10-11] MEDS: ALBUTEROL SULFATE NEB 2.5 MG/3 ML INH INHALATION ×4 (03:36→20:49)
[2023-10-11] MEDS: IPRATROPIUM BR 0.02% INH SOLN 0.5 MG/2.5 ML VIAL INHALATION ×4 (03:36→20:49)
[2023-10-11 07:01] LABS: Basophils Percent Auto 0.3 % (0.2-1.2); Eosinophils Absolute Auto 0.3 K/mm3 (0-0.3); Eosinophils Percent Auto 3.2 % (0-4.4); Hematocrit 27.1 % (37.0-47.0); Hemoglobin 8.2 g/dL (12.0-15.0); Immature Granulocyte Absolute 0.24 K/mm3 (0.00-0.031); Immature Granulocyte Percent A 2.3 % (0-0.5); Lymphocytes Absolute Auto 1.35 K/mm3 (0.9-3.2); Lymphocytes Percent Auto 13.1 % (18.3-44.2); Mean Corpuscular HGB Conc 30.3 g/dl (32-36); Mean Corpuscular Volume 99.3 fl (80-100); Monocytes Absolute Auto 0.6 K/mm3 (0.1-0.6); Monocytes Percent Auto 5.8 % (2.6-8.5); Neutrophils Absolute Auto 7.8 K/mm3 (1.3-6.7); Neutrophils Percent Auto 75.3 % (45.5-73.1); Platelet Count Result 325 k/mm3 (150-375); Red Blood Count 2.73 M/mm3 (4.2-5.4); Red Cell Distribution Width 16.2 % (11.5-14.5); White Blood Count 10.3 K/mm3 (4.5-10.0)
[2023-10-11 07:10] LABS: Alanine Aminotransferase 16 U/L (6-35); Albumin Level 2.8 g/dL (3.5-5.1); Alkaline Phosphatase 74 U/L (38-126); Anion Gap 4 mmol/L (8-16); Aspartate Amino Transferase 24 U/L (14-36); Bilirubin,Total 0.2 mg/dL (0.2-1.3); Blood Urea Nitrogen 27 mg/dL (7-17); Calcium 8.6 mg/dL (8.4-10.2); Carbon Dioxide 33 mmol/L (22-30); Chloride 104 mmol/L (98-107); Estimated CRCL calculation 98 ml/min; Estimated Glomerular Filt Rate > 60; Glucose 119 mg/dL (65-110); Potassium 4.4 mmol/L (3.4-5.0); Sodium 141 mmol/L (137-145)
[2023-10-11] MEDS: SCOPOLAMINE 1 MG PATCH 1 PATCH TRANSDERM (08:19)
[2023-10-11] MEDS: amLODIPine BESYLATE 5 MG TABLET FEED TUBE (08:19)
[2023-10-11] MEDS: FAMOTIDINE 20 MG TABLET FEED TUBE (08:20)
[2023-10-11] MEDS: FERROUS SULFATE LIQUID 325 MG/7.4 ML ELIXIR 220 MG FEED TUBE ×2 (08:20→16:50)
[2023-10-11] MEDS: AMOXICILLIN/CLAVULANATE K 875-125 MG TAB 1 TABLET PO ×2 (08:20→21:21)
[2023-10-11] MEDS: ASCORBIC ACID 500 MG TABLET FEED TUBE (08:20)
[2023-10-11] MEDS: THIAMINE HCL 100 MG TABLET FEED TUBE (08:20)
[2023-10-11] MEDS: ENOXAPARIN 40 MG/0.4 ML SYRINGE SUB-Q (08:20)
[2023-10-11] MEDS: DORNASE ALFA INH SOLN 1 MG/ML 2.5 ML AMP 2.5 MG INHALATION ×2 (09:24→20:49)
[2023-10-11 12:08] LABS: Glucose Point of Care 81 mg/dl (65-105)
--- NOTE | 2023-10-11 12:40 | PM.PNGS ---
Progress Note: A&P Assessment and Plan (1) Decubital ulcer: Code(s): L89.90 - Pressure ulcer of unspecified site, unspecified stage Status: Acute Assessment and Plan: S/p excisional debridement on 10/06/23. Dr. Mendes evaluated the sacral decubitus ulcer with wound care nurses this morning and wound VAC therapy was stopped. Switch to Dakin's dressing changes. (2) Malfunctioning jejunostomy tube: Code(s): K94.13 - Enterostomy malfunction Status: Acute Assessment and Plan: J-tube dislodged. Tube feedings held. I notified Dr. Mendes who will attempt replacing with a Neville catheter. Plan I have discussed the patient's case and plan of care with Dr. Mendes. Subjective Subjective Date/Time Seen: 10/11/23 12:00 Interval history: Nursing called me this morning reporting that her jejunostomy tube is dislodged. I then came up directly to assess the tube. Nursing reports that the jejunostomy tube was in place during their morning assessment. She then came back to the bedside and was turning the patient and cleaning her up. They did lift her in bed as well. She did not notice that the jejunostomy tube got tugged or pulled on, but after turning her is when she noticed that the balloon looked deflated and was outside of the skin. She then stopped the tube feeding and called. Earlier in the morning, wound care nurses and Dr. Mendes came to assess the patient's wound. I was not present for that evaluation. They removed the wound vac and changed her to Dakin's dressing changes. Review of Systems Review of Systems: ROS unobtainable: Yes unobtainable due to medical condition Exam GI: Inspection: non-distended GI Palp: Yes Soft to palpation Auscultation: normal bowel sounds Other: left-sided jejunostomy tube dislodged with the deflated balloon about 3 cm out of the skin, I taped this in place and called Dr. Mendes Objective Data Vital Signs Vital Signs: Vital Signs - 24 hr 10/10/23 14:00 10/10/23 15:29 10/10/23 16:00 Temperature 98.6 F Pulse Rate 108 H 99 100 Respiratory Rate 19 24 H Blood Pressure 126/69 Pulse Oximetry 98 Oxygen Delivery Oxygen Flow Rate Fraction of Inspired Oxygen 10/10/23 21:30 10/10/23 21:45 10/10/23 20:00 Temperature Pulse Rate 90 99 99 Respiratory Rate 23 H 21 H 21 H Blood Pressure Pulse Oximetry 98 Oxygen Delivery High Flow Therapy with Tr Oxygen Flow Rate 5 Fraction of Inspired Oxygen 39 10/10/23 22:00 10/11/23 03:37 10/11/23 03:48 Temperature 98.3 F Pulse Rate 96 94 96 Respiratory Rate 22 H 22 H 21 H Blood Pressure 130/71 Pulse Oximetry 99 Oxygen Delivery Oxygen Flow Rate Fraction of Inspired Oxygen 10/10/23 20:00 10/11/23 00:00 10/11/23 04:00 Temperature Pulse Rate 100 93 99 Respiratory Rate Blood Pressure Pulse Oximetry Oxygen Delivery Oxygen Flow Rate Fraction of Inspired Oxygen 10/11/23 06:00 10/11/23 09:16 10/11/23 09:23 Temperature 98 F Pulse Rate 100 95 95 Respiratory Rate 24 H 20 20 Blood Pressure 128/73 Pulse Oximetry 100 99 Oxygen Delivery High Flow Therapy with Tr Oxygen Flow Rate 30 Fraction of Inspired Oxygen 40 10/11/23 09:51 10/11/23 08:20 10/11/23 08:00 Temperature Pulse Rate 105 H 98 Respiratory Rate 22 H Blood Pressure Pulse Oximetry 100 Oxygen Delivery High Flow Therapy with Tr Oxygen Flow Rate 30 Fraction of Inspired Oxygen 40 Intake/Output Intake/Output: Intake & Output 10/08/23 10/09/23 10/10/23 10/11/23 23:59 23:59 23:59 23:59 Intake Total 50 3275 5200 1087 Output Total 1250 1300 1950 1325 Balance -1200 1975 3250 -238 Meds/Results Medications: Active Medications Generic Name Dose Route Start Last Admin Trade Name Freq PRN Reason Stop Dose Admin Acetaminophen 650 mg 09/27/23 13:47 09/29/23 00:26 Acetaminophen 325 Mg Tablet FEED TUBE 650 mg Q6H PRN Administration Mild
--- NOTE | 2023-10-11 14:26 | W.PM.PROC2 ---
Procedure Note - Detailed Date of Procedure 10/11/23 Pre-op Diagnosis quadriplegia, displaced jejunostomy tube Post-op Diagnosis Same Procedure Performed replacement displaced jejunostomy tube Surgeon Reina Mendes MD Anesthesia None Indications The patient is a 53-year-old female with multiple medical issues stemming from previous brain surgery that is now quadriplegic and requires jejunostomy feeding tube. The patient was found to have displaced jejunostomy tube by nursing earlier today. Findings Displaced left upper quadrant previously placed jejunostomy tube Description of Procedure The patient was placed in the supine position. The area was prepped and draped in normal sterile fashion. A time-out was done done to verify the patient's identity, as well as the procedure being performed. I began by completely the displaced jejunostomy tube. I was then able to examine the previous tract. This was noted to be dry and seemingly intact. I then placed the jejunostomy tube back into the tract. The tube was noted to go in easily. I was able to advance the tube to the previous depth as evidenced by the unmoved button. I then reinsufflated the balloon with 2-3 cc of normal saline. Upon pulling back on the tube, it was noted to be secured within the tract. I was then able to easily flush normal saline into the tube. A contrast x-ray was taken through the tube and confirmed that the jejunostomy tube was in good position. The tube was secured in place and sterile dressing was placed. Estimated Blood Loss 0 Pathology None sent Complications No immediate complications Condition Stable Disposition Floor [facility] [place] Surgery - Charge Forward: Surgery Billing
--- NOTE | 2023-10-11 15:03 | PM.IMPN ---
Progress Note: A&P Assessment and Plan (1) Fever: Code(s): R50.9 - Fever, unspecified Status: Acute Assessment and Plan: Patient developed low grade fever overnight after her debridement 10/06. BCx collected and started on Rocephin. Just finished 8 day course of Rocephin on 10/05/23 CXR clear 10/07 but now having increasing secretions. RSV/Influenza/Covid PCR negative UA noted. UCx growing 100K Enterococcus senstive to Ampicillin. BCx NGTD Sputum Cx not performed WBC better today. Continue Augmentin. Follow WBC. Repeat culture (2) Respiratory failure with hypoxia: Code(s): J96.91 - Respiratory failure, unspecified with hypoxia Status: Acute Assessment and Plan: Patient with chronic respiratory failure requiring trach. She normally on 5L O2 via trach collar. CXR showing bibasilar airspace disease Chest CT showing elevated right diaphragm and bilateral airspace disease felt to be atelectasis Trach changed out here Repeat CXR 10/07 was clear; CXR 10/10 showing atelectasis Having more secretions. Continue suction. Routine trach care with suctioning as needed. (3) Decubital ulcer: Code(s): L89.90 - Pressure ulcer of unspecified site, unspecified stage Status: Acute Assessment and Plan: Patient with decubitus ulcer present on admission that has strong odor and is 80% necrotic. CT pelvis 09/25 showing no evidence of a deeper wound Gen surgery consulted and patient taken to OR 10/06 for debridement and wound vac placement More necrotic tissue so wound vac off and using dressing changes with Dakins. Continue current wound care Appreciate GenSurgery input (4) Dysphagia: Code(s): R13.10 - Dysphagia, unspecified Status: Acute Assessment and Plan: Chronic dysphagia with Jtube in place. Enzymatic treatment available as needed to keep tube patent JTube able to be unclogged. TF resumed and advanced. JTube out slightly. Now tube advanced and placement confirmed. Follow (5) CONCEPCION (acute kidney injury): Code(s): N17.9 - Acute kidney failure, unspecified Status: Acute Assessment and Plan: BUN 103 and Cr 2.9 on admission. Per family, baseline Cr 1.13 Neville has been replaced and draining well CT scan showing bilateral hydronephrosis and moderate diffuse bladder wall thickening c/w cystitis UA concerning for possible infection. Prot/Cr ratio 25g (and 8gm on repeat). TCK 73. Nephrology consulted and appreciate their input. Possibly pre-renal although has possibly ureteral obstruction from bladder wall thickening. Increased free water flushes and was on IVF Renal US showing no stones, masses or hydronephrosis Was Neville obstructed? UCx growing Klebsiella 50-100K treated appropriately Repeat renal function has normalized Resolved. Continue to monitor (6) Hypernatremia: Code(s): E87.0 - Hyperosmolality and hypernatremia Status: Acute Assessment and Plan: Related to TF and increased insensible losses. Benson 78 but could be higher if she had normal renal function. Na normal now Resolved. Continue free water flushes at higher rate. Continue to monitor (7) AMS (altered mental status): Code(s): R41.82 - Altered mental status, unspecified Status: Acute Assessment and Plan: Patient brought to the ED for altered mental status. Probably metabolic encephalopathy related to above Resolved. Back to baseline Continue current treatment as above (8) Quadriplegia: Code(s): G82.50 - Quadriplegia, unspecified Status: Acute Assessment and Plan: Related to brain tumor and surgery Round the clock turning schedule Has a decubitus present on admission. Routine skin care As above (9) Megaloblastic anemia: Code(s): D53.1 - Other megaloblastic anemias, not elsewhere classified Status: Acute Assessment and Plan: Hgb 6.8 on admission. No baseline Hgb to compare b
[2023-10-11 18:13] LABS: Glucose Point of Care 114 mg/dl (65-105)
[2023-10-11] MEDS: SOD HYPOCHLORITE 1/4 STRENGTH 473 ML 1 APPLIC TOPICAL (21:22)
[2023-10-12] VITALS (18 sets, daily range): BP systolic 123–125; BP diastolic 71–77; PULSE 64–107; RESP 20–24; TEMP 36.5–37.2; O2SAT 95–100
[2023-10-12] MEDS: ALBUTEROL SULFATE NEB 2.5 MG/3 ML INH INHALATION ×4 (01:41→21:07)
[2023-10-12] MEDS: IPRATROPIUM BR 0.02% INH SOLN 0.5 MG/2.5 ML VIAL INHALATION ×4 (01:42→21:08)
[2023-10-12 04:17] LABS: Glucose Point of Care 115 mg/dl (65-105)
[2023-10-12 06:11] LABS: Glucose Point of Care 114 mg/dl (65-105)
[2023-10-12 07:07] LABS: Basophils Percent Auto 0.3 % (0.2-1.2); Eosinophils Absolute Auto 0.2 K/mm3 (0-0.3); Eosinophils Percent Auto 1.7 % (0-4.4); Hemoglobin 8.5 g/dL (12.0-15.0); Immature Granulocyte Absolute 0.25 K/mm3 (0.00-0.031); Immature Granulocyte Percent A 2.2 % (0-0.5); Lymphocytes Absolute Auto 1.24 K/mm3 (0.9-3.2); Lymphocytes Percent Auto 11.1 % (18.3-44.2); Mean Corpuscular HGB Conc 30.4 g/dl (32-36); Mean Corpuscular Volume 98.9 fl (80-100); Monocytes Absolute Auto 0.7 K/mm3 (0.1-0.6); Neutrophils Absolute Auto 8.8 K/mm3 (1.3-6.7); Neutrophils Percent Auto 78.7 % (45.5-73.1); Platelet Count Result 321 k/mm3 (150-375); Red Blood Count 2.83 M/mm3 (4.2-5.4); Red Cell Distribution Width 15.9 % (11.5-14.5); White Blood Count 11.1 K/mm3 (4.5-10.0)
[2023-10-12 07:22] LABS: Alanine Aminotransferase 23 U/L (6-35); Albumin Level 2.8 g/dL (3.5-5.1); Alkaline Phosphatase 78 U/L (38-126); Anion Gap 6 mmol/L (8-16); Aspartate Amino Transferase 25 U/L (14-36); Bilirubin,Total 0.3 mg/dL (0.2-1.3); Blood Urea Nitrogen 26 mg/dL (7-17); Calcium 8.5 mg/dL (8.4-10.2); Carbon Dioxide 32 mmol/L (22-30); Chloride 102 mmol/L (98-107); Estimated CRCL calculation 85 ml/min; Estimated Glomerular Filt Rate > 60; Glucose 123 mg/dL (65-110); Potassium 4.7 mmol/L (3.4-5.0); Sodium 140 mmol/L (137-145)
[2023-10-12] MEDS: DORNASE ALFA INH SOLN 1 MG/ML 2.5 ML AMP 2.5 MG INHALATION ×2 (07:55→21:14)
[2023-10-12] MEDS: ENOXAPARIN 40 MG/0.4 ML SYRINGE SUB-Q (10:40)
[2023-10-12] MEDS: amLODIPine BESYLATE 5 MG TABLET FEED TUBE (10:40)
[2023-10-12] MEDS: FAMOTIDINE 20 MG TABLET FEED TUBE (10:40)
[2023-10-12] MEDS: AMOXICILLIN/CLAVULANATE K 875-125 MG TAB 1 TABLET PO ×2 (10:40→22:16)
[2023-10-12] MEDS: ASCORBIC ACID 500 MG TABLET FEED TUBE (10:40)
[2023-10-12] MEDS: THIAMINE HCL 100 MG TABLET FEED TUBE (10:40)
[2023-10-12] MEDS: FERROUS SULFATE LIQUID 325 MG/7.4 ML ELIXIR 220 MG FEED TUBE ×2 (10:41→17:43)
[2023-10-12] MEDS: SOD HYPOCHLORITE 1/4 STRENGTH 473 ML 1 APPLIC TOPICAL ×2 (10:42→22:16)
--- NOTE | 2023-10-12 10:52 | PCNFU ---
Nutrition Follow-Up Complete: Altered Nutrition Laboratory Values as related to hypernatremia as evidenced by Na 154. Goal:Meet estimated needs Pt is meeting goal, continue with current goal. Pt current nutrition is NPO / TF: Jevity 1.2 @ 75ml/hr. Nutrition recommendation: continue with current plan of care Last recorded weight is 88 kg. Bowel Motility: +BM 10/12 Labs Reviewed: Hgb:8.5, HCT:28, Alb:2.8, BUN:26, Glu:123 Meds Noted: miralax, lovenox Skin: Sacrum stage IV, unstageable to buttocks Additional Notes: Pt continues on a tube feeding, tolerating well. Total nutrition: 1980 kcals/92 gms protein/1332 ml water. Flush 100 ml q 4 hours. Noted recommendation fo NANCY BID for wound healing, no orders. Continue to recommend NANCY BID. Will continue to monitor weight, labs, skin, tube feeding, meds every Wednesday and Wednesday.
[2023-10-12 11:39] LABS: Glucose Point of Care 107 mg/dl (65-105)
--- NOTE | 2023-10-12 15:22 | PM.IMPN ---
Progress Note: A&P Assessment and Plan (1) Fever: Code(s): R50.9 - Fever, unspecified Status: Acute Assessment and Plan: Patient developed low grade fever overnight after her debridement 10/06. BCx collected and started on Rocephin. Just finished 8 day course of Rocephin on 10/05/23 CXR clear 10/07 but now having increasing secretions. RSV/Influenza/Covid PCR negative UA noted. UCx growing 100K Enterococcus sensitive to Ampicillin. BCx NGTD Sputum Cx not performed; Repeat sputum pending WBC about the same Continue Augmentin. (2) Respiratory failure with hypoxia: Code(s): J96.91 - Respiratory failure, unspecified with hypoxia Status: Acute Assessment and Plan: Patient with chronic respiratory failure requiring trach. She normally on 5L O2 via trach collar. CXR showing bibasilar airspace disease Chest CT showing elevated right diaphragm and bilateral airspace disease felt to be atelectasis Trach changed out here Repeat CXR 10/07 was clear; CXR 10/10 showing atelectasis Routine trach care with suctioning as needed. (3) Decubital ulcer: Code(s): L89.90 - Pressure ulcer of unspecified site, unspecified stage Status: Acute Assessment and Plan: Patient with decubitus ulcer present on admission that has strong odor and is 80% necrotic. CT pelvis 09/25 showing no evidence of a deeper wound Gen surgery consulted and patient taken to OR 10/06 for debridement and wound vac placement More necrotic tissue so wound vac off and using dressing changes with Dakins. Continue current wound care Appreciate GenSurgery input (4) Dysphagia: Code(s): R13.10 - Dysphagia, unspecified Status: Acute Assessment and Plan: Chronic dysphagia with Jtube in place. Enzymatic treatment available as needed to keep tube patent JTube able to be unclogged. TF resumed and advanced. JTube was accidently pulled out slightly on 10/11. JTube advanced and ballon inflated and secured. Contrast study ensured placement. TF resumed and advanced to goal. She is tolerating this well. Follow (5) CONCEPCION (acute kidney injury): Code(s): N17.9 - Acute kidney failure, unspecified Status: Acute Assessment and Plan: BUN 103 and Cr 2.9 on admission. Per family, baseline Cr 1.13 Neville has been replaced and draining well CT scan showing bilateral hydronephrosis and moderate diffuse bladder wall thickening c/w cystitis UA concerning for possible infection. Prot/Cr ratio 25g (and 8gm on repeat). TCK 73. Nephrology consulted and appreciate their input. Possibly pre-renal although has possibly ureteral obstruction from bladder wall thickening. Increased free water flushes and was on IVF Renal US showing no stones, masses or hydronephrosis Was Neville obstructed? UCx growing Klebsiella 50-100K treated appropriately Repeat renal function has normalized Resolved. Continue to monitor (6) Hypernatremia: Code(s): E87.0 - Hyperosmolality and hypernatremia Status: Acute Assessment and Plan: Related to TF and increased insensible losses. Benson 78 but could be higher if she had normal renal function. Na normal now Resolved. Continue free water flushes at higher rate. Continue to monitor (7) AMS (altered mental status): Code(s): R41.82 - Altered mental status, unspecified Status: Acute Assessment and Plan: Patient brought to the ED for altered mental status. Probably metabolic encephalopathy related to above Resolved. Back to baseline Continue current treatment as above (8) Quadriplegia: Code(s): G82.50 - Quadriplegia, unspecified Status: Acute Assessment and Plan: Related to brain tumor and surgery Round the clock turning schedule Has a decubitus present on admission. Routine skin care As above (9) Megaloblastic anemia: Code(s): D53.1 - Other megaloblastic anemias, not elsewhere classified Statu
[2023-10-12 18:03] LABS: Glucose Point of Care 108 mg/dl (65-105)
--- NOTE | 2023-10-12 18:53 | PC.NURSE ---
SHANIA pt awareness. Pt has tube feeding going at goal rate of 75. Pt had bm today. Dressing saturated. Dressing changed. Pt tolerated well. Pt unable to express needs. Pt does not appear to be in any distress. Pt vital signs and appearance/demeanor monitored closely for any signs of changes in status. Pt suctioned multiple times throughout the last few days. Pt secretions continue to be green, thick, and occasionally stringy, MD aware. Pt will continue to be monitored for any changes.
[2023-10-13] VITALS (20 sets, daily range): BP systolic 119–134; BP diastolic 71–79; PULSE 90–108; RESP 18–24; TEMP 36.8–38.3; O2SAT 97–100
[2023-10-13 00:40] LABS: Glucose Point of Care 130 mg/dl (65-105)
[2023-10-13] MEDS: IPRATROPIUM BR 0.02% INH SOLN 0.5 MG/2.5 ML VIAL INHALATION ×4 (02:59→20:53)
[2023-10-13] MEDS: ALBUTEROL SULFATE NEB 2.5 MG/3 ML INH INHALATION ×4 (02:59→20:53)
[2023-10-13 06:48] LABS: Basophils Percent Auto 0.2 % (0.2-1.2); Eosinophils Absolute Auto 0.3 K/mm3 (0-0.3); Eosinophils Percent Auto 2.7 % (0-4.4); Hematocrit 26.5 % (37.0-47.0); Immature Granulocyte Absolute 0.22 K/mm3 (0.00-0.031); Lymphocytes Absolute Auto 1.45 K/mm3 (0.9-3.2); Lymphocytes Percent Auto 13.3 % (18.3-44.2); Mean Corpuscular HGB Conc 30.2 g/dl (32-36); Mean Corpuscular Hemoglobin 29.9 pg (26-34); Mean Corpuscular Volume 98.9 fl (80-100); Mean Platelet Volume 10.1 fl (7.4-10.4); Monocytes Absolute Auto 0.7 K/mm3 (0.1-0.6); Monocytes Percent Auto 6.8 % (2.6-8.5); Neutrophils Absolute Auto 8.2 K/mm3 (1.3-6.7); Platelet Count Result 311 k/mm3 (150-375); Red Blood Count 2.68 M/mm3 (4.2-5.4); Red Cell Distribution Width 15.7 % (11.5-14.5); White Blood Count 10.9 K/mm3 (4.5-10.0)
[2023-10-13 07:00] LABS: Alanine Aminotransferase 26 U/L (6-35); Albumin Level 2.7 g/dL (3.5-5.1); Alkaline Phosphatase 67 U/L (38-126); Anion Gap 5 mmol/L (8-16); Aspartate Amino Transferase 26 U/L (14-36); Bilirubin,Total 0.3 mg/dL (0.2-1.3); Blood Urea Nitrogen 24 mg/dL (7-17); Calcium 8.3 mg/dL (8.4-10.2); Carbon Dioxide 33 mmol/L (22-30); Chloride 101 mmol/L (98-107); Estimated CRCL calculation 98 ml/min; Estimated Glomerular Filt Rate > 60; Glucose 98 mg/dL (65-110); Potassium 4.5 mmol/L (3.4-5.0); Sodium 139 mmol/L (137-145)
[2023-10-13] MEDS: DORNASE ALFA INH SOLN 1 MG/ML 2.5 ML AMP 2.5 MG INHALATION ×2 (07:56→20:53)
[2023-10-13 07:59] LABS: Glucose Point of Care 110 mg/dl (65-105)
--- NOTE | 2023-10-13 09:07 | P.PNIM_ITS ---
Progress Note: A&P Assessment and Plan (1) Fever: Code(s): R50.9 - Fever, unspecified Status: Acute Assessment and Plan: Patient developed low grade fever overnight after her debridement 10/06. BCx collected and started on Rocephin. Just finished 8 day course of Rocephin on 10/05/23 CXR clear 10/07 but now having increasing secretions. RSV/Influenza/Covid PCR negative UA noted. UCx growing 100K Enterococcus sensitive to Ampicillin. BCx NGTD Sputum Cx not performed; Repeat sputum pending WBC about the same Continue Augmentin. (2) Respiratory failure with hypoxia: Code(s): J96.91 - Respiratory failure, unspecified with hypoxia Status: Acute Assessment and Plan: Patient with chronic respiratory failure requiring trach. She normally on 5L O2 via trach collar. CXR showing bibasilar airspace disease Chest CT showing elevated right diaphragm and bilateral airspace disease felt to be atelectasis Trach changed out here Repeat CXR 10/07 was clear; CXR 10/10 showing atelectasis Routine trach care with suctioning as needed. (3) Decubital ulcer: Code(s): L89.90 - Pressure ulcer of unspecified site, unspecified stage Status: Acute Assessment and Plan: Patient with decubitus ulcer present on admission that has strong odor and is 80% necrotic. CT pelvis 09/25 showing no evidence of a deeper wound Gen surgery consulted and patient taken to OR 10/06 for debridement and wound vac placement More necrotic tissue so wound vac off and using dressing changes with Dakins. Continue current wound care Appreciate GenSurgery input (4) Dysphagia: Code(s): R13.10 - Dysphagia, unspecified Status: Acute Assessment and Plan: Chronic dysphagia with Jtube in place. Enzymatic treatment available as needed to keep tube patent JTube able to be unclogged. TF resumed and advanced. JTube was accidently pulled out slightly on 10/11. JTube advanced and ballon inflated and secured. Contrast study ensured placement. TF resumed and advanced to goal. She is tolerating this well. Follow (5) CONCEPCION (acute kidney injury): Code(s): N17.9 - Acute kidney failure, unspecified Status: Acute Assessment and Plan: BUN 103 and Cr 2.9 on admission. Per family, baseline Cr 1.13 Neville has been replaced and draining well CT scan showing bilateral hydronephrosis and moderate diffuse bladder wall thickening c/w cystitis UA concerning for possible infection. Prot/Cr ratio 25g (and 8gm on repeat). TCK 73. Nephrology consulted and appreciate their input. Possibly pre-renal although has possibly ureteral obstruction from bladder wall thickening. Increased free water flushes and was on IVF Renal US showing no stones, masses or hydronephrosis Was Neville obstructed? UCx growing Klebsiella 50-100K treated appropriately Repeat renal function has normalized Resolved. Continue to monitor (6) Hypernatremia: Code(s): E87.0 - Hyperosmolality and hypernatremia Status: Acute Assessment and Plan: Related to TF and increased insensible losses. Benson 78 but could be higher if she had normal renal function. Na normal now Resolved. Continue free water flushes at higher rate. Continue to monitor (7) AMS (altered mental status): Code(s): R41.82 - Altered mental status, unspecified Status: Acute Assessment and Plan: Patient brought to the ED for altered mental status. Probably metabolic encephalopathy related to above Resolved. Back to baseline
[2023-10-13] MEDS: AMOXICILLIN/CLAVULANATE K 875-125 MG TAB 1 TABLET PO ×2 (10:16→20:40)
[2023-10-13] MEDS: ASCORBIC ACID 500 MG TABLET FEED TUBE (10:16)
[2023-10-13] MEDS: ENOXAPARIN 40 MG/0.4 ML SYRINGE SUB-Q (10:16)
[2023-10-13] MEDS: THIAMINE HCL 100 MG TABLET FEED TUBE (10:16)
[2023-10-13] MEDS: FAMOTIDINE 20 MG TABLET FEED TUBE (10:16)
[2023-10-13] MEDS: FERROUS SULFATE LIQUID 325 MG/7.4 ML ELIXIR 220 MG FEED TUBE ×2 (10:16→17:18)
[2023-10-13] MEDS: amLODIPine BESYLATE 5 MG TABLET FEED TUBE (10:16)
[2023-10-13] MEDS: SOD HYPOCHLORITE 1/4 STRENGTH 473 ML 1 APPLIC TOPICAL ×2 (10:17→20:40)
[2023-10-13 11:31] LABS: Glucose Point of Care 107 mg/dl (65-105)
[2023-10-13 18:04] LABS: Glucose Point of Care 120 mg/dl (65-105)
[2023-10-13] MEDS: fentaNYL CITRATE INJ (*CRX) 100 MCG/2 ML VIAL 12.5 MCG IV PUSH (20:39)
[2023-10-13] MEDS: SENNOSIDES 8.8 MG/5 ML SYRUP FEED TUBE (20:39)
[2023-10-13] MEDS: ACETAMINOPHEN ELIXIR 325 MG/10.15 ML UDC 650 MG FEED TUBE (22:10)
[2023-10-13 23:20] LABS: Glucose Point of Care 113 mg/dl (65-105)
[2023-10-14] VITALS (20 sets, daily range): BP systolic 108–122; BP diastolic 54–65; PULSE 91–113; RESP 8–22; TEMP 36.5–37.5; O2SAT 97–100
[2023-10-14] MEDS: ALBUTEROL SULFATE NEB 2.5 MG/3 ML INH INHALATION ×4 (02:20→20:37)
[2023-10-14] MEDS: IPRATROPIUM BR 0.02% INH SOLN 0.5 MG/2.5 ML VIAL INHALATION ×4 (02:20→20:37)
[2023-10-14 05:27] LABS: Glucose Point of Care 128 mg/dl (65-105)
[2023-10-14 06:34] LABS: Basophils Percent Auto 0.1 % (0.2-1.2); Eosinophils Absolute Auto 0.3 K/mm3 (0-0.3); Eosinophils Percent Auto 2.4 % (0-4.4); Hematocrit 24.9 % (37.0-47.0); Hemoglobin 7.6 g/dL (12.0-15.0); Immature Granulocyte Absolute 0.15 K/mm3 (0.00-0.031); Immature Granulocyte Percent A 1.4 % (0-0.5); Lymphocytes Percent Auto 12.4 % (18.3-44.2); Mean Corpuscular HGB Conc 30.5 g/dl (32-36); Mean Corpuscular Hemoglobin 29.8 pg (26-34); Mean Corpuscular Volume 97.6 fl (80-100); Mean Platelet Volume 10.2 fl (7.4-10.4); Monocytes Absolute Auto 0.7 K/mm3 (0.1-0.6); Neutrophils Percent Auto 76.7 % (45.5-73.1); Platelet Count Result 300 k/mm3 (150-375); Red Blood Count 2.55 M/mm3 (4.2-5.4); Red Cell Distribution Width 15.5 % (11.5-14.5); White Blood Count 10.5 K/mm3 (4.5-10.0)
[2023-10-14 06:45] LABS: Alanine Aminotransferase 29 U/L (6-35); Albumin Level 2.7 g/dL (3.5-5.1); Alkaline Phosphatase 66 U/L (38-126); Anion Gap 5 mmol/L (8-16); Aspartate Amino Transferase 28 U/L (14-36); Bilirubin,Total 0.4 mg/dL (0.2-1.3); Blood Urea Nitrogen 27 mg/dL (7-17); Calcium 8.2 mg/dL (8.4-10.2); Carbon Dioxide 33 mmol/L (22-30); Chloride 98 mmol/L (98-107); Estimated CRCL calculation 98 ml/min; Estimated Glomerular Filt Rate > 60; Glucose 115 mg/dL (65-110); Potassium 4.4 mmol/L (3.4-5.0); Sodium 136 mmol/L (137-145)
[2023-10-14] MEDS: DORNASE ALFA INH SOLN 1 MG/ML 2.5 ML AMP 2.5 MG INHALATION ×2 (07:31→20:39)
[2023-10-14 07:59] LABS: Glucose Point of Care 118 mg/dl (65-105)
[2023-10-14] MEDS: ENOXAPARIN 40 MG/0.4 ML SYRINGE SUB-Q (09:00)
[2023-10-14] MEDS: FERROUS SULFATE LIQUID 325 MG/7.4 ML ELIXIR 220 MG FEED TUBE ×2 (09:00→17:43)
[2023-10-14] MEDS: THIAMINE HCL 100 MG TABLET FEED TUBE (09:00)
[2023-10-14] MEDS: ASCORBIC ACID 500 MG TABLET FEED TUBE (09:01)
[2023-10-14] MEDS: amLODIPine BESYLATE 5 MG TABLET FEED TUBE (09:01)
[2023-10-14] MEDS: SCOPOLAMINE 1 MG PATCH 1 PATCH TRANSDERM (09:01)
[2023-10-14] MEDS: FAMOTIDINE 20 MG TABLET FEED TUBE (09:16)
[2023-10-14 11:49] LABS: Glucose Point of Care 122 mg/dl (65-105)
[2023-10-14 16:32] LABS: Glucose Point of Care 79 mg/dl (65-105)
[2023-10-14] MEDS: SOD HYPOCHLORITE 1/4 STRENGTH 473 ML 1 APPLIC TOPICAL (17:43)
--- NOTE | 2023-10-14 18:03 | P.PNIM_ITS ---
Progress Note: A&P Assessment and Plan (1) Fever: Code(s): R50.9 - Fever, unspecified Status: Acute Assessment and Plan: Patient developed low grade fever overnight after her debridement 10/06. BCx collected and started on Rocephin. Just finished 8 day course of Rocephin on 10/05/23 CXR clear 10/07 but now having increasing secretions. RSV/Influenza/Covid PCR negative UA noted. UCx growing 100K Enterococcus sensitive to Ampicillin. BCx NGTD Sputum Cx not performed; Repeat sputum ordered WBC about the same 10/14: repeat sputum cx positive for pseudomonas, consider cipro if patient develops fevers, completed course of augmentin 10/13 (2) Respiratory failure with hypoxia: Code(s): J96.91 - Respiratory failure, unspecified with hypoxia Status: Acute Assessment and Plan: Patient with chronic respiratory failure requiring trach. She normally on 5L O2 via trach collar. CXR showing bibasilar airspace disease Chest CT showing elevated right diaphragm and bilateral airspace disease felt to be atelectasis Trach changed out here Repeat CXR 10/07 was clear; CXR 10/10 showing atelectasis Routine trach care with suctioning as needed. (3) Decubital ulcer: Code(s): L89.90 - Pressure ulcer of unspecified site, unspecified stage Status: Acute Assessment and Plan: Patient with decubitus ulcer present on admission that has strong odor and is 80% necrotic. CT pelvis 09/25 showing no evidence of a deeper wound Gen surgery consulted and patient taken to OR 10/06 for debridement and wound vac placement More necrotic tissue so wound vac off and using dressing changes with Dakins. Continue current wound care Appreciate GenSurgery input (4) Dysphagia: Code(s): R13.10 - Dysphagia, unspecified Status: Acute Assessment and Plan: Chronic dysphagia with Jtube in place. Enzymatic treatment available as needed to keep tube patent JTube able to be unclogged. TF resumed and advanced. JTube was accidently pulled out slightly on 10/11. JTube advanced and ballon inflated and secured. Contrast study ensured placement. TF resumed and advanced to goal. She is tolerating this well. Follow (5) CONCEPCION (acute kidney injury): Code(s): N17.9 - Acute kidney failure, unspecified Status: Acute Assessment and Plan: BUN 103 and Cr 2.9 on admission. Per family, baseline Cr 1.13 Neville has been replaced and draining well CT scan showing bilateral hydronephrosis and moderate diffuse bladder wall thickening c/w cystitis UA concerning for possible infection. Prot/Cr ratio 25g (and 8gm on repeat). TCK 73. Nephrology consulted and appreciate their input. Possibly pre-renal although has possibly ureteral obstruction from bladder wall thickening. Increased free water flushes and was on IVF Renal US showing no stones, masses or hydronephrosis Was Neville obstructed? UCx growing Klebsiella 50-100K treated appropriately Repeat renal function has normalized Resolved. Continue to monitor (6) Hypernatremia: Code(s): E87.0 - Hyperosmolality and hypernatremia Status: Acute Assessment and Plan: Related to TF and increased insensible losses. Benson 78 but could be higher if she had normal renal function. Na normal now Resolved. Continue free water flushes at higher rate. Continue to monitor (7) AMS (altered mental status): Code(s): R41.82 - Altered mental status, unspecified Status: Acute Assessment and Plan: Patient brought to the ED
[2023-10-14] MEDS: SENNOSIDES 8.8 MG/5 ML SYRUP FEED TUBE (22:06)
[2023-10-15] VITALS (9 sets, daily range): BP systolic 113; BP diastolic 68; PULSE 91–97; RESP 20–22; TEMP 37; O2SAT 96–99
[2023-10-15 00:28] LABS: Glucose Point of Care 116 mg/dl (65-105)
[2023-10-15] MEDS: ALBUTEROL SULFATE NEB 2.5 MG/3 ML INH INHALATION ×2 (03:00→09:56)
[2023-10-15] MEDS: IPRATROPIUM BR 0.02% INH SOLN 0.5 MG/2.5 ML VIAL INHALATION ×2 (03:00→09:56)
[2023-10-15] MEDS: SOD HYPOCHLORITE 1/4 STRENGTH 473 ML 1 APPLIC TOPICAL ×2 (05:00→08:49)
[2023-10-15 06:54] LABS: Basophils Percent Auto 0.3 % (0.2-1.2); Eosinophils Absolute Auto 0.3 K/mm3 (0-0.3); Eosinophils Percent Auto 2.7 % (0-4.4); Hematocrit 26.9 % (37.0-47.0); Hemoglobin 7.7 g/dL (12.0-15.0); Immature Granulocyte Absolute 0.18 K/mm3 (0.00-0.031); Immature Granulocyte Percent A 1.8 % (0-0.5); Lymphocytes Absolute Auto 1.13 K/mm3 (0.9-3.2); Lymphocytes Percent Auto 11.2 % (18.3-44.2); Mean Corpuscular HGB Conc 28.6 g/dl (32-36); Mean Corpuscular Hemoglobin 30.6 pg (26-34); Mean Corpuscular Volume 106.7 fl (80-100); Mean Platelet Volume 10.4 fl (7.4-10.4); Monocytes Absolute Auto 0.6 K/mm3 (0.1-0.6); Monocytes Percent Auto 6.1 % (2.6-8.5); Neutrophils Absolute Auto 7.9 K/mm3 (1.3-6.7); Neutrophils Percent Auto 77.9 % (45.5-73.1); Platelet Count Result 302 k/mm3 (150-375); Red Blood Count 2.52 M/mm3 (4.2-5.4); Red Cell Distribution Width 15.7 % (11.5-14.5); White Blood Count 10.1 K/mm3 (4.5-10.0)
[2023-10-15 07:08] LABS: Alanine Aminotransferase 26 U/L (6-35); Alkaline Phosphatase 62 U/L (38-126); Anion Gap 9 mmol/L (8-16); Aspartate Amino Transferase 30 U/L (14-36); Bilirubin,Total 0.5 mg/dL (0.2-1.3); Blood Urea Nitrogen 28 mg/dL (7-17); Calcium 8.5 mg/dL (8.4-10.2); Carbon Dioxide 29 mmol/L (22-30); Chloride 97 mmol/L (98-107); Estimated CRCL calculation 115 ml/min; Estimated Glomerular Filt Rate > 60; Glucose 112 mg/dL (65-110); Potassium 4.5 mmol/L (3.4-5.0); Sodium 135 mmol/L (137-145)
[2023-10-15 08:04] LABS: Macrocytosis 1+ (NORMAL); Platelet Estimate Adequate (Adequate); Schistocytes None Seen (NORMAL)
[2023-10-15 08:15] LABS: Glucose Point of Care 104 mg/dl (65-105)
[2023-10-15] MEDS: ENOXAPARIN 40 MG/0.4 ML SYRINGE SUB-Q (08:48)
[2023-10-15] MEDS: FERROUS SULFATE LIQUID 325 MG/7.4 ML ELIXIR 220 MG FEED TUBE (08:48)
[2023-10-15] MEDS: amLODIPine BESYLATE 5 MG TABLET FEED TUBE (08:49)
[2023-10-15] MEDS: FAMOTIDINE 20 MG TABLET FEED TUBE (08:49)
[2023-10-15] MEDS: THIAMINE HCL 100 MG TABLET FEED TUBE (08:49)
[2023-10-15] MEDS: ASCORBIC ACID 500 MG TABLET FEED TUBE (08:49)
[2023-10-15] MEDS: DORNASE ALFA INH SOLN 1 MG/ML 2.5 ML AMP 2.5 MG INHALATION (09:56)
--- NOTE | 2023-10-15 10:36 | PCNFU ---
Nutrition Follow-Up Complete: Altered Nutrition Laboratory Values as related to hypernatremia as evidenced by Na 154. Goal: Na to correct WNL - progressing. Pt current nutrition is Jevity 1.2 @ goal rate 75 ml/h Nutrition recommendation: Last recorded weight is 88 kg. Bowel Motility: +6 Bms 10/13/23 Labs Reviewed: Hgb 7.7, Hct 26.9, Alb 3.0, Na 135, BUN 28, Cre 0.5, Glu 112 Meds Noted: Lovenox, Atrovent, Vit C Skin: Stage IV sacrum Additional Notes: J-tube in place and functioning. Tolerating tube feedings well. Awaiting placement. Will continue to monitor weight, labs, skin, tube feeding, meds every Wednesday and Wednesday.
--- NOTE | 2023-10-22 13:36 | PM.DS ---
DS: Admitting Diagnosis Discharge Date 10/15/23 Admitting Diagnosis Altered mental status DS: Discharge Diagnosis Discharge Diagnosis (1) Fever: Code(s): R50.9 - Fever, unspecified Status: Acute Assessment and Plan: Patient developed low grade fever overnight after her debridement 10/06. BCx collected and started on Rocephin. Just finished 8 day course of Rocephin on 10/05/23 CXR clear 10/07 but now having increasing secretions. RSV/Influenza/Covid PCR negative UA noted. UCx growing 100K Enterococcus sensitive to Ampicillin. BCx NGTD Sputum Cx not performed; Repeat sputum ordered WBC about the same 10/14: repeat sputum cx positive for pseudomonas, consider cipro if patient develops fevers, completed course of augmentin 10/13 (2) Respiratory failure with hypoxia: Code(s): J96.91 - Respiratory failure, unspecified with hypoxia Status: Acute Assessment and Plan: Patient with chronic respiratory failure requiring trach. She normally on 5L O2 via trach collar. CXR showing bibasilar airspace disease Chest CT showing elevated right diaphragm and bilateral airspace disease felt to be atelectasis Trach changed out here Repeat CXR 10/07 was clear; CXR 10/10 showing atelectasis Routine trach care with suctioning as needed. (3) Decubital ulcer: Code(s): L89.90 - Pressure ulcer of unspecified site, unspecified stage Status: Acute Assessment and Plan: Patient with decubitus ulcer present on admission that has strong odor and is 80% necrotic. CT pelvis 09/25 showing no evidence of a deeper wound Gen surgery consulted and patient taken to OR 10/06 for debridement and wound vac placement More necrotic tissue so wound vac off and using dressing changes with Dakins. Continue current wound care Appreciate GenSurgery input (4) Dysphagia: Code(s): R13.10 - Dysphagia, unspecified Status: Acute Assessment and Plan: Chronic dysphagia with Jtube in place. Enzymatic treatment available as needed to keep tube patent JTube able to be unclogged. TF resumed and advanced. JTube was accidently pulled out slightly on 10/11. JTube advanced and ballon inflated and secured. Contrast study ensured placement. TF resumed and advanced to goal. She is tolerating this well. Follow (5) CONCEPCION (acute kidney injury): Code(s): N17.9 - Acute kidney failure, unspecified Status: Acute Assessment and Plan: BUN 103 and Cr 2.9 on admission. Per family, baseline Cr 1.13 Neville has been replaced and draining well CT scan showing bilateral hydronephrosis and moderate diffuse bladder wall thickening c/w cystitis UA concerning for possible infection. Prot/Cr ratio 25g (and 8gm on repeat). TCK 73. Nephrology consulted and appreciate their input. Possibly pre-renal although has possibly ureteral obstruction from bladder wall thickening. Increased free water flushes and was on IVF Renal US showing no stones, masses or hydronephrosis Was Neville obstructed? UCx growing Klebsiella 50-100K treated appropriately Repeat renal function has normalized Resolved. Continue to monitor (6) Hypernatremia: Code(s): E87.0 - Hyperosmolality and hypernatremia Status: Acute Assessment and Plan: Related to TF and increased insensible losses. Benson 78 but could be higher if she had normal renal function. Na normal now Resolved. Continue free water flushes at higher rate. Continue to monitor (7) AMS (altered mental status): Code(s): R41.82 - Altered mental status, unspecified Status: Acute Assessment and Plan: Patient brought to the ED for altered mental status. Probably metabolic encephalopathy related to above Resolved. Back to baseline Continue current treatment as above (8) Quadriplegia: Code(s): G82.50 - Quadriplegia, unspecified Status: Acute Assessment and Plan: Related to brain tumor and surgery [facility]
== END 2023-10-15 12:39 | DRG 981 ==
LOC: ANHED 16:16 → ANH3MEDSUR 18:18
PROVIDERS: Family Medicine; Internal Medicine; Internal Medicine Nephrology; Surgery; Admitting Provider Hospitalist; Emergency Provider Emergency Medicine; PCP Family Medicine; Visit Provider Student in an Organized Health Care Education/Training Program
PROC: 0KBN0ZZ Excision of Right Hip Muscle, Open Approach (ICD-10-PCS; principal; 2023-10-06 08:30)
DX: N99.0 Postprocedural (acute) (chronic) kidney failure (principal); G82.50 Quadriplegia, unspecified; L89.154 Pressure ulcer of sacral region, stage 4; G93.41 Metabolic encephalopathy; N17.0 Acute kidney failure with tubular necrosis; G97.82 Other postprocedural complications and disorders of nervous system; E87.0 Hyperosmolality and hypernatremia; J95.89 Other postprocedural complications and disorders of respiratory system, not elsewhere classified; J96.10 Chronic respiratory failure, unspecified whether with hypoxia or hypercapnia; K94.23 Gastrostomy malfunction; B95.2 Enterococcus as the cause of diseases classified elsewhere; B96.1 Klebsiella pneumoniae [K. pneumoniae] as the cause of diseases classified elsewhere; E87.5 Hyperkalemia; R13.10 Dysphagia, unspecified; B96.5 Pseudomonas (aeruginosa) (mallei) (pseudomallei) as the cause of diseases classified elsewhere; E86.0 Dehydration; D53.1 Other megaloblastic anemias, not elsewhere classified; D63.8 Anemia in other chronic diseases classified elsewhere; Z20.822 Contact with and (suspected) exposure to COVID-19; Z93.0 Tracheostomy status; Z74.01 Bed confinement status; E66.9 Obesity, unspecified; Z68.33 Body mass index [BMI] 33.0-33.9, adult; R50.82 Postprocedural fever
CPT/HCPCS: 36415; 36430; 71045; 71250; 74018; 74176; 76775; 80048; 80053; 80069; 81001; 82274; 82533; 82550; 82570; 82607; 82728; 82746; 82948; 83540; 83550; 83605; 83735; 83930; 83935; 84100; 84156; 84300; 84439; 84443; 84480; 85025; 85027; 85055; 86255; 86850; 86900; 86901; 86920; 86923; 87040; 87070; 87077; 87086; 87147; 87181; 87186; 87205; 87637; 93005; 94640; 96360; 96361; 97110; 97112; 97162; 97166; 97530; 97535; 99285; A9270; G0378; J0696; J1650; J2371; J2405; J2704; J3010; J3370; J3420; J3480; J7030; J7050; J7070; J7120; P9016; Q5105